=== PATIENT | male | born 1960 | race Caucasian/White ===

== ENCOUNTER 2019-01-09 12:28 | Inpatient (IN) ==
--- OUTSIDE RECORDS SUMMARY | 2019-01-09 12:31 | External Medical Summary | Continuity of Care Document ---
:1960 Author Name Angle Cowan, Provider Address Unavailable Unavailable , Care Team Providers Name Role Phone Columba ODONNELL M.D., Suhail Delatorre Unavailable [email or web address] Meggan DELUNA Unavailable [email or web address] BELLE WATERMAN M.D., Maritza Unavailable Unavailable Unavailable Unavailable Unavailable Assessments Assessed Problems:Constipation Problems Arthritis (716.90) (M19.90) Constipation (564.00) (K59.00) Chronic obstructive pulmonary disease (496) (J44.9) Milia (706.2) (L72.0) Allergies and Adverse Reactions Chantix TABS (Allergy) Medications Polyethylene Glycol 3350 Oral Powder; ta ke 17GM (DISSOLVED IN 8 OUNCES OF WATER) by mouth once daily . DRINK THE MIXTURE as directed MIKIE Broderick Start: 29-Sep-2018 Quantity: 527 Refills: 4 Symbicort 160-4.5 MCG/ACT Inhalation Aer osol; INHALE 2 PUFFS BY MOUTH TWICE DAILY. RINSE MOUTH AFTER USE. Camryn Waterman III Start: 14-Sep-2018 Quantity: 1 6 GM Inhaler Refills: 5 ProAir HFA 108 (90 Base) MCG/ACT Inhalat ion Aerosol Solution; INHALE 2 PUFFS BY MOUTH 4 TIMES DAILY NEEDED MIKIE Charles Start: 06-Jul-2018 Quantity: 1 8.5 GM Inhaler Refills: 5 Ventolin HFA 108 (90 Base) MCG/ACT Inhalation Aerosol Solution; 2 PUFFS QID PRN Camryn Waterman III Start: 12-Jan-2018 Quantity: 1 18 GM Inhaler Refills: 5 Procedures Procedures not documented Immunizations Immunizations not documented Social History - Smoking Status Current every day smoker Interventions Medication ChangesPolyethylene Glycol 3350 Oral Powder - StartDiscussion/Summary Constipation - discussed increased water and fiber intake in diet. Should use miralax for the next few days at bedtime, can mix in prune juice. RTC prn any worsening or persistent sxs. Plan of Treatment Planned Observations Planned Goals not documented Results No Known Results Results not documented Encounters Appointment; Suhail Waterman III, M.D. 12-Jan-2018 15:00 Encounter Diagnosis: Problem not documented Appointment; [facility], [place] [id number] 12-Jan-2018 14:45 Encounter Diagnosis: Problem not documented Appointment; Shama Broderick PA-C 29-Sep-2018 11:15 Encounter Diagnosis: Problem not documented
[2019-01-09 13:19] LABS: Hematocrit (blood only) 45.1 % (42-52); Hemoglobin 16.2 g/dL (14.0-18.0); Mean Corpuscular Hgb Conc 35.9 g/dL (32-36); Mean Corpuscular Volume 88.1 fL (80-100); Mean Platelet Volume 9.9 fL (7.4-10.4); Platelet Count 241 K/uL (130-400); RDW Coefficient of Variation 13.4 % (11.5-14.5); RDW Standard Deviation 43.2 fL (36.4-46.3); Red Blood Count 5.12 M/uL (4.7-6.1); White Blood Count 21.61 K/uL (4.8-10.8)
[2019-01-09] MEDS ORDERED: ONDANSETRON INJ 2 MG/ML 2 ML VIAL IV STA (13:29)
[2019-01-09] MEDS ORDERED: MoRPHine SULFATE 4 MG/ML 1 ML CARP\\VIAL IV PRN (13:29)
[2019-01-09 13:34] LABS: BUN Creatinine Ratio 23.9 (10-20); Calcium 9.7 mg/dl (8.5-10.1); Creatinine Clr Calc Pharmacy 65.2 ml/min; Potassium 4.5 mmol/L (3.5-5.1)
[2019-01-09 13:37] LABS: Albumin Globulin Ratio 1.1 (0.9-2); Globulin 3.6 gm/dl (2.5-4.0); Total Protein 7.6 gm/dl (6.4-8.2)
[2019-01-09 14:08] LABS: Basophils # (auto) 0.01 K/uL (0-0.2); Immature Granulocytes # (auto) 0.09 K/uL (0.00-0.02); Immature Granulocytes % (auto) 0.4 %; Lymphocytes # (auto) 0.63 K/uL (1.2-3.4); Lymphocytes % (auto) 2.9 %; Monocytes # (auto) 0.75 K/uL (0.11-0.59); Monocytes % (auto) 3.5 %; Neutrophils # (auto) 20.13 K/uL (1.4-6.5); Neutrophils % (auto) 93.2 %
[2019-01-09] MEDS ORDERED: IOVERSOL 100ml IV PRN (15:18)
--- NOTE | 2019-01-09 15:32 | CT Scan Report ---
CT abd pelvis IV con only CLINICAL HISTORY: Mid abdominal pain. Vomiting. COMPARISON STUDY: None. TECHNIQUE: The patient was scanned in a dynamic helical fashion during intravenous administration of 94 cc of Optiray 320. A dose lowering technique was utilized adhering to the principles of ALARA. CT DOSE: 232.01 mGy.cm FINDINGS: Lower chest: There is pulmonary emphysema. There is minor right basilar atelectasis/scarring. Liver: There is an 8 mm left lobe hepatic hypodensity, likely representing a cyst. Gallbladder: Unremarkable. Spleen: Normal in size and attenuation. Pancreas: Unremarkable. Adrenal glands: Unremarkable. Kidneys: There are bilateral renal cysts. There is no hydronephrosis. There are nonobstructing right renal calculi measuring up to 3 mm in diameter. Bowel: Evaluation of the bowel is limited given the lack of orally administered contrast and the pauc ity of intra-abdominal fat. There are no transition zones to indicate bowel obstruction. By history t he appendix is surgically absent. There is sigmoid wall thickening. Acute diverticulitis is suspected . There are possible extraluminal gas, and a small perisigmoid abscess may be present. Peritoneum: There is no significant ascites. Vasculature: The abdominal aorta is normal in course and caliber. Adenopathy: None. Pelvic viscera: The bladder, and pelvic viscera are unremarkable. Skeletal structures: No destructive osseous lesions are seen. IMPRESSION: 1. Very difficult study to interpret secondary to the lack of orally administered contrast and the pa ucity of intra-abdominal fat 2. Nonobstructing left-sided nephrolithiasis 3. No evidence of bowel obstruction 4. Sigmoid wall thickening. Diverticulitis is suspected 5. Possible extraluminal gas bubbles and a small fluid collection in the perisigmoid region. A focal perforation with a small perisigmoid abscess must be considered. 6. If follow-up imaging is performed, oral and intravenous contrast should be administered. Electronically signed by: David Whitehead M.D. 01/09/2019 3:31 PM
[2019-01-09] MEDS ORDERED: PIPERACILLIN/TAZOBACTAM 4.5 GM/120 ML BAG IV ONE (15:35)
[2019-01-09] MEDS ORDERED: PIPERACILL/TAZOBAC CONSULT ACTIVE PRN (15:35)
--- NOTE | 2019-01-09 16:08 | History & Physical Report ---
Date of Service January 09, 2019 Assessment & Plan (1) Diverticulitis: As noted on CTAP, concerning for possible abscess and perf Awaiting surgical eval NPO with IVF morphine, zofran Started on zosyn in the ED, will continue WBC elevated, afebrile (2) Tobacco use disorder: Declines nicotine patch, ordered PRN (3) COPD (chronic obstructive pulmonary disease): continue home meds (4) DVT prophylaxis: SCDs only in case of need for OR History of Present Illness Primary Care Provider: NO PCP 58 y/o M c/o abd pain. 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 He thought he was dehydrated and increased his water intake, but this did not help and in fact his pain became worse. He had similar epigastric pain about 2.5-3 months ago and was dx with SBO as an outpt. He took miralax and this resolved. Given the pain was similar, he tried miralax again, but his pain continued to get worse. He started to have n/v today with worsening pain so he came to the ED for eval. Pt has no prior hx of diverticulitis. Pt was given IVF, zosyn, pain medications in the ED and feels his pain is now 4- 5/10, which is better, but still present. His last emesis was in the ED. He has not eaten in several days due to this pain. Pt denies fever, SOB, chest pain, c/d, LE pain or swelling. Allergies Allergy/AdvReac Type Severity Reaction Status Date / Time No Known Allergies Allergy Unverified 01/09/19 13:58 Home Medications Home Medications Medication Instructions Recorded Confirmed Type albuterol sulfate [ProAir HFA] 2 puff INHALATION QID PRN 01/09/19 01/09/19 History Past Med/Surg History Medical History COPD (chronic obstructive pulmonary disease) Social History Feels Safe at Home: Yes Smoking Status: Current every day smoker packs per day: 1 ; Hx Alcohol Use: No Hx Substance Use: No Review of Systems Review of Systems: Pertinent positives and negatives reviewed in HPI--all others negative Physical Exam Constitutional: well developed and + thin Eyes: normal visual anderson by confrontation and + anicteric sclerae Neck: normal visual inspection and trachea midline Respiratory: normal respiratory effort, lungs clear to auscultation Cardiovascular: Rate/Rhythm: regular rate and regular rhythm Gastrointestinal (Abdomen): Inspection/Auscultation: abdomen not distended Percussion/Palpation: + abdomen tender (epigastric, nonTTP in LLQ) and abdomen soft Musculoskeletal: Head/Neck/Chest: normocephalic and head atraumatic negative for edema, peripheral pulses intact Skin: no rashes, warm and dry Neurologic: awake; not confused Speech / Cognition: normal speech Psychiatric: A+Ox3, euthymic affect Results & Data Vital Signs (Past 12 Hours) Vital Signs Temp Pulse Pulse Resp BP BP Pulse Ox 01/09/19 15:24 82 20 140/87 93 01/09/19 13:10 98 01/09/19 12:44 36.5 C 64 20 134/80 98 Diagnostic Findings CTAP: diverticulitis with possible abscess and perf Code Status & VTE Plan Code Status Full code VTE Prophylaxis Plan VTE Prophylaxis will be ordered: Yes PG Care Time/CCT Total # of Minutes Spent Total Time Spent with Patient: Total time spent is greater than 50% in coordination of care (as documented) at patient's floor/unit and/or counseling patient:
[2019-01-09] MEDS ORDERED: MAGNESIUM HYDROXIDE SUSP 30 ML UDC PO PRN (16:50)
[2019-01-09] MEDS ORDERED: ACETAMINOPHEN 325 MG TAB PO PRN (16:50)
[2019-01-09] MEDS ORDERED: NICOTINE 21 MG/24 HR TDSY TD PRN (17:15)
[2019-01-09] MEDS: ONDANSETRON INJ 2 MG/ML 2 ML VIAL IV PRN (17:19)
[2019-01-09] MEDS: D5W AND NSS 1,000 ML IV SCH (17:26)
[2019-01-09 18:04] LABS: Appearance Urine Clear (Clear); Bacteria Urine Automated Negative (Negative); Bilirubin Urine Negative (Negative); Blood Urine 1+ (Negative); Color Urine Yellow; Glucose Urine UA Negative (Negative); Ketones Urine 1+ (Negative); Leukocyte Esterase Urine Negative (Negative); Nitrite Urine Negative (Negative); Protein Urine Trace (Negative); Specific Gravity Urine > 1.045 (1.000-1.030); Urobilinogen Urine Negative (Negative); pH Urine 5.5 (4.5-7.5)
--- NOTE | 2019-01-09 18:28 | Emergency Department Note ---
Entered by Venessa Aguilar acting as a scribe for Oumar Nova MD ED Provider Note CHIEF COMPLAINT: Abdominal pain HISTORY OF PRESENT ILLNESS: The patient is a 58 year old male who presents to the Emergency Room with complaints of abdominal pain that started 3 days ago. The patient states that he is currently in no pain. The patient notes that the pain does reach a 10/10 level on occasion. The patient notes that he has also been vomiting and has the chills. The patient denies taking any medication for the pain, but notes that he did take MiraLAX which is normal for him. The patient denies alcohol use, drugs use and abdomen surgeries. Pt denies LOC, headache, fevers, diaphoresis, visual changes, neck pain, chest pain, breathing difficulties, nausea, back pain, melena, hematochezia, urinary symptoms, numbness, weakness, lymphadenopathy, rash, or other complaints. REVIEW OF SYSTEMS: See HPI for pertinent positives and negatives. A total of ten systems were reviewed and were otherwise negative. PMHx/PSHx: COPD SOCIAL HISTORY: Patient lives at home. PHYSICAL EXAM: GENERAL: Awake, alert, well-appearing, in no distress HENT: Normocephalic, atraumatic. Oropharynx unremarkable. EYES: PERRL. Normal conjunctiva. Sclera non-icteric. NECK: Inspection normal. Non-tender. Supple. No nuchal rigidity. FROM. No masses. RESPIRATORY: Clear to auscultation. No wheezes. No rales. Normal respiratory effort. CARDIAC: Normal rate. Normal rhythm. No murmurs. No rubs. Extremities warm and well perfused. Pulses equal. No JVD. GI: Mid-abdominal tenderness. Soft, non-distended. No rebound or guarding. No masses. RECTAL: Deferred. MUSCULOSKELETAL: Atraumatic. Chest examination reveals no tenderness. The back is symmetrical on inspection without obvious abnormality. There is no CVA tenderness to palpation. No joint edema. LOWER EXTREMITIES: Calves are equal size bilaterally and non-tender. No edema. No discoloration. NEURO: Normal sensorium. No sensory or motor deficits noted. SKIN: No rash or jaundice noted. EMERGENCY DEPARTMENT COURSE: 1328: Past medical records reviewed. The patient was evaluated in room A3, and a complete history and physical examination were performed. 1453: I discussed the patient's case with Dr. Ogden- General surgery and he is agreeable for admission. 1559: I discussed the patient's case with Dr. Orona- [facility] Hospitalist. She will evaluate the patient for further management. MEDICAL DECISION MAKING: A3 Triage Nursing notes reviewed and agree them. Additional history obtained from the patient's . The patient's history was concerning for abdominal pain. Differential diagnosis: Etiologies such as , pancreatitis, obstruction, diverticulitis, PUD, biliary pathology, UTI, mesenteric ischemia, aortic pathology, infections, inflammatory bowel disease, renal colic, appendicitis, as well as others were entertained. Physical examination findings: As above. ER treatment provided: IV morphine IV Zofran IV Zosyn IV saline hydration On reassessment the patient felt better. Diagnostics interpreted by me: ECG: No acute ischemia or dysrhythmia. The labs revealed a moderate leukocytosis on CBC of 21,000. Chemistry panel and urinalysis unremarkable. Imaging studies: CT scan of the abdomen pelvis was performed and showed microperforated diverticulitis with questionable abscess. Consultation: A consultation was placed with the general surgeon on-call, Dr. Ogden. He agreed with the antibiotics and medical admission. Consultation was placed with Dr. Orona of internal medicine.. The case was discussed and diagnostics were reviewed. The patient was evaluated in the ER for further treatment. IMPRESSION: Diverticulitis of intestine with perforation and abscess, abdominal pain, leukocytosis. PLAN: Admitted as inpatient The scribe's documentation has been prepared under my direction and personally reviewed by me in its entirety. I confirm that the note above accurately reflects all work, treatment, procedures, and medical decision making performed by me. CRITICAL CARE: I have personally spent greater than 30 minutes of critical care time in the direct management of this patient. This includes bedside care, interpretation of diagnostic studies, and testing, discussion with consultants, patient, and family members, and other required patient management activities. This 30 minutes is in excess of all separately billable procedures. Impression & Plan Diverticulitis of intestine with perforation and abscess, Abdominal pain, Leukocytosis Past Med/Surg History Medical History COPD (chronic obstructive pulmonary disease) Social History Preferred Language: Bulgarian Communication Ability: Effective Grinding Room Supervisor Required: No Beliefs That Will Affect Care: None Current Living Situation: Spouse Feels Safe at Home: Yes Smoking Status: Current every day smoker Tobacco Type: cigarettes ; packs per day: 1 ; Second Hand Exposure: No ; Hx Alcohol Use: No Hx Substance Use: No Results & Data Vital Signs Vital Signs - 24 hr 01/09/19 12:44 01/09/19 13:10 01/09/19 15:24 Temperature 36.5 C Temperature Source Oral Sepsis Recent Fever Within 48 Hours No Sepsis New/Unexplained Change in Mental Status No Sepsis Action Taken by Nursing No Action Required Pulse Rate 64 Pulse Rate [Apical] 82 Pulse Rhythm [Apical] Regular Pulse Strength [Apical] Normal Respiratory Rate 20 20 Respiratory Effort / Characteristics Non-Labored Spontaneous Respiratory Depth Normal Respiratory Pattern Regular Blood Pressure 134/80 Blood Pressure [Left Arm] 140/87 Blood Pressure Mean 98 Blood Pressure Mean [Left Arm] 104 Blood Pressure Position Sitting Blood Pressure Position [Left Arm] Sitting Pulse Oximetry 98 98 93 Oxygen Delivery Method Room Air Room Air Home Medications Current Medication List: was personally reviewed by me Laboratory Data Attestation: I reviewed the patient's lab results. Result diagrams: 01/09/19 13:10 01/09/19 13:10 Lab Results 01/09/19 01/09/19 Range/Units 13:10 13:10 WBC 21.61 H (4.8-10.8) K/uL RBC 5.12 (4.7-6.1) M/uL Hgb 16.2 (14.0-18.0) g/dL Hct 45.1 (42-52) % MCV 88.1 (80-100) fL MCH 31.6 (25-34) pg MCHC 35.9 (32-36) g/dL RDW Std Deviation 43.2 (36.4-46.3) fL RDW Coeff of Shawanda 13.4 (11.5-14.5) % Plt Count 241 (130-400) K/uL MPV 9.9 (7.4-10.4) fL Immature Gran % (Auto) 0.4 % Neut % (Auto) 93.2 % Lymph % (Auto) 2.9 % Burke % (Auto) 3.5 % Eos % (Auto) 0.0 % Baso % (Auto) 0.0 % Immature Gran # (Auto) 0.09 H (0.00-0.02) K/uL Neut # (Auto) 20.13 H (1.4-6.5) K/uL Lymph # (Auto) 0.63 L (1.2-3.4) K/uL Burke # (Auto) 0.75 H (0.11-0.59) K/uL Eos # (Auto) 0.00 (0-0.5) K/uL Baso # (Auto) 0.01 (0-0.2) K/uL Sodium 134 L (136-145) mmol/L Potassium 4.5 (3.5-5.1) mmol/L Chloride 99 (98-107) mmol/L Carbon Dioxide 29 (21-32) mmol/L Anion Gap 6.0 (3-11) BUN 21 H (7-18) mg/dl Creatinine 0.88 (0.6-1.4) mg/dl Est Cr Clr Drug Dosing 65.2 ml/min Est GFR ( Amer) 109.0 Est GFR (Non-Af Amer) 94.0 BUN/Creatinine Ratio 23.9 H (10-20) Glucose 138 H (70-99) mg/dl Calcium 9.7 (8.5-10.1) mg/dl Total Bilirubin 1.0 (0.2-1) mg/dl AST 14 L (15-37) U/L ALT 17 (12-78) U/L Alkaline Phosphatase 85 (45-117) U/L Total Protein 7.6 (6.4-8.2) gm/dl Albumin 4.0 (3.4-5.0) gm/dl Globulin 3.6 (2.5-4.0) gm/dl Albumin/Globulin Ratio 1.1 (0.9-2) Lipase 61 L (73-393) U/L Administered Medications Dextrose/Sodium Chloride (D5w And Nss) 1,000 mls @ 100 mls/hr IV .Q10H SHANELLE Stop: 02/08/19 16:59 Last Admin: 01/09/19 17:26 Dose: 100 mls/hr Documented by: [id number] Ioversol (Optiray 320 100ml) 94 ml IV ONCE PRN PRN Reason: Interaction Checking Stop: 01/13/19 15:17 Last Admin: 01/09/19 15:19 Dose: 94 ml Documented by: [id number] Miscellaneous Information (Consult) 1 ea N/A UD PRN PRN Reason: Consult Stop: 02/08/19 15:34 Last Admin: 01/09/19 16:02 Dose: 1 ea Documented by: [id number] Ondansetron HCl (Zofran) 4 mg IV Q6H PRN PRN Reason: Nausea Stop: 02/08/19 16:49 Last Admin: 01/09/19 17:19 Dose: 4 mg Documented by: [id number] Discontinued Medications Piperacillin Sod/Tazobactam Sod (Zosyn) 4.5 gm in 120 mls @ 240 mls/hr IV NOW ONE Stop: 01/09/19 16:04 Last Infusion: 01/09/19 16:31 Dose: 0 mls/hr Documented by: [id number] Admin: 01/09/19 16:01 Dose: 240 mls/hr Documented by: [id number] Morphine Sulfate (Morphine Sulfate) 4 mg IV Q15M PRN PRN Reason: Pain Stop: 01/23/19 13:28 Last Admin: 01/09/19 13:39 Dose: 4 mg Documented by: [id number] Ondansetron HCl (Zofran) 4 mg IV NOW STA Stop: 01/09/19 13:30 Last Admin: 01/09/19 13:39 Dose: 4 mg Documented by: [id number] Imaging Data Radiologist's Impression: Radiology results as stated below per my review and the radiologist's interpretation: CT abd pelvis IV con only CLINICAL HISTORY: Mid abdominal pain. Vomiting. COMPARISON STUDY: None. TECHNIQUE: The patient was scanned in a dynamic helical fashion during intravenous administration of 94 cc of Optiray 320. A dose lowering technique was utilized adhering to the principles of ALARA. CT DOSE: 232.01 mGy.cm FINDINGS: Lower chest: There is pulmonary emphysema. There is minor right basilar atelectasis/scarring. Liver: There is an 8 mm left lobe hepatic hypodensity, likely representing a cyst. Gallbladder: Unremarkable. Spleen: Normal in size and attenuation. Pancreas: Unremarkable. Adrenal glands: Unremarkable. Kidneys: There are bilateral renal cysts. There is no hydronephrosis. There are nonobstructing right renal calculi measuring up to 3 mm in diameter. Bowel: Evaluation of the bowel is limited given the lack of orally administered contrast and the paucity of intra-abdominal fat. There are no transition zones to indicate bowel obstruction. By history the appendix is surgically absent. There is sigmoid wall thickening. Acute diverticulitis is suspected. There are possible extraluminal gas, and a small perisigmoid abscess may be present. Peritoneum: There is no significant ascites. Vasculature: The abdominal aorta is normal in course and caliber. Adenopathy: None. Pelvic viscera: The bladder, and pelvic viscera are unremarkable. Skeletal structures: No destructive osseous lesions are seen. IMPRESSION: 1. Very difficult study to interpret secondary to the lack of orally administered contrast and the paucity of intra-abdominal fat 2. Nonobstructing left-sided nephrolithiasis 3. No evidence of bowel obstruction 4. Sigmoid wall thickening. Diverticulitis is suspected 5. Possible extraluminal gas bubbles and a small fluid collection in the perisigmoid region. A focal perforation with a small perisigmoid abscess must be considered. 6. If follow-up imaging is performed, oral and intravenous contrast should be administered. Electronically signed by: David Whitehead M.D. 01/09/2019 3:31 PM Blood Pressure Blood Pressure Findings: Normal blood pressure Blood Pressure Disposition: did not require urgent referral Discharge Plan Visit Data *Final* Discharge Date/Time: 01/09/19 16:37 Chief Complaint: Abdominal Pain ED Provider: Oumar Nova Discharge Problem: Diverticulitis of intestine with perforation and abscess, Abdominal pain, Leukocytosis Patient Disposition: Admitted As Inpatient Discharge Instructions Interventions: ED Discharge Assessment Last Done: 01/09/19 16:37 Discharge Problem: Diverticulitis of intestine with perforation and abscess Qualifiers: Diverticulitis site: unspecified part of intestinal tract Diverticulitis bleeding: unspecified bleeding status Qualified Code(s): K57.80 - Diverticulitis of intestine, part unspecified, with perforation and abscess without bleeding Abdominal pain Qualifiers: Abdominal location: unspecified location Qualified Code(s): R10.9 - Unspecified abdominal pain Leukocytosis Qualifiers: Leukocytosis type: unspecified Qualified Code(s): D72.829 - Elevated white blood cell count, unspecified The scribe's documentation has been prepared under my direction and personally reviewed by me in its entirety. I confirm that the note above accurately r eflects all work, treatment, procedures, and medical decision making performed by me.
[2019-01-09] MEDS: PIPERACILLIN/TAZOBACTAM 3.375 GM in DEXTROSE 5% 100 ML IV SCH (20:45)
[2019-01-09] MEDS: MoRPHine SULFATE 2 MG/ML CARP IV PRN (22:04)
[2019-01-10] MEDS: MoRPHine SULFATE 2 MG/ML CARP IV PRN ×2 (02:13→08:15)
[2019-01-10] MEDS: D5W AND NSS 1,000 ML IV SCH ×3 (03:14→22:50)
[2019-01-10] MEDS: PIPERACILLIN/TAZOBACTAM 3.375 GM in DEXTROSE 5% 100 ML IV SCH ×3 (04:54→21:18)
[2019-01-10 06:58] LABS: Hemoglobin 14.2 g/dL (14.0-18.0); Mean Corpuscular Hgb Conc 36.4 g/dL (32-36); Mean Corpuscular Volume 87.4 fL (80-100); Mean Platelet Volume 9.5 fL (7.4-10.4); Platelet Count 255 K/uL (130-400); RDW Coefficient of Variation 13.5 % (11.5-14.5); RDW Standard Deviation 42.8 fL (36.4-46.3); Red Blood Count 4.46 M/uL (4.7-6.1); White Blood Count 22.78 K/uL (4.8-10.8)
[2019-01-10 07:24] LABS: BUN Creatinine Ratio 23.8 (10-20); Calcium 8.4 mg/dl (8.5-10.1); Creatinine Clr Calc Pharmacy 78.6 ml/min; Est GFR (African American) 117.7; Est GFR (Non-African American) 101.5
[2019-01-10 07:25] LABS: Basophils # (auto) 0.01 K/uL (0-0.2); Eosinophils # (auto) 0.01 K/uL (0-0.5); Immature Granulocytes # (auto) 0.05 K/uL (0.00-0.02); Immature Granulocytes % (auto) 0.2 %; Lymphocytes # (auto) 1.05 K/uL (1.2-3.4); Lymphocytes % (auto) 4.6 %; Monocytes # (auto) 1.47 K/uL (0.11-0.59); Monocytes % (auto) 6.5 %; Neutrophils # (auto) 20.19 K/uL (1.4-6.5); Neutrophils % (auto) 88.7 %
--- NOTE | 2019-01-10 09:36 | Surgery Consultation ---
Date of Consultation January 10, 2019 Assessment & Plan (1) Diverticulitis of intestine with perforation and abscess: no surgical indications yet. keep npo continue iv antibiotics and pain control if no better clinically by tomorrow will repeat CT scan with oral contrast d/w primary team History of Present Illness Attending Physician: Rosario Orona DO History of Present Illness pt with 3-4 day history of generalized abdominal pain which worsened. CT reveals acute diverticulitis. ? micro-perf with small abcess. pt still feeling "about the same" as when he came in. Allergies Allergy/AdvReac Type Severity Reaction Status Date / Time No Known Allergies Allergy Unverified 01/09/19 13:58 Home Medications Home Medications Medication Instructions Recorded Confirmed Type albuterol sulfate [ProAir HFA] 2 puff INHALATION QID PRN 01/09/19 01/09/19 History Patient History Medical History COPD (chronic obstructive pulmonary disease) Social History Preferred Language: Slovenian Communication Ability: Effective Chocolate Molder Required: No Beliefs That Will Affect Care: None Current Living Situation: Spouse Feels Safe at Home: Yes Smoking Status: Current every day smoker Tobacco Type: cigarettes ; packs per day: 1 ; Second Hand Exposure: No ; Hx Alcohol Use: No Hx Substance Use: No Review of Systems Review of Systems: All systems reviewed & are unremarkable except as noted in HPI & below Physical Exam Constitutional: WD/WN, vitals as above no acute distress and not ill appearing Eyes: PERRL, conjunctivae normal, anicteric sclerae EOM intact bilaterally ENMT: external ear and nose normal, oropharynx normal Ears: no hearing impairment Neck: trachea midline, no thyromegaly Respiratory: normal respiratory effort; no respiratory distress and does not use accessory muscles Cardiovascular: Rate/Rhythm: regular rate and regular rhythm Gastrointestinal (Abdomen): soft. nd. +suprapubic ttp. +guarding. no rigidity. Skin: no rashes, warm and dry Psychiatric: Orientation: alert, oriented x 3 and cooperative Results & Data Vital Signs (Past 12 Hours) Vital Signs Temp Pulse Resp BP Pulse Ox 01/10/19 07:18 37.2 C 77 16 133/85 91 01/09/19 23:05 37.1 C 83 16 121/80 91 PG Care Time/CCT Total # of Minutes Spent Total Time Spent with Patient: Total time spent is greater than 50% in coordination of care (as documented) at patient's floor/unit and/or counseling patient: (1) Diverticulitis of intestine with perforation and abscess Diverticulitis bleeding: unspecified bleeding status Diverticulitis site: unspecified part of intestinal tract Qualified Code(s): K57.80 - Diverticulitis of intestine, part unspecified, with perforation and abscess without bleeding
[2019-01-10] MEDS: ACETAMINOPHEN 1,000 MG/100 ML VIAL IV PRN ×2 (09:42→19:22)
--- NOTE | 2019-01-10 11:46 | Hospitalist Progress Note ---
Date of Service January 10, 2019 Assessment & Plan (1) Diverticulitis: Patient seen by Dr. Ogden from general surgery this morning. Plan is to continue bowel rest with IVF and IV Zosyn. Leukocytosis persists this morning at 22.78. We will continue to monitor. Repeat in a.m. He remains afebrile. Patient continues to have pain 10 out of 10 [address]. Discussed with Dr. Ogden this morning. Will discontinue morphine, and transition him to IV Dilaudid. We will also add an IV Tylenol. (2) Tobacco use disorder: Declines nicotine patch, ordered PRN (3) COPD (chronic obstructive pulmonary disease): Stable with no acute exacerbations. Continue home meds (4) DVT prophylaxis: SCDs only in case of need for OR Subjective 58-year-old male admitted with diverticulitis. Patient complaining of abdominal pain 10 out of 10 this morning after IV morphine. He denies nausea or vomiting. Denies any bowel movements. He was seen by Dr. Ogden this morning, who plans to continue bowel rest and IVF. Patient remains on Zosyn. Review of Systems Constitutional: no fever and no chills Eyes: no worsening vision Ear, Nose, Mouth, Throat: no dizziness Respiratory: no dyspnea Cardiovascular: no chest pain Gastrointestinal: + abdominal pain (10/10); no nausea and no vomiting Genitourinary: no dysuria, no difficulty urinating and no hematuria Psychiatric: no confusion Physical Exam Physical Exam: Temp Pulse Resp BP Pulse Ox 37.2 C 77 16 133/85 91 01/10/19 07:18 01/10/19 07:18 01/10/19 07:18 01/10/19 07:18 01/10/19 07:18 Patient is afebrile. Vital signs stable. Constitutional: + acute distress (mild acute distress), + thin and cooperative ENMT: Ears: no hearing impairment Neck: trachea midline, no thyromegaly neck nontender Respiratory: normal respiratory effort, lungs clear to auscultation Cardiovascular: RRR, no murmur, no edema Gastrointestinal (Abdomen): Inspection/Auscultation: normal bowel sounds; abdomen not distended Percussion/Palpation: + abdomen tender and abdomen soft; no guarding Psychiatric: A+Ox3, euthymic affect Results & Data Vital Signs (Past 12 Hours) Vital Signs Temp Pulse Resp BP Pulse Ox 08/18/19 07:18 37.2 C 77 16 133/85 91 PG Care Time/CCT Total # of Minutes Spent Total Time Spent with Patient: Total time spent is greater than 50% in coordination of care (as documented) at patient's floor/unit and/or counseling patient:
[2019-01-10] MEDS: ONDANSETRON INJ 2 MG/ML 2 ML VIAL IV PRN (13:52)
[2019-01-10] MEDS: HYDROmorphone INJ 0.5 MG/0.5 ML SYR IV PRN ×2 (13:53→17:14)
[2019-01-11] MEDS: HYDROmorphone INJ 0.5 MG/0.5 ML SYR IV PRN ×6 (00:48→23:37)
[2019-01-11] MEDS: PIPERACILLIN/TAZOBACTAM 3.375 GM in DEXTROSE 5% 100 ML IV SCH ×3 (05:55→19:57)
[2019-01-11] MEDS: D5W AND NSS 1,000 ML IV SCH ×2 (06:01→16:02)
[2019-01-11 06:06] LABS: Basophils # (auto) 0.02 K/uL (0-0.2); Basophils % (auto) 0.1 %; Eosinophils # (auto) 0.02 K/uL (0-0.5); Eosinophils % (auto) 0.1 %; Hematocrit (blood only) 38.1 % (42-52); Immature Granulocytes # (auto) 0.04 K/uL (0.00-0.02); Immature Granulocytes % (auto) 0.2 %; Lymphocytes # (auto) 0.73 K/uL (1.2-3.4); Lymphocytes % (auto) 4.4 %; Mean Corpuscular Hgb Conc 34.1 g/dL (32-36); Mean Corpuscular Volume 89.4 fL (80-100); Mean Platelet Volume 9.6 fL (7.4-10.4); Monocytes % (auto) 4.8 %; Neutrophils % (auto) 90.4 %; Platelet Count 221 K/uL (130-400); RDW Coefficient of Variation 13.6 % (11.5-14.5); RDW Standard Deviation 44.6 fL (36.4-46.3); Red Blood Count 4.26 M/uL (4.7-6.1); White Blood Count 16.61 K/uL (4.8-10.8)
[2019-01-11 06:41] LABS: BUN Creatinine Ratio 21.2 (10-20); Calcium 8.1 mg/dl (8.5-10.1); Creatinine Clr Calc Pharmacy 92.5 ml/min; Est GFR (African American) 125.8; Est GFR (Non-African American) 108.6; Potassium 3.8 mmol/L (3.5-5.1)
--- NOTE | 2019-01-11 08:03 | Surgery Progress Note ---
Date of Service January 11, 2019 Assessment & Plan (1) Diverticulitis of intestine with perforation and abscess: clinically improving. afebrile. wbc decreasing would keep npo/ice chips for today yet will order ct with oral contrast for tomorrow before initiating diet. Subjective pt still with supra-pubic pain but improved from yesterday. no new complaints. Physical Exam Physical Exam: alert/oriented. nad abd: soft. +ttp supra-pubic region and LLQ. no peritoneal signs. Results & Data Vital Signs (Past 12 Hours) Vital Signs Temp Pulse Pulse Resp BP Pulse Ox 01/11/19 07:51 36.8 C 71 18 120/78 93 01/10/19 23:02 37.1 C 85 16 121/73 90 PG Care Time/CCT Total # of Minutes Spent Total Time Spent with Patient: Total time spent is greater than 50% in coordination of care (as documented) at patient's floor/unit and/or counseling patient: (1) Diverticulitis of intestine with perforation and abscess Diverticulitis bleeding: unspecified bleeding status Diverticulitis site: unspecified part of intestinal tract Qualified Code(s): K57.80 - Diverticulitis of intestine, part unspecified, with perforation and abscess without bleeding
--- NOTE | 2019-01-11 11:33 | Hospitalist Progress Note ---
Date of Service January 11, 2019 Assessment & Plan (1) Diverticulitis: - Initial CT with suggested diverticulitis with possible extraluminal gas and fluid collection in perisigmoid region; planning on repeat CT on 01/12 prior to diet advancement - Leukocytosis improving and remaining afebrile; pain improving be remains and better response with Dilaudid; Dilaudid PRN and Tylenol PRM - Continue NPO/ice chips pending repeat CT tomorrow; IVF at 100 mL/hr and Zosyn therapy - Reports no bowel movement since admission but continues to pass flatus Present on Admission?: Yes (2) COPD (chronic obstructive pulmonary disease): - No acute exacerbation; utilizing PRN oxygen for comfort here but does not utilize at home - Albuterol PRN; denies need for nebulizers at this time Present on Admission?: Yes (3) Tobacco use disorder: - STABLE - Declines nicotine patch, ordered PRN (4) DVT prophylaxis: - SCDs/Ambulation Disposition: Await pain improvement/diet advancement; 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 Pain medication is helping. He continues to pass flatus but no bowel movement. He does report some congestion which he states is normal for him given his COPD and utilizes as needed O2 but normally does not use this at home. Verbalizes no new complaints at this time. Review of Systems Constitutional: no fever and no chills Ear, Nose, Mouth, Throat: + nasal congestion; no sore throat Respiratory: + chest congestion; no cough, no dyspnea and no wheezing Cardiovascular: no chest pain and no edema Gastrointestinal: + abdominal pain and + constipation; no nausea, no vomiting and no diarrhea/loose stools Genitourinary: no dysuria Integumentary: no rash Physical Exam Constitutional: WD/WN, vitals as above Eyes: + anicteric sclerae ENMT: Ears: no hearing impairment Neck: normal visual inspection and trachea midline Respiratory: normal respiratory effort Auscultation: lungs clear to auscultation bilaterally Cardiovascular: RRR, no murmur, no edema Gastrointestinal (Abdomen): Inspection/Auscultation: normal bowel sounds Percussion/Palpation: + abdomen tender Musculoskeletal: Head/Neck/Chest: normocephalic and head atraumatic Skin: no rashes, warm and dry Neurologic: moves all extremities Psychiatric: A+Ox3, euthymic affect Results & Data Vital Signs (Past 12 Hours) Vital Signs Temp Pulse Resp BP Pulse Ox 01/11/19 07:51 36.8 C 71 18 120/78 93 PG Care Time/CCT Total # of Minutes Spent Total Time Spent with Patient: Total time spent is greater than 50% in coordination of care (as documented) at patient's floor/unit and/or counseling patient:
[2019-01-11] MEDS: ACETAMINOPHEN 1,000 MG/100 ML VIAL IV PRN (19:36)
[2019-01-12] MEDS: D5W AND NSS 1,000 ML IV SCH ×3 (01:53→21:37)
[2019-01-12] MEDS: HYDROmorphone INJ 0.5 MG/0.5 ML SYR IV PRN ×5 (03:17→17:46)
[2019-01-12] MEDS: PIPERACILLIN/TAZOBACTAM 3.375 GM in DEXTROSE 5% 100 ML IV SCH ×3 (05:01→20:19)
[2019-01-12] MEDS: ACETAMINOPHEN 1,000 MG/100 ML VIAL IV PRN ×2 (06:19→19:49)
[2019-01-12 07:10] LABS: Basophils # (auto) 0.03 K/uL (0-0.2); Basophils % (auto) 0.2 %; Eosinophils # (auto) 0.07 K/uL (0-0.5); Eosinophils % (auto) 0.4 %; Hematocrit (blood only) 38.8 % (42-52); Hemoglobin 13.5 g/dL (14.0-18.0); Immature Granulocytes # (auto) 0.05 K/uL (0.00-0.02); Immature Granulocytes % (auto) 0.3 %; Lymphocytes # (auto) 1.07 K/uL (1.2-3.4); Lymphocytes % (auto) 6.7 %; Mean Corpuscular Hgb Conc 34.8 g/dL (32-36); Mean Corpuscular Volume 88.8 fL (80-100); Mean Platelet Volume 9.6 fL (7.4-10.4); Monocytes # (auto) 1.12 K/uL (0.11-0.59); Neutrophils # (auto) 13.64 K/uL (1.4-6.5); Neutrophils % (auto) 85.4 %; Platelet Count 277 K/uL (130-400); RDW Coefficient of Variation 13.5 % (11.5-14.5); RDW Standard Deviation 44.4 fL (36.4-46.3); Red Blood Count 4.37 M/uL (4.7-6.1); White Blood Count 15.98 K/uL (4.8-10.8)
[2019-01-12 07:53] LABS: BUN Creatinine Ratio 13.1 (10-20); Calcium 8.3 mg/dl (8.5-10.1); Creatinine Clr Calc Pharmacy 86.9 ml/min; Est GFR (African American) 122.7; Est GFR (Non-African American) 105.8; Potassium 3.5 mmol/L (3.5-5.1)
[2019-01-12] MEDS ORDERED: IOVERSOL 100ml IV PRN (08:11)
--- NOTE | 2019-01-12 08:34 | Surgery Progress Note ---
Date of Service January 12, 2019 Assessment & Plan (1) Diverticulitis of intestine with perforation and abscess: clinically doing much better results of CT pending continue IV antibiotics if CT looks ok we can start clears, possibly full liquids later tonight/tomorrow AM Subjective continues to feel better each day. currently no pain. "hungry" Physical Exam Physical Exam: alert/oriented. nad abd: soft. minimal LLQ/suprapubic tenderness Results & Data Vital Signs (Past 12 Hours) Vital Signs Temp Pulse Resp BP Pulse Ox 01/12/19 06:55 36.7 C 71 20 135/75 93 01/11/19 22:59 36.9 C 72 16 142/80 H 91 PG Care Time/CCT Total # of Minutes Spent Total Time Spent with Patient: Total time spent is greater than 50% in coordination of care (as documented) at patient's floor/unit and/or counseling patient: (1) Diverticulitis of intestine with perforation and abscess Diverticulitis bleeding: unspecified bleeding status Diverticulitis site: unspecified part of intestinal tract Qualified Code(s): K57.80 - Diverticulitis of intestine, part unspecified, with perforation and abscess without bleeding
--- NOTE | 2019-01-12 08:41 | CT Scan Report ---
ABDOMEN AND PELVIS CT WITH IV AND ORAL CONTRAST CT DOSE: 241.28 mGycm HISTORY: Acute lower abdominal pain with diverticulitis. diverticulitis, ? abscess TECHNIQUE: Multiaxial CT images of the abdomen and pelvis were performed following the use of intrave nous and oral contrast. A dose lowering technique was utilized adhering to the principles of ALARA. COMPARISON STUDY: CT abdomen and pelvis 01/09/2019. FINDINGS: Trace pleural effusions. Emphysema with bibasilar bronchial wall thickening. Mild dependent subsegmen tania bibasilar atelectasis. There is no gross pneumatosis or pneumoperitoneum. Imaged inferior cardiac chambers appear unremarkable. Probable cyst of the left hepatic lobe, 7 mm. Mild periportal edema. M ild gallbladder distention. Mild prominence of the intrahepatic and extrahepatic biliary tree without obstructing lesion identified. Pancreas, spleen and adrenal glands appear unremarkable. There are a few scattered cysts noted about the kidneys bilaterally measuring up to 11 mm on the left . There are least 3 nonobstructing calculi noted about the left kidney measuring up to 4 mm. No urete ral calculi or obstructive uropathy identified. Mild urinary bladder wall thickening with mild prosta megaly. Calcified plaque of the abdominal aorta without aneurysm. No adenopathy. Study is again diffi cult to interpret secondary to paucity of intra-abdominal fat. No small bowel obstruction. Wall thick ening of the sigmoid colon is redemonstrated with a few scattered foci of extraluminal air within the sigmoid mesocolon (for example image 256 series 3). Additionally, there is an air and fluid-filled s tructure within the presacral distribution on image 232 series 3 which measures 2.1 x 3.2 cm, unchang ed from comparison. No large drainable fluid collection. Air-fluid levels noted throughout the large bowel suggestive of diarrheal illness. Nonvisualization of the appendix. Soft tissues are unremarkabl e. Bones appear to be intact. No suspicious bone lesions. IMPRESSION: 1. Circumferential wall thickening of the sigmoid colon redemonstrated suggestive of acute diverticul itis or colitis. Again noted are several foci of extraluminal air within the sigmoid mesocolon compat ible with associated microperforation. Air and fluid-filled structure within the presacral distributi on measuring up to 2.1 x 3.2 cm is unchanged suggestive of a small abscess or bowel loop. Close clini chikis follow-up is needed. 2. No bowel obstruction. 3. Nonobstructing left renal calculi. 4. Air-fluid levels throughout the colon suggestive of diarrheal illness. 5. Additional findings as above. Electronically signed by: Dustin Ferris M.D. 01/12/2019 8:40 AM
--- NOTE | 2019-01-12 12:46 | Hospitalist Progress Note ---
Date of Service January 12, 2019 Assessment & Plan (1) Diverticulitis: - Initial CT which suggested diverticulitis with possible extraluminal gas and fluid collection in perisigmoid region; repeat CT on 01/12 with redemonstration of findings on initial CT - Leukocytosis improving and remaining afebrile; pain improving be remains and better response with Dilaudid; Dilaudid PRN and Tylenol PRN - Advanced diet to clear liquids and advancement pending tolerance; IVF at 100 mL/hr and Zosyn therapy - Reports no bowel movement since admission but continues to pass flatus Present on Admission?: Yes (2) COPD (chronic obstructive pulmonary disease): - No acute exacerbation; utilizing PRN oxygen for comfort here but does not utilize at home - Albuterol PRN; denies need for nebulizers at this time Present on Admission?: Yes (3) Tobacco use disorder: - STABLE - Declines nicotine patch, ordered PRN Present on Admission?: Yes (4) DVT prophylaxis: - SCDs/Ambulation Disposition: Await pain improvement/diet advancement; 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 He does state that he feels like his bloating is making it hard to him to take deep breaths but does not feel like his breathing/COPD is bothering him. He was just moved to a clear liquid diet this AM. He states he tolerated coffee so far. Still no bowel movement. Review of Systems Constitutional: no fever and no chills Respiratory: no cough, no dyspnea and no wheezing Cardiovascular: no chest pain Gastrointestinal: + abdominal pain, + bloating and + constipation; no nausea, no vomiting and no diarrhea/loose stools Genitourinary: no dysuria Integumentary: no rash Physical Exam Constitutional: WD/WN, vitals as above Eyes: + anicteric sclerae ENMT: Ears: no hearing impairment Neck: normal visual inspection and trachea midline Respiratory: normal respiratory effort, lungs clear to auscultation Cardiovascular: RRR, no murmur, no edema Gastrointestinal (Abdomen): Inspection/Auscultation: normal bowel sounds Percussion/Palpation: + abdomen tender Musculoskeletal: Head/Neck/Chest: normocephalic and head atraumatic Skin: no rashes, warm and dry Neurologic: moves all extremities Psychiatric: A+Ox3, euthymic affect Results & Data Vital Signs (Past 12 Hours) Vital Signs Temp Pulse Resp BP Pulse Ox 01/12/19 06:55 36.7 C 71 20 135/75 93 PG Care Time/CCT Total # of Minutes Spent Total Time Spent with Patient: Total time spent is greater than 50% in co ordination of care (as documented) at patient's floor/unit and/or counseling patient:
[2019-01-12] MEDS: ONDANSETRON INJ 2 MG/ML 2 ML VIAL IV PRN (19:53)
[2019-01-13] MEDS: HYDROmorphone INJ 0.5 MG/0.5 ML SYR IV PRN ×4 (00:02→20:34)
[2019-01-13] MEDS: ACETAMINOPHEN 1,000 MG/100 ML VIAL IV PRN ×2 (05:11→16:58)
[2019-01-13] MEDS: PIPERACILLIN/TAZOBACTAM 3.375 GM in DEXTROSE 5% 100 ML IV SCH ×3 (05:14→20:34)
[2019-01-13] MEDS: ONDANSETRON INJ 2 MG/ML 2 ML VIAL IV PRN (05:40)
[2019-01-13 07:00] LABS: Basophils # (auto) 0.01 K/uL (0-0.2); Basophils % (auto) 0.1 %; Eosinophils # (auto) 0.04 K/uL (0-0.5); Eosinophils % (auto) 0.3 %; Immature Granulocytes # (auto) 0.03 K/uL (0.00-0.02); Immature Granulocytes % (auto) 0.2 %; Lymphocytes # (auto) 0.64 K/uL (1.2-3.4); Lymphocytes % (auto) 4.4 %; Mean Corpuscular Hgb Conc 35.7 g/dL (32-36); Mean Corpuscular Volume 88.8 fL (80-100); Mean Platelet Volume 9.8 fL (7.4-10.4); Monocytes # (auto) 1.06 K/uL (0.11-0.59); Monocytes % (auto) 7.3 %; Neutrophils # (auto) 12.72 K/uL (1.4-6.5); Neutrophils % (auto) 87.7 %; Platelet Count 290 K/uL (130-400); RDW Coefficient of Variation 13.6 % (11.5-14.5); RDW Standard Deviation 44.5 fL (36.4-46.3); Red Blood Count 4.73 M/uL (4.7-6.1)
[2019-01-13 07:28] LABS: BUN Creatinine Ratio 12.8 (10-20); Calcium 8.3 mg/dl (8.5-10.1); Creatinine Clr Calc Pharmacy 91.1 ml/min; Est GFR (Non-African American) 107.9; Potassium 3.7 mmol/L (3.5-5.1)
[2019-01-13] MEDS: D5W AND NSS 1,000 ML IV SCH ×2 (07:50→17:19)
--- NOTE | 2019-01-13 07:53 | Surgery Progress Note ---
Date of Service January 13, 2019 Assessment & Plan (1) Diverticulitis of intestine with perforation and abscess: Patient had a CT abd/pelvis yesterday that was essentially unchanged and was started on clears. Since patient is slow to progress with minimal bowel function, associated with + nausea and emesis yesterday we suggest continuing on clear liquids today. If improves okay to advance to full liquids later today vs tomorrow. WBC is slowly downtrending. Continue to await return of meaningful bowel function. as above however he is telling me currently he is feeling better this AM. no pain currently. can have some full liquids later if he wants continue IV antibiotics. will continue to follow along. Subjective Patient states he feels similar to yesterday. He is not passing much gas and still endorses some abdominal pain/bloating. Had a bout of emesis yesterday with some nausea, managed with prn zofran. Physical Exam Constitutional: no acute distress Gastrointestinal (Abdomen): Inspection/Auscultation: + abdomen distended Percussion/Palpation: + abdomen tender (mildy tender in LLQ) and + abdomen firm Results & Data Vital Signs (Past 12 Hours) Vital Signs Temp Pulse Pulse Resp BP Pulse Ox 01/13/19 07:43 36.8 C 66 17 132/80 90 01/12/19 23:02 36.7 C 67 16 151/79 H 92 PG Care Time/CCT Total # of Minutes Spent Total Time Spent with Patient: Total time spent is greater than 50% in coordination of care (as documented) at patient's floor/unit and/or counseling patient: (1) Diverticulitis of intestine with perforation and abscess Diverticulitis bleeding: unspecified bleeding status Diverticulitis site: unspecified part of intestinal tract Qualified Code(s): K57.80 - Diverticulitis of intestine, part unspecified, with perforation and abscess without bleeding
--- NOTE | 2019-01-13 10:16 | Hospitalist Progress Note ---
Date of Service January 13, 2019 Assessment & Plan (1) Diverticulitis: - Initial CT which suggested diverticulitis with possible extraluminal gas and fluid collection in perisigmoid region; repeat CT on 01/12 with re- demonstration of findings on initial CT - Leukocytosis improving and remaining afebrile; pain improving be remains and better response with Dilaudid; Dilaudid PRN and Tylenol PRN - Advanced diet to full liquids and advancement pending tolerance; IVF at 100 mL/hr and Zosyn therapy - Reports no bowel movement since admission but continues to pass flatus - will add Colace 100 mg BID for now to help soften stool without increasing peristalsis/pain but likely if adequate BM could ultimately help with the discomfort/bloating (2) COPD (chronic obstructive pulmonary disease): - No acute exacerbation; utilizing PRN oxygen for comfort here but does not utilize at home - Albuterol PRN; denies need for nebulizers at this time (3) Tobacco use disorder: - STABLE - Declines nicotine patch, ordered PRN (4) DVT prophylaxis: - SCDs/Ambulation Disposition: Await pain improvement/diet advancement - slowly progressing; 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 Did have some nausea and emesis yesterday. Tolerating diet so far. Continues to be bloated but notes it is a little easier to breath today. Still no BM but is passing flatus. Review of Systems Constitutional: no fever and no chills Respiratory: no cough, no dyspnea and no wheezing Cardiovascular: no chest pain, no palpitations and no edema Gastrointestinal: + abdominal pain, + bloating and + constipation; no nausea, no vomiting and no diarrhea/loose stools Genitourinary: no dysuria Physical Exam Constitutional: WD/WN, vitals as above Eyes: + anicteric sclerae ENMT: Ears: no hearing impairment Neck: normal visual inspection and trachea midline Respiratory: normal respiratory effort, lungs clear to auscultation Cardiovascular: RRR, no murmur, no edema Gastrointestinal (Abdomen): Inspection/Auscultation: + abdomen distended and normal bowel sounds Percussion/Palpation: abdomen nontender Musculoskeletal: Head/Neck/Chest: normocephalic and head atraumatic Skin: no rashes, warm and dry Neurologic: moves all extremities Psychiatric: A+Ox3, euthymic affect Results & Data Vital Signs (Past 12 Hours) Vital Signs Temp Pulse Pulse Resp BP Pulse Ox 01/13/19 07:43 36.8 C 66 17 132/80 90 01/12/19 23:02 36.7 C 67 16 151/79 H 92 PG Care Time/CCT Total # of Minutes Spent Total Time Spent with Patient: Total time spent is greater than 50% in coordination of care (as documented) at patient's floor/unit and/or counseling patient:
[2019-01-13] MEDS: DOCUSATE SODIUM 100 MG CAP PO SCH ×2 (10:53→20:25)
[2019-01-14] MEDS: HYDROmorphone INJ 0.5 MG/0.5 ML SYR IV PRN ×6 (00:21→19:33)
[2019-01-14] MEDS: D5W AND NSS 1,000 ML IV SCH ×3 (03:05→21:06)
[2019-01-14] MEDS ORDERED: Nursing to Pharmacy Communication ONE (03:09)
[2019-01-14] MEDS: PIPERACILLIN/TAZOBACTAM 3.375 GM in DEXTROSE 5% 100 ML IV SCH ×3 (04:32→21:04)
[2019-01-14] MEDS: ACETAMINOPHEN 1,000 MG/100 ML VIAL IV PRN ×2 (04:57→21:59)
[2019-01-14] MEDS: DOCUSATE SODIUM 100 MG CAP PO SCH ×2 (07:35→11:57)
--- NOTE | 2019-01-14 09:35 | Surgery Progress Note ---
Date of Service January 14, 2019 Assessment & Plan (1) Diverticulitis of intestine with perforation and abscess: Patient is slow to progress with diet advancement. Will order labs to check WBC this morning and obtain a KUB to evaluate for ileus. Continue IV abx and IVF. Encourage ambulation as tolerated. as above. xray c/w ileus vs early sbo. no emesis today. no nausea currently. will back off to npo/sips. repeat kub tomorrow wbc continues to improve. his LLQ pain he presented with has resolved. main complaint now is distension and nausea. Subjective Patient states he doesn't feel much improvement from yesterday and still endors es abdominal pain. States he tried drinking some liquids yesterday,but feels nauseas when he does and endorsed vomiting x1. He is passing some loose stool, but not much gas. States he tries to ambulate in the halls after getting pain medication. Physical Exam Constitutional: no acute distress Gastrointestinal (Abdomen): Inspection/Auscultation: + abdomen distended Percussion/Palpation: + abdomen tender (in lower abdominal region) and + abdomen firm Results & Data Vital Signs (Past 12 Hours) Vital Signs Temp Pulse Pulse Resp BP Pulse Ox 01/14/19 07:29 36.5 C 63 18 148/87 H 93 01/13/19 23:25 36.7 C 74 16 124/78 91 PG Care Time/CCT Total # of Minutes Spent Total Time Spent with Patient: Total time spent is greater than 50% in coordination of care (as documented) at patient's floor/unit and/or counseling patient: (1) Diverticulitis of intestine with perforation and abscess Diverticulitis bleeding: unspecified bleeding status Diverticulitis site: unspecified part of intestinal tract Qualified Code(s): K57.80 - Diverticulitis of intestine, part unspecified, with perforation and abscess without bleeding
[2019-01-14 09:39] LABS: Basophils # (auto) 0.03 K/uL (0-0.2); Basophils % (auto) 0.2 %; Eosinophils # (auto) 0.06 K/uL (0-0.5); Eosinophils % (auto) 0.5 %; Hematocrit (blood only) 40.5 % (42-52); Immature Granulocytes # (auto) 0.05 K/uL (0.00-0.02); Immature Granulocytes % (auto) 0.4 %; Lymphocytes # (auto) 1.03 K/uL (1.2-3.4); Lymphocytes % (auto) 8.1 %; Mean Corpuscular Hgb Conc 34.6 g/dL (32-36); Mean Corpuscular Volume 89.2 fL (80-100); Mean Platelet Volume 9.2 fL (7.4-10.4); Monocytes # (auto) 0.99 K/uL (0.11-0.59); Monocytes % (auto) 7.8 %; Neutrophils # (auto) 10.55 K/uL (1.4-6.5); Platelet Count 326 K/uL (130-400); RDW Coefficient of Variation 13.6 % (11.5-14.5); RDW Standard Deviation 44.4 fL (36.4-46.3); Red Blood Count 4.54 M/uL (4.7-6.1); White Blood Count 12.71 K/uL (4.8-10.8)
[2019-01-14 10:09] LABS: BUN Creatinine Ratio 18.1 (10-20); Calcium 8.1 mg/dl (8.5-10.1); Creatinine Clr Calc Pharmacy 91.1 ml/min; Est GFR (Non-African American) 107.9; Potassium 3.7 mmol/L (3.5-5.1)
--- NOTE | 2019-01-14 10:21 | XRay Report ---
KUB CLINICAL HISTORY: Abdominal distention. COMPARISON STUDY: CT of the abdomen and pelvis January 12, 2019. FINDINGS: Oral contrast within portions of the bowel is noted. There has been interval development of small bowel dilatation. Multiple loops of mildly dilated small bowel measure up to 3.9 cm in caliber since CT of January 12, 2019. There is scattered colonic gas. IMPRESSION: Interval development of small bowel dilatation which may reflect a partial small bowel o bstruction or ileus. Electronically signed by: Messi Ruiz M.D. 01/14/2019 10:19 AM
--- NOTE | 2019-01-14 16:59 | Hospitalist Progress Note ---
Date of Service January 14, 2019 Assessment & Plan (1) Diverticulitis: - Initial CT which suggested diverticulitis with possible extraluminal gas and fluid collection in perisigmoid region; repeat CT on 01/12 with re- demonstration of findings on initial CT - Leukocytosis improving and remaining afebrile; pain level remaining relatively the same at this point but does improve with Dilaudid - KUB suggestive of developing obstruction vs ileus and another repeat KUB placed for AM and diet reduced to clears - Diet reduced to clears; IVF at 100 mL/hr and Zosyn therapy - Reports no significant bowel movement since admission but continues to pass flatus - Gen Surg following - appreciate assistance (2) COPD (chronic obstructive pulmonary disease): - No acute exacerbation; utilizing PRN oxygen for comfort here but does not utilize at home - Albuterol PRN; denies need for nebulizers at this time (3) Tobacco use disorder: - STABLE - Declines nicotine patch, ordered PRN (4) DVT prophylaxis: - SCDs/Ambulation Disposition: Await pain improvement/diet advancement - slowly progressing; 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 Continues with ongoing pain and nausea with some emesis. XR supporting ileus or development of obstruction. Diet red uced to clears. Had a very small liquid BM today. Review of Systems Constitutional: no fever and no chills Respiratory: + cough (chronic - intermittent); no dyspnea Cardiovascular: no chest pain and no edema Gastrointestinal: + abdominal pain, + bloating, + constipation and + diarrhea/loose stools (very minimal); no nausea and no vomiting Genitourinary: no dysuria Integumentary: no rash Physical Exam 2 Constitutional: WD/WN, vitals as above Eyes: + anicteric sclerae ENMT: Ears: no hearing impairment Neck: normal visual inspection and trachea midline Respiratory: normal respiratory effort, lungs clear to auscultation Auscultation: lungs clear to auscultation bilaterally and + diminished lung sounds Cardiovascular: RRR, no murmur, no edema Gastrointestinal (Abdomen): Inspection/Auscultation: + abdomen distended and normal bowel sounds Percussion/Palpation: + abdomen tender Musculoskeletal: Head/Neck/Chest: normocephalic and head atraumatic Skin: no rashes, warm and dry Neurologic: moves all extremities Psychiatric: A+Ox3, euthymic affect Results & Data Vital Signs (Past 12 Hours) Vital Signs Temp Pulse Resp BP Pulse Ox 01/14/19 15:10 94 01/14/19 15:09 37.1 C 62 16 152/87 H 87 L 01/14/19 07:29 36.5 C 63 18 148/87 H 93 PG Care Time/CCT Total # of Minutes Spent Total Time Spent with Patient: Total time spent is greater than 50% in coordination of care (as documented) at patient's floor/unit and/or counseling patient:
[2019-01-15] MEDS: HYDROmorphone INJ 0.5 MG/0.5 ML SYR IV PRN ×8 (00:08→23:24)
[2019-01-15] MEDS: ONDANSETRON INJ 2 MG/ML 2 ML VIAL IV PRN (00:10)
[2019-01-15] MEDS: PIPERACILLIN/TAZOBACTAM 3.375 GM in DEXTROSE 5% 100 ML IV SCH ×3 (04:21→20:34)
--- NOTE | 2019-01-15 07:22 | XRay Report ---
KUB HISTORY: evaluate for ileus COMPARISON: KUB 01/14/2019. FINDINGS: Slight progression of the dilated loops of small bowel seen throughout the abdomen. These m easure up to 4.5 cm in diameter, previously measuring up to 3.9 cm. There is some gas located within the colon. No renal calculi. No ureteral calculi. No pneumoperitoneum or pneumatosis. IMPRESSION: Slight progression of the gas-filled dilated loops of small bowel within the abdomen. This may repres ent a partial small bowel obstruction. Electronically signed by: Jj Pitts M.D. 01/15/2019 7:21 AM
[2019-01-15] MEDS: D5W AND NSS 1,000 ML IV SCH (07:40)
--- NOTE | 2019-01-15 07:41 | Surgery Progress Note ---
Date of Service January 15, 2019 Assessment & Plan (1) Diverticulitis of intestine with perforation and abscess: XR with similar SB distention, ileus labs pending keep on sips as above. more emesis past 24 hours and xray slightly worse. still very distended but nontender. will place NGT and make NPO consult pharmacy for PPN/TPN [facility] surgeons covering for weekend. Subjective liquid BM, no flatus, no vomiting, not much po, overall feels about the same Physical Exam Gastrointestinal (Abdomen): Inspection/Auscultation: + abdomen distended Percussion/Palpation: + abdomen tender (less) Results & Data Vital Signs (Past 12 Hours) Vital Signs Temp Pulse Resp BP Pulse Ox 01/14/19 22:44 36.6 C 56 L 16 148/85 H 96 PG Care Time/CCT Total # of Minutes Spent Total Time Spent with Patient: Total time spent is greater than 50% in coordination of care (as documented) at patient's floor/unit and/or counseling patient: (1) Diverticulitis of intestine with perforation and abscess Diverticulitis bleeding: unspecified bleeding status Diverticulitis site: unspecified part of intestinal tract Qualified Code(s): K57.80 - Diverticulitis of intestine, part unspecified, with perforation and abscess without bleeding
[2019-01-15 08:05] LABS: Basophils # (auto) 0.04 K/uL (0-0.2); Basophils % (auto) 0.3 %; Eosinophils # (auto) 0.16 K/uL (0-0.5); Eosinophils % (auto) 1.4 %; Hematocrit (blood only) 38.3 % (42-52); Hemoglobin 13.4 g/dL (14.0-18.0); Immature Granulocytes # (auto) 0.03 K/uL (0.00-0.02); Immature Granulocytes % (auto) 0.3 %; Lymphocytes # (auto) 1.24 K/uL (1.2-3.4); Lymphocytes % (auto) 10.6 %; Mean Corpuscular Volume 89.3 fL (80-100); Mean Platelet Volume 8.7 fL (7.4-10.4); Monocytes # (auto) 0.99 K/uL (0.11-0.59); Monocytes % (auto) 8.4 %; Neutrophils # (auto) 9.28 K/uL (1.4-6.5); Platelet Count 362 K/uL (130-400); RDW Coefficient of Variation 13.7 % (11.5-14.5); RDW Standard Deviation 44.9 fL (36.4-46.3); Red Blood Count 4.29 M/uL (4.7-6.1); White Blood Count 11.74 K/uL (4.8-10.8)
[2019-01-15 08:22] LABS: Calcium 8.1 mg/dl (8.5-10.1); Creatinine Clr Calc Pharmacy 80.8 ml/min; Est GFR (Non-African American) 102.7; Potassium 3.7 mmol/L (3.5-5.1)
[2019-01-15] MEDS ORDERED: TPN/PPN CONSULT PHARMACY PRN (08:30)
--- NOTE | 2019-01-15 09:05 | XRay Report ---
XR chest 1V portable CLINICAL HISTORY: Check for NG tube placement COMPARISON STUDY: 11/11/2015 FINDINGS: The cardiac and mediastinal contours are normal. There are bibasilar airspace opacities. Th ere is a nasogastric tube in stomach.[There are no significant pleural effusions. Upper lobe emphysem a is suspected. IMPRESSION: 1. Nasogastric tube in stomach 2. Bilateral lower lung zone airspace opacities Electronically signed by: David Whitehead M.D. 01/15/2019 9:04 AM
[2019-01-15 09:22] LABS: Magnesium 2.2 mg/dl (1.8-2.4); Phosphorus 3.1 mg/dl (2.5-4.9)
[2019-01-15] MEDS ORDERED: DEXTROSE 10% 1,000 ML IV SCH ×3 (11:45→12:00)
[2019-01-15] MEDS ORDERED: SODIUM CHLORIDE 0.9% 200 ML IV SCH (12:30)
--- NOTE | 2019-01-15 15:57 | Pharmacy Report ---
Pharmacy PN Initial Consult - Date of Service January 15, 2019 - Scope Pharmacy has been consulted to manage parenteral nutrition orders and order appropriate labs. As part of the Nutrition Support Team guidelines, pharmacy will work in conjunction with dietary when determining the patients caloric needs. - Subjective The patient is a 58 year old M admitted on 01/09/19 16:01 for DIVERTICULITIS. Patient is to receive parenteral nutrition for possible ileus, possible SBO. Patient has diverticulitis of intestine with perforation and abscess - Objective Height: 5 ft 7 in Weight: 51 kg Diet: NPO Vascular Access:: Peripheral Intake & Output (Last 24Hrs): Intake & Output 01/13/19 01/14/19 01/15/19 01/16/19 06:59 06:59 06:59 06:59 Intake Total 3138.333 / 3138.333 3740.000 / 3740.000 2596.666 / 2596.666 1765 / 1765 Output Total 1025 / 1025 275 / 275 300 / 300 Balance 2113.333 / 2113.333 3740.000 / 3740.000 2321.666 / 2321.666 1465 / 1465 Weight 51 kg 51 kg 51 kg Laboratory Data (Last 24 Hrs):: 01/15/19 01/15/19 07:53 07:53 Sodium 141 Potassium 3.7 Chloride 105 Carbon Dioxide 31 BUN 11 Creatinine 0.71 Glucose 126 H Calcium 8.1 L Phosphorus 3.1 Magnesium 2.2 Triglycerides 99 Nutrition Assessment:: Please refer to the Notes section of the EMR for the most recent graduate studies dean note. - Plan For day 1 of PN administration, the following will be ordered: Macronutrients Amino acids 60 grams/day Dextrose 75 grams/day Lipids 50 grams/day Micronutrients Combined electrolytes 20 mL - contains 35 mEq Na, 20 meq K, 4.5 mEq Ca, 5 mEq Mg, 35 mEq Cl, 29.5 mEq acetate per 20 mL Potassium phosphate 21 mMol Multivitamins 10 mL Trace Elements 10 mL Total volume 1500 mL to be infused over 24 hrs will provide 995 kcal/day Final osmolarity 762 mOsm/L (maximum for PPN is 900 mOsm/L) Labs to be ordered per PN order protocol Pharmacy will follow and adjust parenteral nutrition orders on a daily basis. Thank you.
[2019-01-15] MEDS ORDERED: CUSTOM PERIPHERAL PN IV SCH (16:00)
[2019-01-15] MEDS ORDERED: Nursing to Pharmacy Communication ONE ×2 (16:06→20:31)
[2019-01-15] MEDS ORDERED: SODIUM CHLORIDE 0.9% 1000ML IV SCH (16:30)
--- NOTE | 2019-01-15 17:21 | Hospitalist Progress Note ---
Date of Service January 15, 2019 Assessment & Plan (1) Diverticulitis: - Initial CT which suggested diverticulitis with possible extraluminal gas and fluid collection in perisigmoid region; repeat CT on 01/12 with re- demonstration of findings on initial CT - Leukocytosis improving and remaining afebrile; pain level remaining relatively the same at this point but does improve with Dilaudid - KUB suggestive of developing obstruction vs ileus and another repeat KUB this AM shows slight progression -- Given nausea/vomiting an NGT was placed to intermittent suction; given duration of limited oral intake TPN was initiated - appreciate dietary/pharmacy assistance -Continue Zosyn therapy - Reports no significant bowel movement since admission and at time of assessment states he hasn't passed gas through the day - Gen Surg following - appreciate assistance (2) COPD (chronic obstructive pulmonary disease): - No acute exacerbation; utilizing PRN oxygen for comfort here but does not utilize at home - Albuterol PRN; denies need for nebulizers at this time (3) Tobacco use disorder: - STABLE - Declines nicotine patch, ordered PRN (4) DVT prophylaxis: - SCDs/Ambulation Disposition: Await pain improvement/diet advancement - slowly progressing and now with SBO/ileus and suspect prolonged hospitalization; 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 An NGT was placed and TPN initiated. Some dark bile material is being removed by NGT but abdomen remains bloated and firm at this time however patient does look slightly more comfortable. He continues to have pain mostly from his abdomen being distended that is making his breathing more difficult. States his breathing feels normal at rest. Review of Systems Constitutional: no fever and no chills Ear, Nose, Mouth, Throat: no sore throat Respiratory: + cough (chronic - intermittent); no dyspnea Cardiovascular: no chest pain, no palpitations, no lightheadedness and no edema Gastrointestinal: + abdominal pain, + bloating, + nausea, + constipation and + diarrhea/loose stools (very minimal); no vomiting Genitourinary: no dysuria Physical Exam Constitutional: WD/WN, vitals as above Eyes: + anicteric sclerae ENMT: Ears: no hearing impairment Neck: normal visual inspection and trachea midline Respiratory: normal respiratory effort, lungs clear to auscultation Auscultation: + diminished lung sounds Cardiovascular: RRR, no murmur, no edema Gastrointestinal (Abdomen): Inspection/Auscultation: + abdomen distended; + abnormal bowel sounds (hypoactive) Percussion/Palpation: + abdomen tender and + abdomen firm Musculoskeletal: Head/Neck/Chest: normocephalic and head atraumatic Skin: no rashes, warm and dry Neurologic: moves all extremities Psychiatric: A+Ox3, euthymic affect Results & Data Vital Signs (Past 12 Hours) Vital Signs Temp Pulse Pulse Resp BP Pulse Ox 01/15/19 15:18 37.0 C 60 16 148/88 H 92 01/15/19 07:55 36.8 C 60 20 152/74 H 95 PG Care Time/CCT Total # of Minutes Spent Total Time Spent with Patient: Total time spent is greater than 50% in coordination of care (as documented) at patient's floor/unit and/or counseling patient:
[2019-01-15] MEDS: ALBUTEROL HFA 8 GM INHALER INH PRN (19:41)
[2019-01-16] MEDS: ACETAMINOPHEN 1,000 MG/100 ML VIAL IV PRN (00:36)
[2019-01-16] MEDS ORDERED: Nursing to Pharmacy Communication ONE ×3 (00:47→08:55)
[2019-01-16] MEDS ORDERED: SODIUM CHLORIDE 0.9% 1000ML 1,000 ML IV SCH (01:45)
[2019-01-16] MEDS: HYDROmorphone INJ 0.5 MG/0.5 ML SYR IV PRN ×2 (04:02→15:51)
[2019-01-16] MEDS: PIPERACILLIN/TAZOBACTAM 3.375 GM in DEXTROSE 5% 100 ML IV SCH ×3 (04:07→20:57)
[2019-01-16] MEDS ORDERED: SODIUM CHLORIDE 0.9% 200 ML IV SCH (04:30)
[2019-01-16 07:21] LABS: Basophils # (auto) 0.06 K/uL (0-0.2); Basophils % (auto) 0.5 %; Eosinophils # (auto) 0.29 K/uL (0-0.5); Eosinophils % (auto) 2.2 %; Hematocrit (blood only) 38.7 % (42-52); Hemoglobin 13.2 g/dL (14.0-18.0); Immature Granulocytes # (auto) 0.02 K/uL (0.00-0.02); Immature Granulocytes % (auto) 0.2 %; Lymphocytes # (auto) 1.47 K/uL (1.2-3.4); Lymphocytes % (auto) 11.4 %; Mean Corpuscular Hgb Conc 34.1 g/dL (32-36); Mean Corpuscular Volume 89.6 fL (80-100); Mean Platelet Volume 8.6 fL (7.4-10.4); Monocytes # (auto) 1.21 K/uL (0.11-0.59); Monocytes % (auto) 9.3 %; Neutrophils % (auto) 76.4 %; Platelet Count 379 K/uL (130-400); RDW Coefficient of Variation 13.7 % (11.5-14.5); RDW Standard Deviation 45.3 fL (36.4-46.3); Red Blood Count 4.32 M/uL (4.7-6.1); White Blood Count 12.95 K/uL (4.8-10.8)
--- NOTE | 2019-01-16 07:51 | Surgery Progress Note ---
Date of Service January 16, 2019 Assessment & Plan (1) Diverticulitis of intestine with perforation and abscess: 950 cc bilious output from NGT ileus without signifcant progress TPN ambulate check KYB/labs in AM Present on Admission?: Yes Subjective Minimal flatus not ambulating well no pain Review of Systems Constitutional: no fever and no chills Respiratory: + dyspnea on exertion; no cough and no chest congestion Cardiovascular: no chest pain Gastrointestinal: + abdominal pain (minimal) and + bloating; no nausea and no vomiting Musculoskeletal: no back pain Integumentary: no rash Physical Exam Constitutional: no acute distress Neck: trachea midline Respiratory: normal respiratory effort, lungs clear to auscultation no respiratory distress and no labored breathing Cardiovascular: RRR, no murmur, no edema Gastrointestinal (Abdomen): Inspection/Auscultation: abdomen normal to inspection, + abdomen distended and normal bowel sounds Percussion/Palpation: abdomen nontender and no hernia Musculoskeletal: Head/Neck/Chest: normocephalic and head atraumatic Skin: no rashes, warm and dry Neurologic: moves all extremities Results & Data Vital Signs (Past 12 Hours) Vital Signs Temp Pulse Pulse Resp BP Pulse Ox 01/16/19 07:15 36.7 C 61 16 141/72 H 94 01/15/19 23:12 37.2 C 69 18 138/75 92 01/15/19 20:26 93 01/15/19 19:46 93 (1) Diverticulitis of intestine with perforation and abscess Diverticulitis bleeding: unspecified bleeding status Diverticulitis site: unspecified part of intestinal tract Qualified Code(s): K57.80 - Diverticulitis of intestine, part unspecified, with perforation and abscess without bleeding
[2019-01-16 07:54] LABS: BUN Creatinine Ratio 19.4 (10-20); Calcium 8.3 mg/dl (8.5-10.1); Creatinine Clr Calc Pharmacy 100.7 ml/min; Est GFR (African American) 124.2; Est GFR (Non-African American) 107.2; Magnesium 2.2 mg/dl (1.8-2.4); Phosphorus 3.1 mg/dl (2.5-4.9); Potassium 3.6 mmol/L (3.5-5.1)
--- NOTE | 2019-01-16 09:16 | Hospitalist Progress Note ---
Date of Service January 16, 2019 Assessment & Plan (1) Diverticulitis: - Initial CT which suggested diverticulitis with possible extraluminal gas and fluid collection in perisigmoid region; repeat CT on 01/12 with re- demonstration of findings on initial CT - Leukocytosis slightly increased on AM labs but remaining afebrile; continue pain regimen and encourage ambulation - KUB suggestive of developing obstruction vs ileus - KUB ordered for today -- NGT remains and removing dark bile material; given duration of limited oral intake TPN was initiated - appreciate dietary/pharmacy assistance - Continue Zosyn therapy - Gen Surg following - appreciate assistance (2) COPD (chronic obstructive pulmonary disease): - No acute exacerbation; utilizing PRN oxygen for comfort here but does not utilize at home - Albuterol PRN; denies need for nebulizers at this time (3) Tobacco use disorder: - STABLE - Declines nicotine patch, ordered PRN (4) DVT prophylaxis: - SCDs/Ambulation Disposition: Await pain improvement/diet advancement - slowly progressing and now with SBO/ileus and suspect prolonged hospitalization; 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 Anticipates walking around and hopes to have that removed soon if possible. Minimal flatus. Abdomen remains firm and distended. Reports his breathing remains at baseline. Verbalizes no new needs Review of Systems Constitutional: no fever and no chills Ear, Nose, Mouth, Throat: + sore throat Respiratory: + cough (chronic - intermittent); no dyspnea Cardiovascular: no chest pain, no palpitations and no edema Gastrointestinal: + abdominal pain, + bloating and + constipation; no nausea and no vomiting Genitourinary: no dysuria Physical Exam Constitutional: WD/WN, vitals as above Eyes: + anicteric sclerae ENMT: Ears: no hearing impairment NGT placed in L nare Neck: normal visual inspection and trachea midline Respiratory: normal respiratory effort Auscultation: + diminished lung sounds and + crackles (minimal in bases b/l) Cardiovascular: RRR, no murmur, no edema Gastrointestinal (Abdomen): Inspection/Auscultation: + abdomen distended; + a bnormal bowel sounds (hypoactive) Percussion/Palpation: + abdomen tender and + abdomen firm Musculoskeletal: Head/Neck/Chest: normocephalic and head atraumatic Skin: no rashes, warm and dry Neurologic: moves all extremities Psychiatric: A+Ox3, euthymic affect Results & Data Vital Signs (Past 12 Hours) Vital Signs Temp Pulse Pulse Resp BP Pulse Ox 01/16/19 07:15 36.7 C 61 16 141/72 H 94 01/15/19 23:12 37.2 C 69 18 138/75 92 PG Care Time/CCT Total # of Minutes Spent Total Time Spent with Patient: Total time spent is greater than 50% in coordination of care (as documented) at patient's floor/unit and/or counseling patient:
[2019-01-16] MEDS ORDERED: CHLORASEPTIC 1.4% SOLN 180 ML BTL MT PRN (09:17)
[2019-01-16] MEDS ORDERED: SODIUM CHLORIDE 0.9% 300 ML IV SCH (10:15)
[2019-01-16] MEDS ORDERED: CUSTOM PERIPHERAL PN IV SCH (16:00)
[2019-01-16] MEDS: ONDANSETRON INJ 2 MG/ML 2 ML VIAL IV PRN (17:34)
[2019-01-16] MEDS: SUCRALFATE 1 GM/10 ML UDC PO PRN ×2 (22:21→22:34)
[2019-01-17] MEDS: HYDROmorphone INJ 0.5 MG/0.5 ML SYR IV PRN ×4 (01:21→20:41)
[2019-01-17] MEDS: PIPERACILLIN/TAZOBACTAM 3.375 GM in DEXTROSE 5% 100 ML IV SCH ×3 (05:07→20:31)
[2019-01-17] MEDS: SUCRALFATE 1 GM/10 ML UDC PO PRN ×4 (07:10→19:42)
[2019-01-17 07:20] LABS: Basophils # (auto) 0.04 K/uL (0-0.2); Basophils % (auto) 0.2 %; Eosinophils # (auto) 0.15 K/uL (0-0.5); Eosinophils % (auto) 0.9 %; Hematocrit (blood only) 40.6 % (42-52); Hemoglobin 14.3 g/dL (14.0-18.0); Immature Granulocytes # (auto) 0.06 K/uL (0.00-0.02); Immature Granulocytes % (auto) 0.4 %; Lymphocytes # (auto) 0.93 K/uL (1.2-3.4); Lymphocytes % (auto) 5.8 %; Mean Corpuscular Hgb Conc 35.2 g/dL (32-36); Mean Corpuscular Volume 88.6 fL (80-100); Mean Platelet Volume 8.7 fL (7.4-10.4); Monocytes # (auto) 1.24 K/uL (0.11-0.59); Monocytes % (auto) 7.7 %; Neutrophils # (auto) 13.72 K/uL (1.4-6.5); Platelet Count 415 K/uL (130-400); RDW Coefficient of Variation 13.7 % (11.5-14.5); RDW Standard Deviation 44.4 fL (36.4-46.3); Red Blood Count 4.58 M/uL (4.7-6.1); White Blood Count 16.14 K/uL (4.8-10.8)
--- NOTE | 2019-01-17 07:44 | XRay Report ---
KUB HISTORY: Follow up study in a patient with abdominal distention and ileus KUB 01/15/2019 COMPARISON: None. FINDINGS: Enteric tube distal tip projects over the abdominal left upper quadrant within the expected location of the mid gastric lumen. Air-filled loops of small and large bowel are redemonstrated with distended small bowel loops measuring up to approximate 4.2 cm, previously 4.4 cm. No pneumatosis or pneumoperitoneum. No definite urolith. Bones appear grossly intact.. There is no organomegaly. No r enal calculi. No ureteral calculi. No pneumoperitoneum or pneumatosis. No fracture. IMPRESSION: 1. Small and large bowel gaseous distention is suggestive of ileus with partial obstruction considere d less likely. Continued follow-up recommended. 2. Enteric tube distal tip projects over the expected location of the mid gastric lumen. 3. No pneumoperitoneum. Electronically signed by: Dustin Ferris M.D. 01/17/2019 7:42 AM
[2019-01-17 07:59] LABS: BUN Creatinine Ratio 27.7 (10-20); Calcium 8.7 mg/dl (8.5-10.1); Creatinine Clr Calc Pharmacy 90.2 ml/min; Est GFR (African American) 121.9; Est GFR (Non-African American) 105.2; Magnesium 2.4 mg/dl (1.8-2.4); Phosphorus 3.5 mg/dl (2.5-4.9); Potassium 3.5 mmol/L (3.5-5.1)
--- NOTE | 2019-01-17 08:19 | Surgery Progress Note ---
Date of Service January 17, 2019 Assessment & Plan (1) Diverticulitis of intestine with perforation and abscess: passing more flatus KUB still concerning no pain and hungry WBC elevated ambulate TPN hopefully will resolve without exploration, would leave tube in until at least tomorrow Present on Admission?: Yes Subjective passing more flatus this AM NGT still withbilious output no pain Review of Systems Constitutional: no fever and no chills hungry Respiratory: no cough and no dyspnea Cardiovascular: no chest pain and no dyspnea Gastrointestinal: no abdominal pain, no nausea and no vomiting Genitourinary: no dysuria Neurologic: + generalized weakness Physical Exam Constitutional: WD/WN, vitals as above Neck: trachea midline Respiratory: normal respiratory effort, lungs clear to auscultation Cardiovascular: RRR, no murmur, no edema Gastrointestinal (Abdomen): Inspection/Auscultation: + abdomen distended and normal bowel sounds Percussion/Palpation: abdomen nontender Musculoskeletal: Head/Neck/Chest: normocephalic and head atraumatic Skin: no rashes, warm and dry Psychiatric: Orientation: alert and oriented x 3 Results & Data Vital Signs (Past 12 Hours) Vital Signs Temp Pulse Pulse Resp BP Pulse Ox 01/17/19 07:36 37.1 C 73 18 151/84 H 91 01/16/19 23:45 37.4 C 75 18 149/77 H 96 Diagnostic Findings KUB HISTORY: Follow up study in a patient with abdominal distention and ileus KUB 01/15/2019 COMPARISON: None. FINDINGS: Enteric tube distal tip projects over the abdominal left upper quadrant within the expected location of the mid gastric lumen. Air-filled loops of small and large bowel are redemonstrated with distended small bowel loops measuring up to approximate 4.2 cm, previously 4.4 cm. No pneumatosis or pneumoperitoneum. No definite urolith. Bones appear grossly intact.. There is no organomegaly. No renal calculi. No ureteral calculi. No pneumoperitoneum or pneumatosis. No fracture. IMPRESSION: 1. Small and large bowel gaseous distention is suggestive of ileus with partial obstruction considered less likely. Continued follow-up recommended. 2. Enteric tube distal tip projects over the expected location of the mid gastric lumen. 3. No pneumoperitoneum. (1) Diverticulitis of intestine with perforation and abscess Diverticulitis bleeding: unspecified bleeding status Diverticulitis site: unspecified part of intestinal tract Qualified Code(s): K57.80 - Diverticulitis of intestine, part unspecified, with perforation and abscess without bleeding
--- NOTE | 2019-01-17 15:58 | Hospitalist Progress Note ---
Date of Service January 17, 2019 Assessment & Plan (1) Diverticulitis: - Initial CT which suggested diverticulitis with possible extraluminal gas and fluid collection in perisigmoid region; repeat CT on 01/12 with re- demonstration of findings on initial CT - Leukocytosis up to 16k, no fever or chills, vitals stable - KUB suggestive of developing obstruction vs ileus - KUB ordered for today -- NGT remains and removing dark bile material; given duration of limited oral intake TPN was initiated - appreciate dietary/pharmacy assistance - Continue Zosyn therapy - Gen Surg following - appreciate assistance hoping to avoid surgery, Dr. Ogden will be back tomorrow for recommendations his abdomen is soft, minimally distended, some bowel sounds and a bowel movement today discussed with patient and family that he will likely be here at least a few more days, more if surgery is required (2) COPD (chronic obstructive pulmonary disease): - No acute exacerbation; utilizing PRN oxygen for comfort here but does not utilize at home - Albuterol PRN; denies need for nebulizers at this time (3) Tobacco use disorder: - STABLE - Declines nicotine patch, ordered PRN (4) DVT prophylaxis: - SCDs/Ambulation Disposition: Await pain improvement/diet advancement - slowly progressing and now with SBO/ileus and suspect prolonged hospitalization; 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 Cole, will continue NGT, trying to avoid ex lap updated at the bedside reviewed labs, WBC up to 16k Cr stable at 0.67 and electrolytes stable Review of Systems Review of Systems: All systems reviewed & are unremarkable except as noted in HPI & below Constitutional: + fatigue and + weakness; no fever, no chills and no sweats Respiratory: no cough and no dyspnea Cardiovascular: no chest pain Gastrointestinal: + abdominal pain (LLQ) and + diarrhea/loose stools; no nausea, no vomiting, no constipation, no blood in stools and no melena Physical Exam Constitutional: WD/WN, vitals as above + thin Eyes: PERRL, conjunctivae normal, anicteric sclerae ENMT: external ear and nose normal, oropharynx normal Neck: trachea midline, no thyromegaly Respiratory: normal respiratory effort, lungs clear to auscultation Cardiovascular: RRR, no murmur, no edema Gastrointestinal (Abdomen): Inspection/Auscultation: + abdomen distended (slightly) and + hypoactive bowel sounds Percussion/Palpation: + abdomen tender (LLQ), abdomen soft and normal to percussion; abdomen not rigid Musculoskeletal: no cyanosis or clubbing, extremities motor strength 5/5 Skin: no rashes, warm and dry Neurologic: patellar DTR's 2+ bilat, sensation intact and PERRL, EOMI, accommodation nl, no face palsy, no dysarthria Psychiatric: A+Ox3, euthymic affect Lymphatic: no cervical or axillary lymphadenopathy Results & Data Vital Signs (Past 12 Hours) Vital Signs Temp Pulse Pulse Resp BP Pulse Ox 01/17/19 15:41 71 18 91 01/17/19 15:26 36.9 C 70 16 151/80 H 90 01/17/19 07:36 37.1 C 73 18 151/84 H 91 Laboratory Results Laboratory Results - last 24 hr 01/16/19 01/17/19 01/17/19 23:49 05:33 07:06 WBC 16.14 H RBC 4.58 L Hgb 14.3 Hct 40.6 L MCV 88.6 MCH 31.2 MCHC 35.2 RDW Std Deviation 44.4 RDW Coeff of [place] 13.7 Plt Count 415 H MPV 8.7 Immature Gran % (Auto) 0.4 Neut % (Auto) 85.0 Lymph % (Auto) 5.8 [place] % (Auto) 7.7 Eos % (Auto) 0.9 Baso % (Auto) 0.2 Immature Gran # (Auto) 0.06 H Neut # (Auto) 13.72 H Lymph # (Auto) 0.93 L [place] # (Auto) 1.24 H Eos # (Auto) 0.15 Baso # (Auto) 0.04 Sodium Potassium Chloride Carbon Dioxide Anion Gap BUN Creatinine Est Cr Clr Drug Dosing Est GFR ( Amer) Est GFR (Non-Af Amer) BUN/Creatinine Ratio Glucose POC Glucose 104 H 108 H Calcium Phosphorus Magnesium 01/17/19 01/17/19 07:06 12:01 WBC RBC Hgb Hct MCV MCH MCHC RDW Std Deviation RDW Coeff of [place] Plt Count MPV Immature Gran % (Auto) Neut % (Auto) Lymph % (Auto) [place] % (Auto) Eos % (Auto) Baso % (Auto) Immature Gran # (Auto) Neut # (Auto) Lymph # (Auto) [place] # (Auto) Eos # (Auto) Baso # (Auto) Sodium 138 Potassium 3.5 Chloride 98 Carbon Dioxide 35 H Anion Gap 5.0 BUN 19 H D Creatinine 0.67 Est Cr Clr Drug Dosing 90.2 Est GFR ( Amer) 121.9 Est GFR (Non-Af Amer) 105.2 BUN/Creatinine Ratio 27.7 H Glucose 120 H POC Glucose 136 H Calcium 8.7 Phosphorus 3.5 Magnesium 2.4 Diagnostic Findings KUB on 01/17 IMPRESSION: 1. Small and large bowel gaseous distention is suggestive of ileus with partial obstruction considered less likely. Continued follow-up recommended. 2. Enteric tube distal tip projects over the expected location of the mid gastric lumen. 3. No pneumoperitoneum. Medications Administered Current Inpatient Medications Acetaminophen (Tylenol) 650 mg PO Q4H PRN PRN Reason: pain/fever Stop: 02/08/19 16:49 Albuterol (Ventolin Hfa) 2 puffs INH QID PRN; Protocol PRN Reason: COPD Stop: 02/08/19 16:59 Last Admin: 01/15/19 19:41 Dose: 2 puffs Documented by: Hydromorphone HCl (Dilaudid) 0.5 mg IV Q2H PRN PRN Reason: Pain Stop: 01/24/19 09:18 Last Admin: 01/17/19 11:34 Dose: 0.5 mg Documented by: Piperacillin Sod/Tazobactam (Sod 3.375 gm/ Dextrose) 115 mls @ 28.75 mls/hr IV Q8H [facility]; Protocol Stop: 01/19/19 20:59 Last Infusion: 01/17/19 14:24 Dose: 28.8 mls/hr Documented by: Acetaminophen (Ofirmev) 1,000 mg in 100 mls @ 400 mls/hr IV Q8H PRN PRN Reason: Pain Stop: 02/09/19 09:18 Last Infusion: 01/16/19 00:51 Dose: Infused Documented by: Dextrose (D10w) 1,000 mls @ 0 mls/hr IV .Q0M [facility]ANELLE Stop: 02/14/19 11:59 Magnesium Hydroxide (Milk Of Magnesia) 30 ml PO Q6H PRN PRN Reason: Constipation Stop: 02/08/19 16:49 Last Admin: 01/12/19 21:34 Dose: 30 ml Documented by: Miscellaneous (Remove Nicoderm Patch) 1 ea N/A HS SHANELLE Stop: 02/08/19 20:59 Last Admin: 01/16/19 21:12 Dose: Not Given Documented by: Miscellaneous Information (Consult) 1 ea N/A UD PRN PRN Reason: Consult Stop: 02/08/19 15:34 Last Admin: 01/09/19 16:02 Dose: 1 ea Documented by: Miscellaneous Information (Pharmacy Tpn/Ppn Consult Active) 1 ea N/A UD PRN PRN Reason: Consult Stop: 02/14/19 08:29 Nicotine (Nicoderm Cq) 21 mg TD QAM PRN PRN Reason: nicotine withdrawal Stop: 02/08/19 17:14 Nutrition (Parenteral) (Custom Peripheral Pn) 1 bag IV TODAY@1600 SHANELLE; Protocol Stop: 01/17/19 15:59 Last Admin: 01/16/19 16:45 Dose: 1 bag Documented by: Nutrition (Parenteral) (Custom Peripheral Pn) 1 bag IV TODAY@1600 SHANELLE; Protocol Stop: 01/18/19 15:59 Ondansetron HCl (Zofran) 4 mg IV Q6H PRN PRN Reason: Nausea Stop: 02/08/19 16:49 Last Admin: 01/16/19 17:34 Dose: 4 mg Documented by: Phenol (Chloraseptic 1.4% [place]) 4 sprays MT Q1H PRN PRN Reason: Sore Throat Stop: 02/15/19 09:16 Sucralfate (Carafate) 1 gm PO QID PRN PRN Reason: gerd Stop: 02/16/19 08:59 Last Admin: 01/17/19 13:52 Dose: 1 gm Documented by: PG Care Time/CCT Total # of Minutes Spent Total Time Spent with Patient: Total time spent is greater than 50% in coordination of care (as documented) at patient's floor/unit and/or counseling patient:
[2019-01-17] MEDS ORDERED: CUSTOM PERIPHERAL PN IV SCH (16:00)
[2019-01-17] MEDS: ALBUTEROL HFA 8 GM INHALER INH PRN (20:10)
[2019-01-17] MEDS: ONDANSETRON INJ 2 MG/ML 2 ML VIAL IV PRN (20:48)
[2019-01-18] MEDS: HYDROmorphone INJ 0.5 MG/0.5 ML SYR IV PRN ×3 (04:15→20:48)
[2019-01-18] MEDS: PIPERACILLIN/TAZOBACTAM 3.375 GM in DEXTROSE 5% 100 ML IV SCH ×3 (04:50→21:49)
[2019-01-18] MEDS: SUCRALFATE 1 GM/10 ML UDC PO PRN ×2 (06:06→13:46)
[2019-01-18 08:28] LABS: Basophils # (auto) 0.04 K/uL (0-0.2); Basophils % (auto) 0.2 %; Eosinophils # (auto) 0.06 K/uL (0-0.5); Eosinophils % (auto) 0.3 %; Hematocrit (blood only) 41.1 % (42-52); Immature Granulocytes # (auto) 0.07 K/uL (0.00-0.02); Immature Granulocytes % (auto) 0.4 %; Mean Corpuscular Hgb Conc 34.1 g/dL (32-36); Mean Corpuscular Volume 90.1 fL (80-100); Mean Platelet Volume 8.9 fL (7.4-10.4); Monocytes # (auto) 1.16 K/uL (0.11-0.59); Monocytes % (auto) 6.4 %; Neutrophils # (auto) 15.82 K/uL (1.4-6.5); Neutrophils % (auto) 87.7 %; Platelet Count 421 K/uL (130-400); Red Blood Count 4.56 M/uL (4.7-6.1); White Blood Count 18.05 K/uL (4.8-10.8)
--- NOTE | 2019-01-18 08:41 | Surgery Progress Note ---
Date of Service January 18, 2019 Assessment & Plan (1) Diverticulitis of intestine with perforation and abscess: clinically doing better hopefully bowel fx returning will recheck KUB. if improved could consider NGT clamp trial diverticulitis clinically better. will need to monitor WBC and temp curve. Subjective feeling better this AM. +large/loose BM overnight. less distended. denies pain or nausea. Physical Exam Physical Exam: alert. NAD abd: much less distended. minimal tenderness. +bs's. Results & Data Vital Signs (Past 12 Hours) Vital Signs Temp Pulse Pulse Pulse Resp BP Pulse Ox 01/18/19 08:00 36.8 C 74 16 154/80 H 92 01/17/19 23:42 37.5 C 84 18 138/83 92 01/17/19 20:55 80 22 93 PG Care Time/CCT Total # of Minutes Spent Total Time Spent with Patient: Total time spent is greater than 50% in coordination of care (as documented) at patient's floor/unit and/or counseling patient: (1) Diverticulitis of intestine with perforation and abscess Diverticulitis bleeding: unspecified bleeding status Diverticulitis site: unspecified part of intestinal tract Qualified Code(s): K57.80 - Diverticulitis of intestine, part unspecified, with perforation and abscess without bleeding
[2019-01-18] MEDS: metroNIDAZOLE 500 MG/100 ML BAG IV SCH ×2 (10:33→17:29)
[2019-01-18] MEDS: ALBUTEROL HFA 8 GM INHALER INH PRN ×2 (10:34→13:54)
[2019-01-18 10:48] LABS: BUN Creatinine Ratio 38.6 (10-20); Bilirubin Direct 0.2 mg/dl (0-0.2); Calcium 8.7 mg/dl (8.5-10.1); Creatinine Clr Calc Pharmacy 79.8 ml/min; Est GFR (African American) 118.3; Est GFR (Non-African American) 102.1; Magnesium 2.4 mg/dl (1.8-2.4); Potassium 3.9 mmol/L (3.5-5.1)
[2019-01-18 10:54] LABS: Phosphorus 3.3 mg/dl (2.5-4.9); Prealbumin 14.2 mg/dl (20-40)
--- NOTE | 2019-01-18 11:25 | XRay Report ---
KUB HISTORY: Follow up study in a patient with ileus ileus/sbo COMPARISON: KUB 01/17/2019. FINDINGS: Distal tip of enteric tube projects over the abdominal left upper quadrant within the expec sandie location of the mid gastric lumen. Air is noted within the transverse colon. Persistent dilated a ir-filled loops of small bowel are seen measuring up to 4.3 cm transversely, previously approximately 4.2 cm. No significant change from comparison. No renal calculi. No ureteral calculi. No pneumoperit oneum or pneumatosis. No fracture. IMPRESSION: 1. Distal tip of enteric tube is located within the expected location of the mid gastric lumen. 2. Persistent small and large bowel gaseous distention suggestive of probable ileus with partial obst ruction also within the differential. Continued follow-up recommended. 3. No pneumoperitoneum. Electronically signed by: Dustin Ferris M.D. 01/18/2019 11:24 AM
--- NOTE | 2019-01-18 12:51 | Pharmacy Report ---
PHA: Parenteral Nutrition Con - Date of Service January 18, 2019 - Scope Pharmacy was consulted on 01/15 to manage parenteral nutrition orders for this patient. - Subjective The patient is currently on day [#4] of [peripheral] parenteral nutrition for possible ileus - Objective Height: 5 ft 7 in Weight: 51.1 kg Diet: Clear Liquid Intake & Output (24hrs):: Intake & Output 01/16/19 01/17/19 01/18/19 01/19/19 06:59 06:59 06:59 06:59 Intake Total 4478.333 / 4478.333 546.667 / 546.667 695.00 / 695.00 275 / 275 Output Total 2049 / 2049 2925 / 2925 3850 / 3850 350 / 350 Balance 2428.333 / 2428.333 -2378.333 / -2378.333 -3155.00 / -3155.00 -75 / -75 Weight 57.3 kg 53.7 kg 51.1 kg Laboratory Data (Last 24 Hr):: 01/18/19 08:17 Sodium 141 Potassium 3.9 Chloride 101 Carbon Dioxide 34 H BUN 28 H Creatinine 0.72 Glucose 127 H Calcium 8.7 Phosphorus 3.3 Magnesium 2.4 AST 44 H ALT 51 Alkaline Phosphatase 71 Prealbumin 14.2 L Nutrition Assessment:: Please refer to the Notes section of the EMR 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 - Plan Patient currently on day 4 of PPN for diverticulitis of intestine with perforation/abscess. Repeat KUB this am concerning for probable illeus with partial obstruction. Spoke with provider today, hopeful that patient will start eating and will hold off on placing PICC line. Stated that with current PPN patient only at about ~70% of nutrition needs, but am not able to titrate further due to peripheral access/osmolarity. Provider will reevaluate tomorrow and aware that PICC line may be necessary if nutrition does not improve. For day [#4] of PN administration, the following will be ordered: Macronutrients Amino acids 60 grams/day Dextrose 100 grams/day Lipids 50 grams/day Micronutrients Sodium chloride 80 mEq Potassium chloride 20 mEq Potassium phosphate 21 mM Multivitamins 10 mL Trace Elements 1 mL Additional additives: Zantc 150 mg - added today, per request of provider Total volume 1500 mL to be infused over 24 hrs will provide 1080 kcal/day Final osmolarity 896 mOsm/L (maximum for PPN is 900 mOsm/L) Labs, as indicated, will be ordered per protocol Pharmacy will continue to follow and adjust parenteral nutrition orders on a daily basis. Thank you for allowing us to participate in the care of this patient.
--- NOTE | 2019-01-18 14:48 | XRay Report ---
XR chest 1V portable CLINICAL HISTORY: 58 years-old Male presenting with hypoxia. TECHNIQUE: Portable upright AP view of the chest was obtained. COMPARISON: 01/15/2019. FINDINGS: Nasogastric tube descends to the distal esophagus, which is not below the diaphragm. Cardiomediastina l silhouette unchanged. Slightly decreased aeration of the right lung base with stable to slight incr ease in right basilar opacity. Slight decreased opacity at the left lung base. No large effusion or p neumothorax. Heterogeneous radiolucency of the upper lobes. No large pneumothorax. Osseous structures normal. Gaseous distention of small bowel. IMPRESSION: 1. Decreased left basilar infiltrate and stable to slight increased right basilar infiltrate. This i s concerning for aspiration, pneumonia, or atelectasis. 2. Nasogastric tube does not extend below the diaphragm; advancement is recommended. 3. Suspected underlying emphysema. 4. Gaseous distention of small bowel. Correlate clinically. Electronically signed by: Alok Mckinney M.D. 01/18/2019 2:47 PM
[2019-01-18] MEDS ORDERED: CUSTOM PERIPHERAL PN IV SCH ×2 (16:00)
--- NOTE | 2019-01-18 19:29 | Hospitalist Progress Note ---
Date of Service January 18, 2019 Assessment & Plan (1) Diverticulitis: CT abd/pelvis x 2 with sigmoid diverticulitis and probable microperforation and fluid collection in perisigmoid region. Remains on zosyn. Complicated by ileus. Patient clinically stable on exam, but leukocytosis a little worse today. Dr Ogden following - conservative management ongoing. Remains on TPN. Defer NG tube management to Dr Ogden. Defer overall management of diverticulitis to him as well. (2) Ileus: Cont NG tube decompression Improving clinically (3) COPD (chronic obstructive pulmonary disease): No exacerbation but requiring O2 - see below (4) Tobacco use disorder: Declines nicotine patch Needs to quit (5) Hypoxia: will repeat cxr to exclude developing pulm edema, etc if negative - due to COPD? (6) GERD (gastroesophageal reflux disease): add IV zantac to TPN due to ELOISA symptoms and ?coffee ground material in NG tube (7) DVT prophylaxis: - SCDs/Ambulation Subjective NG tube draining very dark material, ?some coffee ground material. had reflux last pm requiring maalox. some nausea as well - despite NG tube. passing flatus; had stool last pm. no abdominal pain. denies dyspnea but requiring NC O2. not on O2 at home. Review of Systems Constitutional: no fever and no chills Respiratory: no dyspnea Cardiovascular: no chest pain Gastrointestinal: + bloating; no vomiting Physical Exam Constitutional: + thin and + cachectic; no acute distress ENMT: Mouth: no oral mucosal abnormality and oral mucous membranes not dry NG tube in place Respiratory: no respiratory distress Auscultation: + diminished lung sounds (bases) and + wheezes Cardiovascular: Rate/Rhythm: regular rate and regular rhythm Heart Sounds: normal S1 and normal S2; no murmur Vessels: posterior tibial pulses present and dorsalis pedis pulses present; no JVD Gastrointestinal (Abdomen): Inspection/Auscultation: + abdomen distended and normal bowel sounds Percussion/Palpation: abdomen nontender and no hepatosplenomegaly Psychiatric: A+Ox3, euthymic affect Results & Data Vital Signs (Past 12 Hours) Vital Signs Temp Pulse Pulse Resp BP Pulse Ox 01/18/19 15:50 37.0 C 74 20 144/85 H 93 01/18/19 08:00 36.8 C 74 16 154/80 H 92 PG Care Time/CCT Total # of Minutes Spent Total Time Spent with Patient: Total time spent is greater than 50% in coordination of care (as documented) at patient's floor/unit and/or counseling patient: (1) COPD (chronic obstructive pulmonary disease) COPD type: unspecified COPD Qualified Code(s): J44.9 - Chronic obstructive pulmonary disease, unspecified (2) GERD (gastroesophageal reflux disease) Esophagitis presence: esophagitis presence not specified Qualified Code(s): K21.9 - Gastro-esophageal reflux disease without esophagitis
[2019-01-19] MEDS: HYDROmorphone INJ 0.5 MG/0.5 ML SYR IV PRN ×6 (00:05→20:41)
[2019-01-19] MEDS: metroNIDAZOLE 500 MG/100 ML BAG IV SCH ×3 (00:56→18:22)
[2019-01-19] MEDS: PIPERACILLIN/TAZOBACTAM 3.375 GM in DEXTROSE 5% 100 ML IV SCH ×2 (05:13→12:42)
[2019-01-19 07:45] LABS: Basophils # (auto) 0.07 K/uL (0-0.2); Basophils % (auto) 0.3 %; Eosinophils # (auto) 0.13 K/uL (0-0.5); Eosinophils % (auto) 0.6 %; Hematocrit (blood only) 40.8 % (42-52); Hemoglobin 14.4 g/dL (14.0-18.0); Immature Granulocytes # (auto) 0.07 K/uL (0.00-0.02); Immature Granulocytes % (auto) 0.3 %; Lymphocytes # (auto) 1.09 K/uL (1.2-3.4); Lymphocytes % (auto) 5.4 %; Mean Corpuscular Hgb Conc 35.3 g/dL (32-36); Mean Corpuscular Volume 89.9 fL (80-100); Mean Platelet Volume 9.2 fL (7.4-10.4); Monocytes # (auto) 1.16 K/uL (0.11-0.59); Monocytes % (auto) 5.8 %; Neutrophils # (auto) 17.57 K/uL (1.4-6.5); Neutrophils % (auto) 87.6 %; Platelet Count 462 K/uL (130-400); RDW Coefficient of Variation 14.2 % (11.5-14.5); RDW Standard Deviation 46.6 fL (36.4-46.3); Red Blood Count 4.54 M/uL (4.7-6.1); White Blood Count 20.09 K/uL (4.8-10.8)
[2019-01-19 08:14] LABS: BUN Creatinine Ratio 38.4 (10-20); Creatinine Clr Calc Pharmacy 79.4 ml/min; Est GFR (African American) 119.7; Est GFR (Non-African American) 103.3; Magnesium 2.3 mg/dl (1.8-2.4)
--- NOTE | 2019-01-19 08:36 | Surgery Progress Note ---
Date of Service January 19, 2019 Assessment & Plan (1) Diverticulitis: clinically seems to be improving will repeat CT scan b/c of leukocytosis. may have developed a walled off diverticular abcess that may or may not need drained by IR will also obtain ct chest b/c of cough/leukocytosis cont PPN. may need to place PICC /TPN...d/w pharmacy yesterday. will wait until CT results. (2) Leukocytosis: Subjective pt seen. clinically doing well. hungry/wants to eat. no more bm's but increased flatus. no n/v. denies abdominal pain Physical Exam Physical Exam: alert. nad abd: soft. distension continues to decrease. minimal LLQ ttp. no g/r/r. ngt much more thin today. Results & Data Vital Signs (Past 12 Hours) Vital Signs Temp Pulse Resp BP Pulse Ox 01/19/19 07:08 37.0 C 76 18 135/82 100 01/18/19 23:10 37.3 C 72 18 135/75 93 PG Care Time/CCT Total # of Minutes Spent Total Time Spent with Patient: Total time spent is greater than 50% in coordination of care (as documented) at patient's floor/unit and/or counseling patient: (1) Leukocytosis Leukocytosis type: unspecified Qualified Code(s): D72.829 - Elevated white blood cell count, unspecified
[2019-01-19] MEDS ORDERED: IOVERSOL 100ml IV PRN (11:56)
--- NOTE | 2019-01-19 13:11 | CT Scan Report ---
CHEST CT WITH CONTRAST CT DOSE: 464.57 mGy.cm HISTORY: leukocytosis and cough , ok to give iv per rad TECHNIQUE: Multiaxial CT images of the chest were performed following the intravenous administration of contrast. A dose lowering technique was utilized adhering to the principles of ALARA. COMPARISON: Chest 01/18/2019. Abdomen and pelvis CT 01/12/2019. FINDINGS: No pneumothorax. Small bilateral pleural effusions have increased in size. Nasogastric tube terminates in the stomach. Peripheral gas within the left hepatic lobe is concerning for portal veno us gas. This is concerning for pneumatosis/ischemic bowel. Please refer to the same day abdomen and p ethan CT for further evaluation. This is new from the prior study. The lungs are hyperexpanded with a dvanced emphysema. Small amount mucoid material within the right mainstem bronchus and partial opacif ication the right lower lobe bronchi. There are areas of consolidation within the right lower lobe po steriorly. Linear densities within the basal left lower lobe and lingula are noted. Normal esophagus. No significant mediastinal or hilar lymphadenopathy. The heart is normal in size. Normal caliber tho racic aorta with no evidence for dissection. The main pulmonary arteries are patent. IMPRESSION: 1. Portal venous gas within the left hepatic lobe. This raises the possibility of pneumatosis/ischemi c bowel. Please refer to the same day abdomen and pelvis CT for further evaluation. 2. Small amount of mucoid material within the right mainstem bronchus with partial opacification righ t lower lobe bronchi. There is also consolidation within the right lower lobe posteriorly. Therefore, this is suspicious for aspiration pneumonitis. 3. Linear densities within the base of the left lower lobe and lingula are nonspecific but may repres ent subsegmental atelectasis. 4. Advanced emphysema. 5. Small bilateral pleural effusions have increased in size. 6. Nasogastric tube terminates in the stomach. Electronically signed by: Jj Pitts M.D. 01/19/2019 1:10 PM
--- NOTE | 2019-01-19 13:14 | CT Scan Report ---
CT abd pelvis oral and IV con CLINICAL HISTORY: 58 years-old Male presenting with leukocytosis and cough, diverticulitis, SBO. TECHNIQUE: Multidetector CT of the abdomen and pelvis was performed after the administration of oral and intravenous contrast. IV contrast: 94 mL of Optiray 320. One or more dose lowering techniques wer e used consistent with the principles of ALARA (as low as reasonably achievable), including automatic exposure control, mA or kV adjustment to individual patient size, and/or use of iterative reconstruc tion. COMPARISON: 01/12/2019. CT DOSE (mGy.cm): The estimated cumulative dose is 464.57. FINDINGS: Family Educator topogram: Diffuse gaseous distention of small and large bowel. Lung bases: Normal heart size. Small to moderate right and small left pleural effusions significantly increased from prior. Significant interval increase in bibasilar atelectasis on a background of anna re emphysema. Bronchial wall thickening and subsegmental endobronchial debris in the lower lobes is a lso worsened from prior. Liver: Normal morphology. Subcentimeter hypodensity in the right hepatic lobe likely hepatic cyst or hamartoma. Interval development of portal venous gas in the left hepatic lobe. Otherwise patent vascu lature. Biliary: No intrahepatic or extrahepatic biliary ductal dilatation. Normal gallbladder. Pancreas: Normal. Spleen: Normal. Adrenal glands: Normal. Kidneys and ureters: Multiple subcentimeter cysts noted bilaterally. Nonobstructing nephrolithiasis a t the lower poles. No hydronephrosis. Ureters poorly evaluated. Bladder: Incompletely evaluated secondary to underdistention. Pelvic organs: Prostate enlargement likely secondary to benign prostatic hyperplasia. Bowel: Poorly delineated sigmoid colon with significant wall thickening and surrounding inflammatory change associated with the presence of sigmoid diverticulosis. Inflammatory change in the sigmoid mes ocolon extend superiorly in the retroperitoneum with a gas and fluid containing multilobular mesenter ic abscess measuring up to 4.1 cm in diameter. This has significantly progressed from prior. There is decompression of the descending colon and mild gaseous distention of the right colon. Small bowel is significantly distended with fluid to the level of the terminal ileum consistent with ileus or parti al colonic obstruction. Nasogastric tube terminates in the body the stomach. Peritoneal cavity: Small volume free fluid in the pelvis with evidence of peritoneal thickening and e nhancement consistent with peritonitis. Lymph nodes: No enlarged lymph nodes in the abdomen or pelvis. Vasculature: Atherosclerosis of the normal caliber abdominal aorta. IVC patent. Abdominal wall: Diffuse body wall edema. Musculoskeletal: Degenerative changes of the spine. IMPRESSION: 1. Interval worsening of the multilobular mesenteric abscess extending from the abnormal sigmoid col on. This could represent complicated sigmoid diverticulitis versus ectopic location of an underlying sigmoid neoplasm. The mesenteric abscess measures up to 4.1 cm. 2. Interval development of portal venous gas in the left hepatic lobe. No other evidence to suggest ischemic bowel. The etiology of this gas could potentially be from the gas within the mesenteric absc ess. Close clinical follow-up is warranted. 3. Interval development of peritonitis with small volume fluid in the pelvis. 4. Significant small bowel distention without evidence of a small bowel obstruction. Given that the right colon is mildly distended and the left colon is decompressed, this appearance favors ileus like ly due to the presence of peritonitis. It is difficult to exclude a partial obstruction at the sigmoi d colon though left colonic distention would be expected. 5. Volume overload with significantly increased size of the small to moderate right and small left p leural effusions with body wall edema. Electronically signed by: Alok Mckinney M.D. 01/19/2019 1:13 PM
--- NOTE | 2019-01-19 15:45 | Surgery Progress Note ---
Date of Service January 19, 2019 Assessment & Plan (1) Hypoxia: Patient underwent CT chest/abd/pelvis today for worsening leukocytosis. CT revealed a 4.1cm abscess extending from the sigmoid colon. Scan reviewed with Dr. Ogden and it is our recommendation that patient be transferred to a c enter with Interventional Radiology capabilities so that this can be drained. I spoke with patient who is agreeable with this plan. We have been in contact with the hospitalist team who will help to coordinate patient's transfer. Subjective patient states he feels some lower abdominal pain after drinking contrast for CT scan Physical Exam Physical Exam: awake and alert Gastrointestinal (Abdomen): Inspection/Auscultation: + abdomen distended NGT with bilious drainage Results & Data Vital Signs (Past 12 Hours) Vital Signs Temp Pulse Resp BP Pulse Ox 01/19/19 14:52 36.7 C 70 16 157/80 H 91 01/19/19 07:08 37.0 C 76 18 135/82 100 PG Care Time/CCT Total # of Minutes Spent Total Time Spent with Patient: Total time spent is greater than 50% in coordination of care (as documented) at patient's floor/unit and/or counseling patient:
[2019-01-19] MEDS ORDERED: CUSTOM PERIPHERAL PN IV SCH (16:00)
--- NOTE | 2019-01-19 17:57 | Discharge Summary ---
Date of Service date of admission - January 09, 2019 date of discharge - January 19, 2019 Admission HPI Per Admitting Provider 58 y/o male with history of tobacco dependence and COPD who presented with complaints of abdominal pain. 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 He thought he was dehydrated and increased his water intake but this did not help and in fact his pain became worse. He had similar epigastric pain about 2.5-3 months ago and was diagnosed with SBO as an outpt. He took miralax and this resolved. Given that the pain was similar, he tried miralax again, but his pain continued to get worse. He started to have nausea/vomiting today with worsening pain so he came to the ED for evaluation. Pt has no prior hx of diverticulitis. Pt was given IVF, zosyn, pain medications in the ED and feels his pain is now 4- 5/10, which is better, but still present. His last emesis was in the ED. He has not eaten in several days due to this pain. Pt denies fever, SOB, chest pain, c/d, LE pain or swelling. Principal Diagnosis complicated sigmoid diverticulitis with abscess and microperforation Discharge Exam Constitutional + thin and + cachectic; no acute distress ENMT Mouth: no oral mucosal abnormality and oral mucous membranes not dry Respiratory no respiratory distress Auscultation: + diminished lung sounds (bases) and + wheezes (occasional) Cardiovascular Rate/Rhythm: regular rate and regular rhythm Heart Sounds: normal S1 and normal S2; no murmur Vessels: posterior tibial pulses present and dorsalis pedis pulses present; no JVD Gastrointestinal (Abdomen) Inspection/Auscultation: + abdomen distended and normal bowel sounds Percussion/Palpation: abdomen nontender and no hepatosplenomegaly Psychiatric A+Ox3, euthymic affect Discharge Data Allergies Allergy/AdvReac Type Severity Reaction Status Date / Time No Known Allergies Allergy Unverified 01/09/19 13:58 Consultations general surgery - Sukhwinder Ogden DO Ordered Studies 1. CT abd pelvis - 01/09/19: IMPRESSION: 1. Very difficult study to interpret secondary to the lack of orally administered contrast and the paucity of intra-abdominal fat 2. Nonobstructing left-sided nephrolithiasis 3. No evidence of bowel obstruction 4. Sigmoid wall thickening. Diverticulitis is suspected 5. Possible extraluminal gas bubbles and a small fluid collection in the perisigmoid region. A focal perforation with a small perisigmoid abscess must be considered. 6. If follow-up imaging is performed, oral and intravenous contrast should be administered. 2. CT abd pelvis - 01/12/19: IMPRESSION: 1. Circumferential wall thickening of the sigmoid colon redemonstrated suggestive of acute diverticulitis or colitis. Again noted are several foci of extraluminal air within the sigmoid mesocolon compatible with associated microperforation. Air and fluid-filled structure within the presacral distribution measuring up to 2.1 x 3.2 cm is unchanged suggestive of a small abscess or bowel loop. Close clinical follow-up is needed. 2. No bowel obstruction. 3. Nonobstructing left renal calculi. 4. Air-fluid levels throughout the colon suggestive of diarrheal illness. 3. CT abd pelvis oral and IV contrast - 01/19/19: IMPRESSION: 1. Interval worsening of the multilobular mesenteric abscess extending from the abnormal sigmoid colon. This could represent complicated sigmoid diverticulitis versus ectopic location of an underlying sigmoid neoplasm. The mesenteric abscess measures up to 4.1 cm. 2. Interval development of portal venous gas in the left hepatic lobe. No other evidence to suggest ischemic bowel. The etiology of this gas could potentially be from the gas within the mesenteric abscess. Close clinical follow-up is warranted. 3. Interval development of peritonitis with small volume fluid in the pelvis. 4. Significant small bowel distention without evidence of a small bowel obstruction. Given that the right colon is mildly distended and the left colon is decompressed, this appearance favors ileus likely due to the presence of peritonitis. It is difficult to exclude a partial obstruction at the sigmoid colon though left colonic distention would be expected. 5. Volume overload with significantly increased size of the small to moderate right and small left pleural effusions with body wall edema. 4. CT chest - 01/19/19: IMPRESSION: 1. Portal venous gas within the left hepatic lobe. This raises the possibility of pneumatosis/ischemic bowel. Please refer to the same day abdomen and pelvis CT for further evaluation. 2. Small amount of mucoid material within the right mainstem bronchus with partial opacification right lower lobe bronchi. There is also consolidation within the right lower lobe posteriorly. Therefore, this is suspicious for aspiration pneumonitis. 3. Linear densities within the base of the left lower lobe and lingula are nonspecific but may represent subsegmental atelectasis. 4. Advanced emphysema. 5. Small bilateral pleural effusions have increased in size. 6. Nasogastric tube terminates in the stomach. Hospital Course (1) Diverticulitis: Following admission the patient was placed on broad-spectrum IV antibiotics (zosyn), kept NPO, and given IV hydration. General surgery was consulted for co-management of the sigmoid diverticulitis. A repeat CT abd/pelvis 2 days later showed little change in the sigmoid colon. The amount of microperforation and the abscess were similar to prior imaging. Leukocytosis and clinical exam improved early on in his course and attempts were made to start him on a clear liquid diet. Unfortunately he did poorly with this and x-rays showed developing ileus. He was therefore made NPO again and ultimately required use of NG tube for decompression. PPN was started at that time as well; zosyn was continued. Over the 2-3 days prior to discharge the patient's WBC count started to trend upwards again and his exam showed ongoing distension. Due to the worsening leukocytosis and lack of clinical improvement despite conservative measures/IV antibiotics another CT of the abdomen/pelvis was obtained on the AM of 01/19/2019. This showed that the diverticular abscess was enlarging. Additionally there was now the presence of portal vein gas and a small amount of ascites. Despite these findings he did not have peritoneal signs on examination. On the afternoon of 01/19/19, in light of his CT results, it was felt that Mr Singleton should transfer to a tertiary care center for consideration of IR- drainage of the diverticular abscess. Therefore Dr Baljit Cho, colorectal surgery, was contacted at [facility] who graciously accepted Mr Singleton in transfer for ongoing care. (2) Colonic diverticular abscess: See discussion above in "diverticulitis" (3) Ileus: Developed such in the setting of his complicated sigmoid diverticulitis. Required NG tube for decompression. He was indeed passing flatus/stool in the 48 hours leading up to transfer to [facility]. However, he remained quite distended on examination. At time of transfer NG tube remained in place. (4) COPD (chronic obstructive pulmonary disease): Moderate-severe by history. No exacerbation during this stay but he did require NC O2 for most of his hospitalization. CT chest on day of discharge appeared to show mucous in his right mainstem bronchus as well as RLL pneumonia. He was on zosyn his entire hospital stay which should have been covering the pneumonia adequately. He has no prior h/o MRSA carriage or MRSA infection. (5) Tobacco use disorder: Declined nicotine patch while here. Counseled to quit tobacco usage. (6) GERD (gastroesophageal reflux disease): Treated with IV zantac added to his PPN. (7) RLL pneumonia: As seen on CT chest and chest x-rays. Treated with zosyn. No history of dysphagia or aspiration. Consider formal speech evaluation just to be complete once taking PO again. (8) Hypoxia: Likely due to RLL pneumonia and his COPD. Stable on 2 liters NC O2 at time of discharge. (9) Low body mass index (BMI): BMI 17. Suspect due to COPD. Total Time Total Time Spent Total Time Spent (In Minutes): 50 Total Time Includes: Examination of the Patient, Discharge Planning, Medication Reconciliation and Communication With Other Providers Discharge Plan Discharge Items Patient Disposition: Transfer Acute Care Hospital Reason For Visit: DIVERTICULITIS Discharge Diagnosis: complicated diverticulitis with abscess and microperforation Discharge Goals: Diagnostic testing and Therapeutic intervention Activity: As commented below Activity Comment: bedrest Non-emergency contact: Primary Care Provider and Surgeon Call non-emergency contact if: you have any medication questions Follow-up/Referrals: Suhail Waterman III, MD [Physician] - 01/21/19 2:00 pm (Please, follow up at Dr. Waterman's office wit his associate, Princess SALTER, on January 21 at 2:00 pm. *If you need to change this appointment, call the office at [phone].) Diet: Nothing by mouth Addtl Provider Instructions: Future care plan to be determined after hospitalization at [facility]. Prescriptions: New piperacillin-tazobactam [Zosyn] 3.375 gram recon soln 3.375 gm IV Q8H Qty: 10 RF: 0 Continued albuterol sulfate [ProAir HFA] 90 mcg/actuation HFA aerosol inhaler 2 puff inhalation QID PRN (Reason: COPD) RF: 0 Stand-Alone Forms: Call Back Authorization, [facility] Discharge Orders: Discharge Order (Routine); Ordered 01/19/19 Ordered By: Blu Lorenzo Admission Data Admit Date/Time: 01/09/19 16:01 Attending Provider: Blu Lorenzo Admit Provider: Rosario Orona Primary Care Provider: PCP,NO Other Providers: Rosario Orona ; Stephen Ogden Service: Medical
[2019-01-19] MEDS ORDERED: D5NSS + 20MEQ KCL 20 MEQ/1,000 ML BAG IV SCH (18:00)
== END 2019-01-19 21:12 | disposition short-term general hospital (02) | DRG 392 ==
LOC: ED 12:28 → 3N 16:01 → SUATTDRO 16:01 → 3N 16:37
DX: R09.02 Hypoxemia; F17.200 Nicotine dependence, unspecified, uncomplicated; K21.9 Gastro-esophageal reflux disease without esophagitis; K56.7 Ileus, unspecified; K57.20 Diverticulitis of large intestine with perforation and abscess without bleeding; J44.9 Chronic obstructive pulmonary disease, unspecified

== ENCOUNTER 2023-02-26 16:15 | Observation (INO) ==
--- NOTE | 2023-02-26 16:40 | Emergency Department Note ---
Impression & Plan Acute exacerbation of chronic obstructive airways disease, Acute hypoxemic respiratory failure ED Provider Note NAME: AMY ACOSTA AGE: 62 SEX: M : 1960 ARRIVES VIA: Walk-In INFORMANT: Patient, ED PROVIDER(S): Brandan Philip MD CHIEF COMPLAINT: Shortness of breath, outpatient referral MEDICAL DECISION MAKING: Patient presents due to concern for shortness of breath and associated hypoxia with known history of COPD. No evidence of obvious volume overload on exam. Patient was treated with DuoNebs steroids IV fluids and magnesium. Patient has a normal white count hemoglobin and platelet count. The patient's kidney function is unremarkable. Troponin is slightly elevated at 104 but believe this is likely demand related. EKG with no signs of obvious ischemia. VBG does show some hypercarbia but likely compensated as the patient's VBG pH is 7.36. Bio fire is negative. I did speak the on-call hospitalist service Dr. Phan and the patient was admitted to the medicine service. Critical Care: I have personally spent 45 minutes of critical care time in direct management of this patient. This includes bedside care, interpretation of diagnostic studies, and testing, discussion with consultants, patient, and family members, and other require inpatient management activities. This 45 minutes is in excess of all separately billable procedures. Discussion w/ other healthcare providers: Dr. Phan inpatient medicine service Prior /Outside records reviewed: I reviewed a primary care visit from Dr. Pennington from today. The patient was seen and was thought to be suffering from a COPD exacerbation with associated acute hypoxic respiratory failure Differential diagnosis: Reactive airway disease, pneumonia, pneumothorax, COPD, CHF, ACS, pulmonary embolism, musculoskeletal, GERD as well as other pathologies were considered. Diagnostics, as interpreted by me: ECG: Normal sinus rhythm, rate of 74, normal intervals, normal axis no ST elevations. Cardiac monitoring: An order was placed for continuous cardiac monitoring. The monitor shows a rate of 72 with sinus rhythm. Patient was placed on pulse oximetry Medical decision rules: None Imaging studies: I informally interpreted the patient's chest x-ray which does not show obvious pneumothorax or pneumonia with formal report to follow. HPI: Patient presents due to concern for worsening shortness of breath which has been ongoing and associated CASTA[place]EDA. The patient denies any orthopnea or leg swelling. No prior history of DVT or PE. Patient known history of COPD. Former smoker and has not smoked recently. The patient has had a productive cough with occasionally discolored sputum. Patient denies any falls or trauma. PAST MEDICAL HISTORY: See Below PAST SURGICAL HISTORY: See Below SOCIAL HISTORY: See Below HOME MEDICATIONS: See Below ALLERGIES: See Below VITALS: See Below PHYSICAL EXAMINATION: GENERAL: NAD, non-toxic. Thin in appearance, nasal cannula in place. EYE EXAM: Normal conjunctiva. PERRL, no anisocoria and EOM's grossly intact w/o pain. OROPHARYNX: Moist mucus membranes, grossly normal dentition. NECK: Supple, no nuchal rigidity, no adenopathy, non-tender. No signs of meningismus. FROM of the neck with good chin to chest and neck extension. No stridor. LUNGS: Inspiratory next Tory wheezing noted with more prolonged expiratory phase. HEART: NSR, no MRG. ABDOMEN: Abdomen soft, non-tender, no masses, no rebound or guarding. BACK: No CVA TTP. SKIN: No rashes and no bruising. UPPER EXTREMITIES: Upper extremities are grossly normal. LOWER EXTREMITIES: Grossly normal, no edema. Negative Homans' sign bilaterally. NEURO EXAM: A&O x3, cranial nerves II-XII grossly intact, normal speech, moves all 4 extremities. Past Med/Surg History Medical History COPD (chronic obstructive pulmonary disease) Mesenteric abscess Surgical History History of colonoscopy (03/25/19) [facility] [place], Dr. Baljit Cho, sigmoid mucosa congestion, no polyps, recheck in 10 years History of low anterior resection of rectum (04/26/19) Dr. Baljit Cho, [facility] [place], done for perforated diverticulitis with abscess Family History Denies family history of Myocardial infarction Stroke Social History Smoking Status: Never smoker Age Quit Using Tobacco: 62; packs per day: 1; Cigarettes Per Day: 20; Second Hand Exposure: No; Do You Dip or Chew Tobacco: No; Hx Alcohol Use: No Hx Substance Use: No Preferred Language: Italian Communication Ability: Effective Clinical Nursing Coordinator Required: No Beliefs That Will Affect Care: None marital status: Current Living Situation: Alone Feels Safe at Home: Yes caffeine: Yes Assistive Devices: None Allergies Allergies Allergy/AdvReac Type Severity Reaction Status Date / Time varenicline [From Chantix] Allergy Unknown Verified 02/26/23 14:12 Home Meds Previous Rx's Medication Instructions Recorded albuterol sulfate 90 mcg/actuation 2 puff inhalation QID PRN 07/22/22 aerosol inhaler (ProAir HFA) Shortness Of Breath #18 grams fluticasone fur. 100 mcg-umeclid 1 inh inhalation DAILY #60 ea 07/22/22 62.5 mcg-vilant 25 mcg inhalat.powder (Trelegy Ellipta) mirtazapine 15 mg tablet 15 mg PO DAILY #90 tabs 10/03/22 azithromycin 250 mg tablet 500 mg PO Q24H #4 tabs 02/27/23 ipratropium 0.5 mg-albuterol 3 mg 3 ml inhalation Q4H PRN wheezing 02/27/23 (2.5 mg base)/3 mL nebulization #180 mL soln prednisone 10 mg tablet 10 mg PO Q OTHER DAY #42 tabs 02/27/23 Results & Data (ED) Vital Signs Vital Signs - 24 hr 02/26/23 16:34 Temperature 36.6 C Temperature Source Temporal Artery Scan Pulse Rate 79 Respiratory Rate 28 H Respiratory Effort / Characteristics Labored Respiratory Depth Normal Respiratory Pattern Tachypnea Blood Pressure 119/66 Blood Pressure Mean 83 Pulse Oximetry 98 Oxygen Delivery Method Room Air Sepsis Recent Fever Within 48 Hours No Sepsis New/Unexplained Change in Mental Status No Sepsis Action Taken by Nursing No Action Required Home Medications Current Medication List: was personally reviewed by me Laboratory Data Attestation: I reviewed the patient's lab results. 02/26/23 16:51 02/26/23 16:51 Lab Results 02/26/23 02/26/23 02/26/23 Range/Units 16:51 16:51 16:51 WBC 7.16 (4.8-10.8) K/ul RBC 5.58 (4.70-6.10) M/uL Hgb 17.8 (14.0-18.0) g/dl Hct 50.9 (42.0-52.0) % MCV 91.2 (80.0-100.0) fL MCH 31.9 (25.0-34.0) pg MCHC 35.0 (32.0-36.0) g/dL RDW Std Deviation 43.8 (36.4-46.3) fL RDW Coeff of Shawanda 12.9 (11.5-14.5) % Plt Count 267 (130-400) K/uL MPV 9.4 (9.4-12.4) fL Immature Gran % (Auto) 1.3 % Neut % (Auto) 59.3 % Lymph % (Auto) 22.6 % Rooks % (Auto) 9.2 % Eos % (Auto) 6.1 % Baso % (Auto) 1.5 % Neut # (Auto) 4.24 (1.40-6.50) K/uL Lymph # (Auto) 1.62 (1.20-3.40) K/uL Rooks # (Auto) 0.66 H (0.11-0.59) K/uL Eos # (Auto) 0.44 (0.00-0.50) K/uL Baso # (Auto) 0.11 (0.00-0.20) K/uL Immature Gran # (Auto) 0.09 (0.01-0.20) K/uL PT 11.0 (9.0-12.0) Seconds INR 1.0 (0.9-1.1) APTT 28.8 (21.0-31.0) Seconds PTT Ratio 1.0 VBG pH (7.36-7.41) VBG pCO2 (38-50) mmHg VBG pO2 mmHg VBG HCO3 mmol/L VBG O2 Saturation % VBG Base Excess mEq/L Sodium 137 (136-145) mmol/L Potassium 3.9 (3.5-5.1) mmol/L Chloride 103 (98-107) mmol/L Carbon Dioxide 31 (21-32) mmol/L Anion Gap 3 (3-11) BUN 14 (6-23) mg/dl Creatinine 0.84 (0.6-1.4) mg/dl Est Cr Clr Drug Dosing Not Reportable Est GFR ( Amer) 108.0 ml/min Est GFR (Non-Af Amer) 93.2 ml/min BUN/Creatinine Ratio 16.7 (10-20) Glucose 82 (70-99(Fasting)) mg/dl Calcium 9.0 (8.6-10.3) mg/dl Magnesium 2.1 (1.7-2.4) mg/dl Total Bilirubin 0.7 (0.2-1.0) mg/dl AST 19 (13-39) U/L ALT 15 (7-52) U/L Alkaline Phosphatase 63 (34-104) U/L Troponin I High Sens 104.5 H* (0-20) pg/ml Total Protein 6.8 (6.0-8.3) gm/dl Albumin 4.5 (3.4-5.0) gm/dl Globulin 2.3 L (2.5-4.0) gm/dl Albumin/Globulin Ratio 2.0 (0.9-2) Adenovirus (PCR) (NotDetected) B. pertussis DNA (PCR) (NotDetected) B.parapertussis DNA PCR (NotDetected) C. pneumoniae DNA (PCR) (NotDetected) Coronavirus OC43 (PCR) (NotDetected) Coronavirus HKU1 (PCR) (NotDetected) Coronavirus 229E (PCR) (NotDetected) SARS-CoV-2 (PCR) (NotDetected) Coronavirus NL63 (PCR) (NotDetected) Human Metapneumovir PCR (NotDetected) Influenza Type A (PCR) (NotDetected) Influenza Type B (PCR) (NotDetected) M. pneumoniae (PCR) (NotDetected) Parainfluenza 1 (PCR) (NotDetected) Parainfluenza 2 (PCR) (NotDetected) Parainfluenza 3 (PCR) (NotDetected) Parainfluenza 4 (PCR) (NotDetected) RSV (PCR) (NotDetected) Entero/Rhino (PCR) (NotDetected) 02/26/23 02/26/23 Range/Units 16:52 17:15 WBC (4.8-10.8) K/ul RBC (4.70-6.10) M/uL Hgb (14.0-18.0) g/dl Hct (42.0-52.0) % MCV (80.0-100.0) fL MCH (25.0-34.0) pg MCHC (32.0-36.0) g/dL RDW Std Deviation (36.4-46.3) fL RDW Coeff of Shawanda (11.5-14.5) % Plt Count (130-400) K/uL MPV (9.4-12.4) fL Immature Gran % (Auto) % Neut % (Auto) % Lymph % (Auto) % Rooks % (Auto) % Eos % (Auto) % Baso % (Auto) % Neut # (Auto) (1.40-6.50) K/uL Lymph # (Auto) (1.20-3.40) K/uL Rooks # (Auto) (0.11-0.59) K/uL Eos # (Auto) (0.00-0.50) K/uL Baso # (Auto) (0.00-0.20) K/uL Immature Gran # (Auto) (0.01-0.20) K/uL PT (9.0-12.0) Seconds INR (0.9-1.1) APTT (21.0-31.0) Seconds PTT Ratio VBG pH 7.36 (7.36-7.41) VBG pCO2 58 H (38-50) mmHg VBG pO2 32 mmHg VBG HCO3 33 mmol/L VBG O2 Saturation < 60.0 % VBG Base Excess 5.6 mEq/L Sodium (136-145) mmol/L Potassium (3.5-5.1) mmol/L Chloride (98-107) mmol/L Carbon Dioxide (21-32) mmol/L Anion Gap (3-11) BUN (6-23) mg/dl Creatinine (0.6-1.4) mg/dl Est Cr Clr Drug Dosing Est GFR ( Amer) ml/min Est GFR (Non-Af Amer) ml/min BUN/Creatinine Ratio (10-20) Glucose (70-99(Fasting)) mg/dl Calcium (8.6-10.3) mg/dl Magnesium (1.7-2.4) mg/dl Total Bilirubin (0.2-1.0) mg/dl AST (13-39) U/L ALT (7-52) U/L Alkaline Phosphatase (34-104) U/L Troponin I High Sens (0-20) pg/ml Total Protein (6.0-8.3) gm/dl Albumin (3.4-5.0) gm/dl Globulin (2.5-4.0) gm/dl Albumin/Globulin Ratio (0.9-2) Adenovirus (PCR) Not Detected (NotDetected) B. pertussis DNA (PCR) Not Detected (NotDetected) B.parapertussis DNA PCR Not Detected (NotDetected) C. pneumoniae DNA (PCR) Not Detected (NotDetected) Coronavirus OC43 (PCR) Not Detected (NotDetected) Coronavirus HKU1 (PCR) Not Detected (NotDetected) Coronavirus 229E (PCR) Not Detected (NotDetected) SARS-CoV-2 (PCR) Not Detected (NotDetected) Coronavirus NL63 (PCR) Not Detected (NotDetected) Human Metapneumovir PCR Not Detected (NotDetected) Influenza Type A (PCR) Not Detected (NotDetected) Influenza Type B (PCR) Not Detected (NotDetected) M. pneumoniae (PCR) Not Detected (NotDetected) Parainfluenza 1 (PCR) Not Detected (NotDetected) Parainfluenza 2 (PCR) Not Detected (NotDetected) Parainfluenza 3 (PCR) Not Detected (NotDetected) Parainfluenza 4 (PCR) Not Detected (NotDetected) RSV (PCR) Not Detected (NotDetected) Entero/Rhino (PCR) Not Detected (NotDetected) Administered Medications Discontinued Medications Albuterol (Albut/Ipratrop 3mg/0.5mg Neb 3 Ml Vial) 12 ml INH ONE STA Stop: 02/26/23 17:00 Last Admin: 02/26/23 17:16 Dose: 12 ml Documented By: GAYLA Albuterol (Albut/Ipratrop 3mg/0.5mg Neb 3 Ml Vial) 3 ml NEB QIDR SHANELLE; Protocol Stop: 03/28/23 21:18 Last Admin: 02/27/23 10:50 Dose: 3 ml Documented By: Admin: 02/27/23 07:51 Dose: Not Given Documented By: Admin: 02/26/23 22:06 Dose: 3 ml Documented By: WEST Azithromycin (Azithromycin 250 Mg Tab) 500 mg PO Q24H SHANELLE Stop: 02/28/23 22:01 Last Admin: 02/26/23 22:01 Dose: 500 mg Documented By: CAMDEN Budesonide (Budesonide 0.5 Mg/2 Ml Vial (Pulmicort)) 0.5 mg NEB BIDR SHANELLE Stop: 03/28/23 21:18 Last Admin: 02/27/23 07:17 Dose: 0.5 mg Documented By: Admin: 02/26/23 22:06 Dose: 0.5 mg Documented By: WEST Enoxaparin Sodium (Enoxaparin Inj 40 Mg/0.4 Ml Syr) 40 mg SQ QAM SHANELLE Stop: 03/29/23 08:59 Last Admin: 02/27/23 08:16 Dose: 40 mg Documented By: KAYLEN Formoterol Fumarate (Formoterol 20 Mcg/2 Ml Vial) 20 mcg NEB BIDR SHANELLE Stop: 03/28/23 21:18 Last Admin: 02/27/23 07:17 Dose: 20 mcg Documented By: Admin: 02/26/23 22:06 Dose: Not Given Documented By: WEST Sodium Chloride (Nss) 1,000 mls @ 999 mls/hr IV .Q1H1M SHANELLE Stop: 02/26/23 18:00 Last Infusion: 02/26/23 17:51 Dose: 0 mls/hr Documented By: Admin: 02/26/23 17:17 Dose: 999 mls/hr Documented By: GAYLA Magnesium Sulfate/Dextrose (Magnesium Sulfate / D5w) 1 gm in 100 mls @ 100 mls/hr IV Q1H SHANELLE Stop: 02/26/23 18:59 Last Infusion: 02/26/23 18:59 Dose: 0 mls/hr Documented By: Admin: 02/26/23 17:50 Dose: 100 mls/hr Documented By: Infusion: 02/26/23 17:50 Dose: 100 mls/hr Documented By: Admin: 02/26/23 17:17 Dose: 100 mls/hr Documented By: GAYLA Methylprednisolone 40 mg/ (Syringe) 0.64 mls @ 1.5 mls/min IV Q12H SHANELLE Stop: 03/28/23 21:59 Last Admin: 02/27/23 10:49 Dose: 1.5 mls/min Documented By: Admin: 02/26/23 22:02 Dose: 1.5 mls/min Documented By: CAMDEN Methylprednisolone (Methylprednisolone 125 Mg/2 Ml Vial) 125 mg IV NOW STA Stop: 02/26/23 17:00 Last Admin: 02/26/23 17:17 Dose: 125 mg Documented By: GAYLA Mirtazapine (Mirtazapine Tab 15 Mg Tab) 15 mg PO HS SHANELLE Stop: 03/28/23 21:18 Last Admin: 02/26/23 22:01 Dose: 15 mg Documented By: CAMDEN Imaging Data Radiologist's Impression: Chest X-Ray 02/26/23 16:59 XR chest 1V portable CLINICAL HISTORY: Dyspnea TECHNIQUE: Single frontal radiograph of the chest was obtained. Comparison: Comparison is made to rib series 10/29/[address] chest 02/11/2023. FINDINGS: No lines and tubes are seen. The cardiomediastinal silhouette is normal. Emphysema is seen. Focal density in the left lower lung corresponds to a focus of scarring/atelectasis seen on prior CT. No evidence of pleural effusion or pneumothorax. IMPRESSION: No acute chest disease. ACT 112: Negative or not required by law. Electronically signed by: Juanjo Parikh M.D. 02/26/2023 6:00 PM Discharge Plan Visit Data Chief Complaint: Shortness of Breath/Dyspnea Stated Complaint: REF FOR SOB ED Provider: Brandan Philip Discharge Problem: Acute exacerbation of chronic obstructive airways disease, Acute hypoxemic respiratory failure Patient Disposition: Admitted As Inpatient Discharge Instructions Interventions: ED Discharge Assessment Last Done: 02/27/23 01:12
[2023-02-26] MEDS ORDERED: ALBUT/IPRATROP 3MG/0.5MG NEB 3 ML VIAL INH STA (16:59)
[2023-02-26] MEDS ORDERED: methylPREDNISolone 125 MG/2 ML VIAL IV STA (16:59)
[2023-02-26] MEDS ORDERED: SODIUM CHLORIDE 0.9% 1,000 ML IV SCH (17:00)
[2023-02-26] MEDS: MAGNESIUM SULFATE / D5W 1 GM/100 ML BAG IV SCH ×2 (17:17→17:50)
[2023-02-26 17:24] LABS: Basophils # (auto) 0.11 K/uL (0.00-0.20); Basophils % (auto) 1.5 %; Eosinophils # (auto) 0.44 K/uL (0.00-0.50); Eosinophils % (auto) 6.1 %; Hematocrit (blood only) 50.9 % (42.0-52.0); Hemoglobin 17.8 g/dl (14.0-18.0); Immature Granulocytes # (auto) 0.09 K/uL (0.01-0.20); Immature Granulocytes % (auto) 1.3 %; Lymphocytes # (auto) 1.62 K/uL (1.20-3.40); Lymphocytes % (auto) 22.6 %; Mean Corpuscular Hemoglobin 31.9 pg (25.0-34.0); Mean Corpuscular Volume 91.2 fL (80.0-100.0); Mean Platelet Volume 9.4 fL (9.4-12.4); Monocytes # (auto) 0.66 K/uL (0.11-0.59); Monocytes % (auto) 9.2 %; Neutrophils # (auto) 4.24 K/uL (1.40-6.50); Neutrophils % (auto) 59.3 %; Platelet Count 267 K/uL (130-400); RDW Coefficient of Variation 12.9 % (11.5-14.5); RDW Standard Deviation 43.8 fL (36.4-46.3); Red Blood Count 5.58 M/uL (4.70-6.10); White Blood Count 7.16 K/ul (4.8-10.8)
[2023-02-26 17:30] LABS: Base Excess VBG 5.6 mEq/L; HCO3 VBG 33 mmol/L; Oxygen Saturation VBG < 60.0 %; PCO2 VBG 58 mmHg (38-50); PO2 VBG 32 mmHg; pH VBG 7.36 (7.36-7.41)
[2023-02-26 17:41] LABS: Alanine Aminotransferase 15 U/L (7-52); Albumin Level 4.5 gm/dl (3.4-5.0); Alkaline Phosphatase 63 U/L (34-104); Anion Gap 3 (3-11); Aspartate Aminotransferase 19 U/L (13-39); BUN Creatinine Ratio 16.7 (10-20); Bilirubin,Total 0.7 mg/dl (0.2-1.0); Blood Urea Nitrogen 14 mg/dl (6-23); Carbon Dioxide 31 mmol/L (21-32); Chloride 103 mmol/L (98-107); Est GFR (Non-African American) 93.2 ml/min; Globulin 2.3 gm/dl (2.5-4.0); Glucose 82 mg/dl (70-99(Fasting)); Magnesium 2.1 mg/dl (1.7-2.4); Potassium 3.9 mmol/L (3.5-5.1); Sodium 137 mmol/L (136-145); Total Protein 6.8 gm/dl (6.0-8.3)
[2023-02-26 17:54] LABS: Partial Thromboplastin Time 28.8 Seconds (21.0-31.0); Troponin I High Sensitivity 104.5 pg/ml (0-20)
--- NOTE | 2023-02-26 18:02 | XRay Report ---
XR chest 1V portable CLINICAL HISTORY: Dyspnea TECHNIQUE: Single frontal radiograph of the chest was obtained. Comparison: Comparison is made to rib series 10/29/[address] chest 02/11/2023. FINDINGS: No lines and tubes are seen. The cardiomediastinal silhouette is normal. Emphysema is seen. Focal den sity in the left lower lung corresponds to a focus of scarring/atelectasis seen on prior CT. No evide nce of pleural effusion or pneumothorax. IMPRESSION: No acute chest disease. ACT 112: Negative or not required by law. Electronically signed by: Juanjo Parikh M.D. 02/26/2023 6:00 PM
[2023-02-26 18:11] LABS: Adenovirus PCR Not Detected (NotDetected); Bordetella parapertussis PCR Not Detected (NotDetected); Bordetella pertussis PCR Not Detected (NotDetected); Chlamydia pneumoniae PCR Not Detected (NotDetected); Coronavirus 229E PCR Not Detected (NotDetected); Coronavirus CoV-2 (COVID19)PCR Not Detected (NotDetected); Coronavirus HKU1 PCR Not Detected (NotDetected); Coronavirus NL63 PCR Not Detected (NotDetected); Coronavirus OC43PCR Not Detected (NotDetected); Human Metapneumovirus PCR Not Detected (NotDetected); Influenza A PCR Not Detected (NotDetected); Influenza B PCR Not Detected (NotDetected); Mycoplasma pneumoniae PCR Not Detected (NotDetected); Parainfluenza Virus 1 PCR Not Detected (NotDetected); Parainfluenza Virus 2 PCR Not Detected (NotDetected); Parainfluenza Virus 3 PCR Not Detected (NotDetected); Parainfluenza Virus 4 PCR Not Detected (NotDetected); Respiratory Syncytial VirusPCR Not Detected (NotDetected); Rhinovirus/Enterovirus PCR Not Detected (NotDetected)
--- NOTE | 2023-02-26 18:13 | History & Physical Report ---
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 daily Methylprednisolone 40 mg IV twice daily Formoterol 20 mcg twice daily nebulization Budesonide 0.5 mg twice daily nebulization Sputum culture and gram stain pending Procalcitonin negative Patient requests nebulizer on discharge as he is struggling first thing in the morning to take his usual Trelegy Ellipta which I will defer to the discharging physician (2) Hypoxia: Plan: Dropped to 82% in PCP office, per PCP note No at home O2 use; patient is currently trying to get supplemental oxygen therapy at home On 1 L in the ED, at 95% SpO2 Given rapid improvement will place 2 step for tomorrow morning in anticipation of discharge (3) Elevated troponin: Plan: 104 --> 69.2 Continuous telemetry monitoring EKG showed NSR without ischemic changes Clinically, patient denies chest pain Suspected demand-ischemia (4) Ex-smoker: Plan: Former tobacco cigarette smoker 1 PPD Quit 1 year ago Plan VTE Prophylaxis - Lovenox Diet - regular Disposition: Admit to med telemetry Admission and Anticipated Discharge Date Admission Date: February 26, 2023 History of Present Illness Chief Complaint: Shortness of breath Primary Care Provider: DO Lopez Bueno Westleyalbertjaswant is a 62yo male with PMH of COPD w/ emphysema, GERD, CAD, arthritis, and former tobacco use. He presents at the behest of his PCP for worsening SOB x1 day. Hx of COPD exacerbations; COPD Gold class D. Elevated troponin of 104 on admission. He endorses SOB, CASTAÑEDA, cough with clear sputum production, and wheezing which started yesterday. No chest pain. No fever. No leukocytosis. No sick contacts. No at home O2 use. Patient did not take Trelegy or albuterol this morning b/c he couldn't take a deep breath. Former tobacco cigarette smoker; quit 1 year ago; no vaping; no alcohol use. In ED, SpO2 fluctuated between approximately 85% on room air; vitals otherwise stable. Patient denies HERNANDEZ, dizziness, sore throat, sinus pressure, hemoptysis, CP, abdominal pain, urinary symptoms, burning with urination, or leg swelling. He reports significant improvement following hour long duoneb given in the ER. Unintentional weight loss over the past year, with most occurring over the past two months (125lb --> 104lb per pt). Chest CT on 02/11/2023 showed extensive emphysema and new 5mm nodule MITZI (rec'd 6-month f/u). Denies PMHx of GA, PE/DVT, or CHF. No recent hospitalizations or surgeries. Allergies Allergy/AdvReac Type Severity Reaction Status Date / Time varenicline [From Chantix] Allergy Unknown Verified 02/26/23 14:12 Home Medications Medication Instructions Recorded Confirmed Type albuterol sulfate 90 mcg/actuation 2 puff inhalation QID PRN 07/22/22 02/26/23 Rx aerosol inhaler (ProAir HFA) Shortness Of Breath #18 grams fluticasone fur. 100 mcg-umeclid 1 inh inhalation DAILY #60 ea 07/22/22 02/26/23 Rx 62.5 mcg-vilant 25 mcg inhalat.powder (Trelegy Ellipta) mirtazapine 15 mg tablet 15 mg PO DAILY #90 tabs 10/03/22 02/26/23 Rx Past Med/Surg History Medical History COPD (chronic obstructive pulmonary disease) Mesenteric abscess Surgical History History of colonoscopy (03/25/19) History of low anterior resection of rectum (04/26/19) Family History Denies family history of Myocardial infarction Stroke Social History Smoking Status: Never smoker Age Quit Using Tobacco: 62; packs per day: 1; Cigarettes Per Day: 20; Second Hand Exposure: No; Do You Dip or Chew Tobacco: No; Hx Alcohol Use: No Hx Substance Use: No Preferred Language: German Communication Ability: Effective Social Work Lecturer Required: No Beliefs That Will Affect Care: None marital status: Current Living Situation: Alone Other Information That Helps Us Care for You: No Feels Safe at Home: Yes Safety Concerns: Feels Safe At This Time caffeine: Yes Assistive Devices: None Review of Systems Review of Systems: All systems reviewed & are unremarkable except as noted in HPI & below Physical Exam Constitutional: well developed and + frail appearing; + not well nourished and no acute distress Eyes: PERRL, conjunctivae normal, anicteric sclerae Respiratory: normal respiratory effort and able to speak in complete sentences; no labored breathing, does not use accessory muscles, no pursed lip breathing and no stridor Auscultation: + wheezes (end expiratory); breath sounds present, no diminished lung sounds, no crackles, no rales and no rhonchi Cardiovascular: RRR, no murmur, no edema Extremities: normal capillary refill; no calf tenderness and no pedal edema Gastrointestinal (Abdomen): normal bowel sounds, soft, nontender, no hepatosplenomegaly Musculoskeletal: no cyanosis or clubbing, extremities motor strength 5/5 Skin: no rashes, warm and dry Neurologic: moves all extremities and awake; not confused Psychiatric: A+Ox3, euthymic affect Genitourinary: no CVA tenderness Results & Data Results & Data Vital Signs (Past 12 Hours) Vital Signs Temp Pulse Pulse Resp BP BP Pulse Ox 02/26/23 16:52 74 02/26/23 17:03 85 L 02/26/23 16:51 76 24 109/73 95 02/26/23 16:50 85 L 02/26/23 16:34 36.6 C 79 28 H 119/66 98 O2 Del Method O2 Flow Rate 02/26/23 16:52 02/26/23 17:03 Room Air 02/26/23 16:51 Nasal Cannula 3 02/26/23 16:50 Nasal Cannula 0 02/26/23 16:34 Room Air Laboratory Results Abnormal lab results 02/26/23 02/26/23 02/26/23 Range/Units 16:51 16:51 17:15 Armstrong # (Auto) 0.66 H (0.11-0.59) K/uL VBG pCO2 58 H (38-50) mmHg Troponin I High Sens 104.5 H* (0-20) pg/ml Globulin 2.3 L (2.5-4.0) gm/dl Diagnostic Findings XR chest 1V portable CLINICAL HISTORY: Dyspnea TECHNIQUE: Single frontal radiograph of the chest was obtained. Comparison: Comparison is made to rib series 10/29/[address] chest 02/11/2023. FINDINGS: No lines and tubes are seen. The cardiomediastinal silhouette is normal. Emphysema is seen. Focal density in the left lower lung corresponds to a focus of scarring/atelectasis seen on prior CT. No evidence of pleural effusion or pneumothorax. IMPRESSION: No acute chest disease. Medications Administered ER Medications Given: Duoneb 12ml Normal saline 1000ml bolus Solu-medrol 125mg IV Mg sulfate 2g IV ECG Rate (beats per minute): 74 Rhythm: normal sinus Findings: no acute ischemic change Comparison ECG Date: from (Feb 26, 2023) Change: no significant change Code Status & VTE Plan Code Status DNR/DNI VTE Prophylaxis Plan VTE Prophylaxis will be ordered: Yes PG Care Time/CCT Total # of Minutes Spent Total Time Spent with Patient: Total time spent is greater than 50% in coordination of care (as documented) at patient's floor/unit and/or counseling patient: Coding Level of Care Code 46648 INT INP/OBS CARE 2/55MIN Diagnoses COPD with emphysema J43.9 Hypoxia R09.02 Elevated troponin R79.89 Ex-smoker Z87.891
[2023-02-26] MEDS ORDERED: MIRTAZAPINE TAB 15 MG TAB PO SCH (21:19)
[2023-02-26] MEDS ORDERED: AZITHROMYCIN 250 MG TAB PO SCH (22:00)
[2023-02-26] MEDS: methylPREDNISolone 40 MG in SYRINGE 0 ML IV SCH (22:02)
[2023-02-26] MEDS: ALBUT/IPRATROP 3MG/0.5MG NEB 3 ML VIAL NEB SCH (22:06)
[2023-02-26] MEDS: FORMOTEROL 20 MCG/2 ML VIAL NEB SCH (22:06)
[2023-02-26] MEDS: BUDESONIDE 0.5 MG/2 ML VIAL (PULMICORT) NEB SCH (22:06)
[2023-02-27] MEDS: BUDESONIDE 0.5 MG/2 ML VIAL (PULMICORT) NEB SCH (07:17)
[2023-02-27] MEDS: FORMOTEROL 20 MCG/2 ML VIAL NEB SCH (07:17)
--- NOTE | 2023-02-27 07:28 | Hospitalist Progress Note ---
Date of Service February 27, 2023 Assessment & Plan (1) COPD with emphysema: Plan: acute on chronic respiratory failure with hypoxia BioFire negative Albuterol/ipratropium 3mg-0.5mg nebulization every 6 hours + q2h PRN Azithromycin 500 mg p.o. daily Methylprednisolone 40 mg IV twice daily Formoterol 20 mcg twice daily nebulization Budesonide 0.5 mg twice daily nebulization Sputum culture and gram stain pending Procalcitonin negative Patient requests nebulizer on discharge as he is struggling first thing in the morning to take his usual Trelegy Ellipta (2) Elevated troponin: Plan: 104 --> 69.2 Suspected demand-ischemia from hypoxia EKG showed NSR without ischemic changes (3) Ex-smoker: Plan: Former tobacco cigarette smoker 1 PPD Quit 1 year ago Plan severe protein calorie malnutrition BMI of 16 this is likely pulmonary cachexia Admission and Anticipated Discharge Date Admission Date: February 26, 2023 Results & Data Results & Data Vital Signs (Past 12 Hours) Vital Signs Temp Pulse Pulse Resp BP Pulse Ox O2 Del Method 02/27/23 02:15 91 Nasal Cannula 02/27/23 01:30 76 02/27/23 02:00 Nasal Cannula 02/27/23 01:24 97.7 F 82 18 105/67 91 Nasal Cannula 02/26/23 23:04 Nasal Cannula 02/26/23 23:04 88 20 103/65 91 Nasal Cannula 02/26/23 22:52 82 17 113/73 90 Nasal Cannula 02/26/23 22:14 99 Room Air 02/26/23 22:06 70 18 94 Nasal Cannula 02/26/23 22:03 68 22 107/65 96 Nebulizer 02/26/23 20:58 70 02/26/23 20:10 75 20 110/68 92 Nasal Cannula O2 Flow Rate 02/27/23 02:15 2 02/27/23 01:30 02/27/23 02:00 2 02/27/23 01:24 2 02/26/23 23:04 2 02/26/23 23:04 2 02/26/23 22:52 2 02/26/23 22:14 2 02/26/23 22:06 2 02/26/23 22:03 02/26/23 20:58 02/26/23 20:10 2 PG Care Time/CCT Total # of Minutes Spent Total Time Spent with Patient: Total time spent is greater than 50% in coordination of care (as documented) at patient's floor/unit and/or counseling patient: Coding Diagnoses COPD with emphysema J43.9 Elevated troponin R79.89 Ex-smoker Z87.891
[2023-02-27] MEDS: ALBUT/IPRATROP 3MG/0.5MG NEB 3 ML VIAL NEB SCH ×2 (07:51→10:50)
[2023-02-27] MEDS ORDERED: ENOXAPARIN INJ 40 MG/0.4 ML SYR SQ SCH (09:00)
[2023-02-27] MEDS: methylPREDNISolone 40 MG in SYRINGE 0 ML IV SCH (10:49)
--- NOTE | 2023-02-27 14:19 | XCELERA ---
[id number]
--- NOTE | 2023-02-27 14:51 | Electrocardiogram Report ---
Test Reason : Blood Pressure : / mmHG Vent. Rate : 074 BPM Atrial Rate : 074 BPM P-R Int : 162 ms QRS Dur : 070 ms QT Int : 362 ms P-R-T Axes : 094 -88 073 degrees QTc Int : 401 ms Normal sinus rhythm Left axis deviation Abnormal ECG When compared with ECG of 14-NOV-2015 16:19, QRS axis Shifted left ST no longer elevated in Anterior leads Confirmed by Jose Tidwell ([id number]) on 02/27/2023 2:51:22 PM Referred By: Princess Pennington Confirmed By:Erick Tidwell
--- NOTE | 2023-02-27 14:52 | Electrocardiogram Report ---
Test Reason : Blood Pressure : / mmHG Vent. Rate : 074 BPM Atrial Rate : 074 BPM P-R Int : 180 ms QRS Dur : 070 ms QT Int : 384 ms P-R-T Axes : 064 -71 056 degrees QTc Int : 426 ms Normal sinus rhythm Left axis deviation Low voltage QRS Abnormal ECG When compared with ECG of 26-FEB-2023 16:45, (unconfirmed) No significant change was found Confirmed by Jose Tidwell ([id number]) on 02/27/2023 2:52:27 PM Referred By: Princess Pennington Confirmed By:Erick Tidwell
--- NOTE | 2023-02-27 15:46 | Discharge Summary ---
Date of Service February 27, 2023 Admission HPI Per Admitting Provider Lopez Alva is a 62yo male with PMH of COPD w/ emphysema, GERD, CAD, arthritis, and former tobacco use. He presents at the behest of his PCP for worsening SOB x1 day. Hx of COPD exacerbations; COPD Gold class D. Elevated troponin of 104 on admission. He endorses SOB, CASTAÑEDA, cough with clear sputum production, and wheezing which started yesterday. No chest pain. No fever. No leukocytosis. No sick contacts. No at home O2 use. Patient did not take Trelegy or albuterol this morning b/c he couldn't take a deep breath. Former tobacco cigarette smoker; quit 1 year ago; no vaping; no alcohol use. In ED, SpO2 fluctuated between approximately 85% on room air; vitals otherwise stable. Patient denies HERNANDEZ, dizziness, sore throat, sinus pressure, hemoptysis, CP, abdominal pain, urinary symptoms, burning with urination, or leg swelling. He reports significant improvement following hour long duoneb given in the ER. Unintentional weight loss over the past year, with most occurring over the past two months (125lb --> 104lb per pt). Chest CT on 02/11/2023 showed extensive emphysema and new 5mm nodule MITZI (rec'd 6-month f/u). Denies PMHx of [place], PE/DVT, or CHF. No recent hospitalizations or surgeries. Principal Diagnosis chronic respiratory failure with hypoxia with acute exacerbation chronic protein malnutrition likely pulmonary cachexia possible bronchitis Discharge Exam patient is extremely thin he is using accessory muscles of respiration but says he is at his baseline. He does require 3 L of oxygen. He has a loose cough but he says this is improved. He feels he is stable to go home. Discharge Data Allergies Allergy/AdvReac Type Severity Reaction Status Date / Time varenicline [From Chantix] Allergy Unknown Verified 02/26/23 14:12 Consultations 02/26/23 17:57 ED Decision to Admit Stat Procedures Performed Chest X-Ray 02/26/23 16:59 XR chest 1V portable CLINICAL HISTORY: Dyspnea TECHNIQUE: Single frontal radiograph of the chest was obtained. Comparison: Comparison is made to rib series 10/29/[address] chest 02/11/2023. FINDINGS: No lines and tubes are seen. The cardiomediastinal silhouette is normal. Emphysema is seen. Focal density in the left lower lung corresponds to a focus of scarring/atelectasis seen on prior CT. No evidence of pleural effusion or pneumothorax. IMPRESSION: No acute chest disease. ACT 112: Negative or not required by law. Electronically signed by: Juanjo Parikh M.D. 02/26/2023 6:00 PM Hospital Course (1) COPD with emphysema: acute on chronic respiratory failure with hypoxia BioFire negative for respiratory viral infection improved overnight, qualifies for oxygen 3 L at rest and with exertion Albuterol/ipratropium 3mg-0.5mg nebulization every 6 hours + q2h PRN Azithromycin 500 mg p.o. daily prednisone 40 mg a day Formoterol 20 mcg twice daily nebulization Budesonide 0.5 mg twice daily nebulization Procalcitonin negative Patient requests nebulizer on discharge as he is struggling first thing in the morning to take his usual Trelegy Ellipta (2) Elevated troponin: 104 --> 69.2 Suspected demand-ischemia from hypoxia EKG showed NSR without ischemic changes Echo without RWMA and preserved EF , conc LVH (3) Ex-smoker: Former tobacco cigarette smoker 1 PPD Quit 1 year ago Plan severe protein calorie malnutrition BMI of 16 this is likely pulmonary cachexia Total Time Total Time Spent Total Time Spent (In Minutes): It required greater than 30 minutes to prepare this patient for discharge Discharge Plan Discharge Items Patient Disposition: Home - Self-Care Reason For Visit: COPD EXACERBATION, HYPOXIA Discharge Diagnosis: copd exacerbation bronchitis low oxygen level Activity: Resume your previous activity Non-emergency contact: Primary Care Provider and Spreader Box Operator Call non-emergency contact if: your symptoms worsen Follow-up/Referrals: [facility] Lee [facility], [facility] [Physician] - Zeeshan Ledbetter, DO [Primary Care Provider] - Diet: Regular Addtl Attending Provider Instructions: Please wear home oxygen at all times on 3 L setting unless instructed otherwise by your physicians complete a tapering course of prednisone therapy complete all of your antibiotics you will be given a prescription for nebulized medication to be used every 4 hours as needed when you get very short of breath, otherwise continue your home inhaled medications as directed by Dr. Lee at the last visit Pending Studies at Discharge: No Stand-Alone Forms: My [place], Work/School Release, Smoking Cessation Medications and DC Order Prescriptions: New azithromycin 250 mg Tablet 500 mg PO Q24H Qty: 4 0RF prednisone 10 mg tablet 10 mg PO Q OTHER DAY Qty: 42 0RF Rx Instructions: 4 a day x 4 d>3 a day x 4 d>2 a day x 4 d>1 a day ipratropium-albuterol 0.5 mg-3 mg(2.5 mg base)/3 mL solution for nebulization 3 ml inhalation Q4H PRN (Reason: wheezing) Qty: 180 3RF Rx Instructions: pt with severe copd Continued mirtazapine 15 mg tablet 15 mg PO DAILY Qty: 90 1RF albuterol sulfate [ProAir HFA] 90 mcg/actuation HFA aerosol inhaler 2 puff INH QID PRN (Reason: Shortness Of Breath) Qty: 18 5RF Trelegy Ellipta 100-62.5-25 mcg blister with device 1 inh INH DAILY Qty: 60 12RF Discharge Orders: Discharge Order (Routine); Ordered 02/27/23 Ordered By: Dayron Velasquez Admission Data Admit Date/Time: 02/26/23 19:00 Attending Provider: Dayron Velasquez Admit Provider: Blu Phan Primary Care Provider: Zeeshan Ledbetter Other Providers: Blu Phan Other Interventions: Discharge Summary Assessment (RN) Last Done: 02/27/23 14:27 Coding Level of Care Code 24510 INP/OBS DISCH >30 MIN Diagnoses COPD with emphysema J43.9 Elevated troponin R79.89 Ex-smoker Z87.891
== END 2023-02-27 14:42 | disposition home or self-care (01) | DRG 190 ==
LOC: ED 16:15 → EDINP 19:00 → INTOOBSV 19:00 → SUATTDRO 19:00 → 2N 02-27 01:12
DX: Z68.1 Body mass index [BMI] 19.9 or less, adult; Z88.8 Allergy status to other drugs, medicaments and biological substances; J40 Bronchitis, not specified as acute or chronic; I25.10 Atherosclerotic heart disease of native coronary artery without angina pectoris; E43 Unspecified severe protein-calorie malnutrition; R79.89 Other specified abnormal findings of blood chemistry; Z87.891 Personal history of nicotine dependence; Z79.899 Other long term (current) drug therapy; J96.21 Acute and chronic respiratory failure with hypoxia; R64 Cachexia; J44.1 Chronic obstructive pulmonary disease with (acute) exacerbation

== ENCOUNTER 2024-09-20 14:15 | Observation (INO) ==
[2024-09-20 14:55] LABS: Basophils % (auto) 1.6 %; Eosinophils # (auto) 0.14 K/uL (0.00-0.50); Eosinophils % (auto) 2.2 %; Hematocrit (blood only) 49.3 % (42.0-52.0); Hemoglobin 16.9 g/dl (14.0-18.0); Immature Granulocytes # (auto) 0.02 K/uL (0.01-0.20); Immature Granulocytes % (auto) 0.3 %; Lymphocytes # (auto) 1.52 K/uL (1.20-3.40); Lymphocytes % (auto) 23.9 %; Mean Corpuscular Hemoglobin 31.1 pg (25.0-34.0); Mean Corpuscular Hgb Conc 34.3 g/dL (32.0-36.0); Mean Corpuscular Volume 90.6 fL (80.0-100.0); Mean Platelet Volume 9.1 fL (9.4-12.4); Monocytes # (auto) 0.53 K/uL (0.11-0.59); Monocytes % (auto) 8.3 %; Neutrophils # (auto) 4.06 K/uL (1.40-6.50); Neutrophils % (auto) 63.7 %; Platelet Count 301 K/uL (130-400); RDW Coefficient of Variation 12.7 % (11.5-14.5); RDW Standard Deviation 41.6 fL (36.4-46.3); Red Blood Count 5.44 M/uL (4.70-6.10); White Blood Count 6.37 K/ul (4.8-10.8)
[2024-09-20] MEDS: dexAMETHasone**PF** 10 MG/ML VIAL IV ONE (14:56)
--- NOTE | 2024-09-20 14:59 | Emergency Department Note ---
Impression & Plan Acute exacerbation of chronic obstructive pulmonary disease, Acute bronchitis ED Provider Note NAME: AMY ACOSTA AGE: 64 SEX: M : 1960 ARRIVES VIA: Walk-In INFORMANT: Patient, ED PROVIDER(S): Godwin Romero DO CHIEF COMPLAINT: Shortness of breath HPI: The patient is a 64-year-old male who presented to the emergency department for evaluation of difficulty breathing. The patient has a history of COPD. The patient has a history of chronic respiratory failure. The patient does no longer use tobacco products. He is been having significant difficulty breathing especially over the last several days. He does take antibiotics right now. The patient called his pulmonary doctor and was sent to the emergency department for further evaluation. ROS: See above HPI for pertinent positives & negatives. A total of 10 systems reviewed and were otherwise negative. PAST MEDICAL HISTORY: See Below PAST SURGICAL HISTORY: See Below FAMILY HISTORY: See Below SOCIAL HISTORY: See Below HOME MEDICATIONS: See Below ALLERGIES: See Below VITALS: See Below PHYSICAL EXAMINATION: GENERAL: The patient is awake and alert. The patient is uncomfortable.. EYES: The conjunctivae are clear. The pupils are round and reactive. EARS, NOSE, MOUTH AND THROAT: The nose is without any evidence of any deformity. NECK: The neck is nontender and supple. RESPIRATORY: Diminished breath sounds are noted throughout. There is tachypnea as well as conversational dyspnea noted. CARDIOVASCULAR: Regular rate and rhythm noted there no murmurs rubs or gallops normal S1 normal S2. GASTROINTESTINAL: The abdomen is soft. Abdomen is nontender. MUSCULOSKELETAL/EXTREMITIES: There is no evidence of gross deformity full range of motion is noted in the hips and shoulders. SKIN: There is no obvious evidence of any rash. There are no petechiae, pallor or cyanosis noted. NEUROLOGIC: Patient is awake alert and oriented x3 MEDICAL DECISION MAKING: The patient is a 64-year-old male who presented to the emergency department for shortness of breath. The patient has a history of chronic COPD. The patient presented with cough which was productive. He was treated with bronchodilator therapy. He was also treated with IV steroids and IV antibiotics for presumed acute bronchitis. He did have a productive cough. I discussed the patient's laboratory and radiographic studies with him. Given his hypoxia as well as his degree of respiratory drive that he was putting forward I did feel the patient was a better candidate for inpatient management. His case was discussed with the [facility]ist group. They have agreed to evaluate the patient in the emergency department for further management and disposition. Triage Nursing notes reviewed. Prior medical records reviewed Vital Signs: reviewed and remarkable for hypoxia. Differential diagnosis: Reactive airway disease, pneumonia, pneumothorax, COPD, CHF, infections, cardiac ischemia, pulmonary embolism, musculoskeletal, gastrointestinal, as well as other pathologies. ER treatment provided: See below Diagnostics interpreted by me: ECG: EKG was obtained in the emergency department. My interpretation is normal sinus rhythm at 94 bpm. There was no ectopy. There was no acute ST segment abnormalities noted. This was compared to a tracing from February 26, 2023. No changes were noted. Cardiac Monitoring: An order was placed for continuous cardiac monitoring. The monitor shows a rate of 85 bpm with sinus rhythm. Laboratory studies: As stated above and show below. Imaging studies: See below. Radiographic imaging was reviewed by myself Consultation(s): I discussed this case with Dr. Steinberg who is on-call for the [facility] hospitalist group. ED COURSE: Procedures: none Critical Care: I have personally spent greater than 35 minutes of critical care time in the direct management of this patient. This includes bedside care, interpretation of diagnostic studies, and testing, discussion with consultants, patient, and family members, and other required patient management activities. This 35 minutes is in excess of all separately billable procedures. Past Med/Surg History Problem List (Updated 09/20/24 @ 18:05 by Godwin Romero DO) Acute bronchitis (Acute) Acute exacerbation of chronic obstructive pulmonary disease (Acute) Acute on chronic respiratory failure with hypoxia and hypercapnia Fatigue Chronic respiratory failure with hypoxia Pulmonary nodule Sleeping difficulties Acute exacerbation of chronic obstructive airways disease (Acute) Acute hypoxemic respiratory failure (Acute) Elevated troponin Rib pain on right side Multiple pulmonary nodules Hypersomnia Ex-smoker Tobacco use disorder, severe, in early remission, dependence Insomnia Screening for malignant neoplasm of prostate Encounter for health maintenance examination in adult Shortness of breath COPD with emphysema Arthritis (Acute) Mesenteric abscess (Acute) COPD (chronic obstructive pulmonary disease) Generalized weakness (Acute) Low body mass index (BMI) RLL pneumonia Colonic diverticular abscess GERD (gastroesophageal reflux disease) Ileus Hypoxia Diverticulitis of intestine with perforation and abscess (Acute) Abdominal pain (Acute) Leukocytosis (Acute) COPD (chronic obstructive pulmonary disease) (Chronic) Tobacco use disorder Diverticulitis (Acute) Coronary artery disease Surgical History History of low anterior resection of rectum (04/26/19) Dr. Baljit Cho, [facility] [place], done for perforated diverticulitis with abscess History of colonoscopy (03/25/19) [facility] [place], Dr. Baljit Cho, sigmoid mucosa congestion, no polyps, recheck in 10 years Family History Denies family history of Myocardial infarction Stroke Social History Smoking Status: Former smoker Tobacco Type: Cigarettes Age Started Using Tobacco: 17; Age Quit Using Tobacco: 62; packs per day: 1; Cigarettes Per Day: 20; Second Hand Exposure: No; Do You Dip or Chew Tobacco: No; Hx Alcohol Use: No Hx Substance Use: No Preferred Language: Spanish Communication Ability: Effective Hand Cigar Maker Required: No Beliefs That Will Affect Care: None marital status: Current Living Situation: Alone Feels Safe at Home: Yes caffeine: Yes Seatbelt Use: always Assistive Devices: None Allergies Allergies Allergy/AdvReac Type Severity Reaction Status Date / Time varenicline [From Chantix] Allergy Unknown Verified 09/09/24 08:22 Home Meds Previous Rx's Medication Instructions Recorded Portable Oxygen #1 ea 05/01/23 Auto Titrating CPAP #1 ea 05/13/24 CPAP Supplies #1 ea 05/13/24 albuterol sulfate 90 mcg/actuation 2 puff inhalation QID PRN 05/13/24 aerosol inhaler Shortness Of Breath #18 grams fluticasone fur. 200 mcg-umeclid 1 inh inhalation DAILY #60 ea 05/13/24 62.5 mcg-vilant 25 mcg inhalat.powder (Trelegy Ellipta) Results & Data (ED) Vital Signs Vital Signs - 24 hr 09/20/24 14:23 09/20/24 14:37 09/20/24 15:13 Temperature 36.4 C L Temperature Source Temporal Artery Scan Pulse Rate 100 H Pulse Rate [Apical] 74 Respiratory Rate 20 16 Respiratory Effort / Characteristics Non-Labored Non-Labored Spontaneous Respiratory Depth Normal Respiratory Pattern Regular Blood Pressure 115/80 Blood Pressure [Left Arm] Blood Pressure Mean 91 Blood Pressure Mean [Left Arm] Blood Pressure Position Sitting Pulse Oximetry 93 86 L 98 Oxygen Delivery Method Room Air Nasal Cannula Nasal Cannula Oxygen Flow Rate 0 4 Sepsis Recent Fever Within 48 Hours No Sepsis New/Unexplained Change in Mental Status N/A Sepsis Action Taken by Nursing No Action Required Oxygen Flow Rate - Titration 4 Pulse Oximetry Post Tiitration 98 09/20/24 15:23 09/20/24 17:00 Temperature Temperature Source Pulse Rate 79 Pulse Rate [Apical] 85 Respiratory Rate 20 Respiratory Effort / Characteristics Respiratory Depth Respiratory Pattern Blood Pressure Blood Pressure [Left Arm] 120/78 Blood Pressure Mean Blood Pressure Mean [Left Arm] 92 Blood Pressure Position Pulse Oximetry 93 Oxygen Delivery Method Nasal Cannula Oxygen Flow Rate 2 Sepsis Recent Fever Within 48 Hours Sepsis New/Unexplained Change in Mental Status Sepsis Action Taken by Nursing Oxygen Flow Rate - Titration Pulse Oximetry Post Tiitration Home Medications Current Medication List: was personally reviewed by me Laboratory Data Attestation: I reviewed the patient's lab results. 09/20/24 14:37 09/20/24 15:27 Lab Results 09/20/24 09/20/24 09/20/24 Range/Units 14:37 15:15 15:17 WBC 6.37 (4.8-10.8) K/ul RBC 5.44 (4.70-6.10) M/uL Hgb 16.9 (14.0-18.0) g/dl Hct 49.3 (42.0-52.0) % MCV 90.6 (80.0-100.0) fL MCH 31.1 (25.0-34.0) pg MCHC 34.3 (32.0-36.0) g/dL RDW Std Deviation 41.6 (36.4-46.3) fL RDW Coeff of [place] 12.7 (11.5-14.5) % Plt Count 301 (130-400) K/uL MPV 9.1 L (9.4-12.4) fL Immature Gran % (Auto) 0.3 % Neut % (Auto) 63.7 % Lymph % (Auto) 23.9 % [place] % (Auto) 8.3 % Eos % (Auto) 2.2 % Baso % (Auto) 1.6 % Neut # (Auto) 4.06 (1.40-6.50) K/uL Lymph # (Auto) 1.52 (1.20-3.40) K/uL [place] # (Auto) 0.53 (0.11-0.59) K/uL Eos # (Auto) 0.14 (0.00-0.50) K/uL Baso # (Auto) 0.10 (0.00-0.20) K/uL Immature Gran # (Auto) 0.02 (0.01-0.20) K/uL PT 10.9 (9.0-12.0) Seconds INR 1.0 (0.9-1.1) APTT 30 (21-31) Seconds PTT Ratio 1.1 VBG pH 7.35 L (7.36-7.41) VBG pCO2 59 H (38-50) mmHg VBG pO2 29 mmHg VBG HCO3 33 mmol/L VBG O2 Saturation < 60.0 % VBG Base Excess 5.2 mEq/L Sodium 137 (136-145) mmol/L Potassium TNP Chloride 102 (98-107) mmol/L Carbon Dioxide 32 (21-32) mmol/L Anion Gap 3 (3-11) BUN 14 (6-23) mg/dl Creatinine 0.80 (0.6-1.4) mg/dl Est Cr Clr Drug Dosing 62.4 ml/min eGFR 98.21 BUN/Creatinine Ratio 17.5 (10-20) Glucose 86 (70-99(Fasting)) mg/dl Calcium 9.4 (8.6-10.3) mg/dl Total Bilirubin 0.7 (0.2-1.0) mg/dl AST TNP ALT 11 (7-52) U/L Alkaline Phosphatase 66 (34-104) U/L Troponin I High Sens 6.3 (0-20) pg/ml C-Reactive Protein < 0.50 (0-0.5) mg/dl B-Natriuretic Peptide 20 (0-100) pg/ml Total Protein 7.4 (6.0-8.3) gm/dl Albumin 4.5 (3.4-5.0) gm/dl Globulin 2.9 (2.5-4.0) gm/dl Albumin/Globulin Ratio 1.6 (0.9-2) Procalcitonin < 0.02 (0-0.5) ng/ml SARS-CoV-2 (PCR) NEGATIVE (Negative) Influenza Type A (PCR) Negative (Neg) Influenza Type B (PCR) Negative (Neg) RSV (RT-PCR) Negative (Neg) 09/20/24 Range/Units 15:27 WBC (4.8-10.8) K/ul RBC (4.70-6.10) M/uL Hgb (14.0-18.0) g/dl Hct (42.0-52.0) % MCV (80.0-100.0) fL MCH (25.0-34.0) pg MCHC (32.0-36.0) g/dL RDW Std Deviation (36.4-46.3) fL RDW Coeff of [place] (11.5-14.5) % Plt Count (130-400) K/uL MPV (9.4-12.4) fL Immature Gran % (Auto) % Neut % (Auto) % Lymph % (Auto) % [place] % (Auto) % Eos % (Auto) % Baso % (Auto) % Neut # (Auto) (1.40-6.50) K/uL Lymph # (Auto) (1.20-3.40) K/uL [place] # (Auto) (0.11-0.59) K/uL Eos # (Auto) (0.00-0.50) K/uL Baso # (Auto) (0.00-0.20) K/uL Immature Gran # (Auto) (0.01-0.20) K/uL PT (9.0-12.0) Seconds INR (0.9-1.1) APTT (21-31) Seconds PTT Ratio VBG pH (7.36-7.41) VBG pCO2 (38-50) mmHg VBG pO2 mmHg VBG HCO3 mmol/L VBG O2 Saturation % VBG Base Excess mEq/L Sodium (136-145) mmol/L Potassium 4.4 Chloride (98-107) mmol/L Carbon Dioxide (21-32) mmol/L Anion Gap (3-11) BUN (6-23) mg/dl Creatinine (0.6-1.4) mg/dl Est Cr Clr Drug Dosing ml/min eGFR BUN/Creatinine Ratio (10-20) Glucose (70-99(Fasting)) mg/dl Calcium (8.6-10.3) mg/dl Total Bilirubin (0.2-1.0) mg/dl AST ALT (7-52) U/L Alkaline Phosphatase (34-104) U/L Troponin I High Sens (0-20) pg/ml C-Reactive Protein (0-0.5) mg/dl B-Natriuretic Peptide (0-100) pg/ml Total Protein (6.0-8.3) gm/dl Albumin (3.4-5.0) gm/dl Globulin (2.5-4.0) gm/dl Albumin/Globulin Ratio (0.9-2) Procalcitonin (0-0.5) ng/ml SARS-CoV-2 (PCR) (Negative) Influenza Type A (PCR) (Neg) Influenza Type B (PCR) (Neg) RSV (RT-PCR) (Neg) Administered Medications Methylprednisolone 60 mg/ (Syringe) 0.96 mls @ 1.5 mls/min IV Q6H SHANELLE Stop: 10/20/24 17:29 Last Admin: 09/20/24 17:59 Dose: 1.5 mls/min Documented By: BRUCE Discontinued Medications Albuterol (Albut/Ipratrop 3mg/0.5mg Neb 3 Ml Vial) 12 ml NEB ONE ONE; Protocol Stop: 09/20/24 14:44 Last Admin: 09/20/24 15:11 Dose: 12 ml Documented By: NORMAN Azithromycin (Azithromycin 250 Mg Tab) 500 mg PO NOW ONE Stop: 09/20/24 17:02 Last Admin: 09/20/24 17:41 Dose: 500 mg Documented By: BRUCE Dexamethasone Sodium Phosphate (DexamethasonePf 10 Mg/Ml Vial) 10 mg IV NOW ONE Stop: 09/20/24 14:44 Last Admin: 09/20/24 14:56 Dose: 10 mg Documented By: BRUCE Ceftriaxone Sodium (Rocephin) 2,000 mg in 50 mls @ 100 mls/hr IV NOW STA Stop: 09/20/24 16:43 Last Admin: 09/20/24 16:33 Dose: 100 mls/hr Documented By: BRUCE Imaging Data Attestation: I personally reviewed and interpreted this imaging study as follows: My Impression: 1 view chest x-ray was obtained in the emergency department. My interpretation is no free air or definite infiltrate, final report below. Radiologist's Impression: Chest X-Ray 09/20/24 14:29 XR chest 1V portable HISTORY: 64 years-old Male Chest pain, nonspecific COMPARISON: Chest CT 09/06/2024 TECHNIQUE: AP view of the chest FINDINGS: Emphysema with chronic fibrotic changes. Pulmonary nodules better seen on comparison chest CT. No pneumothorax, pleural effusion or pulmonary edema. No airspace consolidation typical for pneumonia. Chronic-appearing bilateral rib fractures. No acute fracture is seen. IMPRESSION: 1. No acute process. 2. Advanced pulmonary emphysema with underlying fibrotic changes. ACT 112: Negative or not required by law. The above report was generated using voice recognition software. It may contain grammatical, syntax or spelling errors. Electronically signed by: Hu Ferris M.D. 09/20/2024 3:05 PM Discharge Plan Visit Data Chief Complaint: Shortness of Breath/Dyspnea Stated Complaint: HARD TO BREATH ED Provider: Godwin Romero Discharge Problem: Acute exacerbation of chronic obstructive pulmonary disease, Acute bronchitis Patient Disposition: Admitted As Inpatient Discharge Instructions Interventions: ED Discharge Assessment Last Done: 09/20/24 17:38 Forms Stand Alone Forms: My Wantr Prescriptions Prescriptions: No Action albuterol sulfate 90 mcg/actuation HFA aerosol inhaler 2 puff INH QID PRN (Reason: Shortness Of Breath) Qty: 18 5RF Rx Instructions: filled 08/05 50 day supply Trelegy Ellipta 200-62.5-25 mcg blister with device 1 inh inhalation DAILY Qty: 60 6RF Rx Instructions: filled 06/22/24 90 day supply (DME) Auto Titrating CPAP Misc See Rx Instructions .MEDSUPPLY Qty: 1 0RF Rx Instructions: Auto PAP with 6-20cm H20. Lifetime usage. G47.33 (DME) CPAP Supplies Misc See Rx Instructions .MEDSUPPLY Qty: 1 0RF Rx Instructions: CPAP supplies, mask, headgear, filters, tubing, water chamber. G47.33 (DME) Portable Oxygen Misc See Rx Instructions .MEDSUPPLY Qty: 1 0RF Rx Instructions: Oxygen 4 liters continuous via nasal cannula on exertion with portable concentrator. DMITRI 99 Referrals Referrals: Zeeshan Ledbetter, [Primary Care Provider] -
--- NOTE | 2024-09-20 15:07 | XRay Report ---
XR chest 1V portable HISTORY: 64 years-old Male Chest pain, nonspecific COMPARISON: Chest CT 09/06/2024 TECHNIQUE: AP view of the chest FINDINGS: Emphysema with chronic fibrotic changes. Pulmonary nodules better seen on comparison chest CT. No pne umothorax, pleural effusion or pulmonary edema. No airspace consolidation typical for pneumonia. 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 No acute fracture is seen. IMPRESSION: 1. No acute process. 2. Advanced pulmonary emphysema with underlying fibrotic changes. ACT 112: Negative or not required by law. The above report was generated using voice recognition software. It may contain grammatical, syntax o r spelling errors. Electronically signed by: Hu Ferris M.D. 09/20/2024 3:05 PM
[2024-09-20] MEDS: ALBUT/IPRATROP 3MG/0.5MG NEB 3 ML VIAL NEB ONE (15:11)
[2024-09-20 15:25] LABS: Base Excess VBG 5.2 mEq/L; HCO3 VBG 33 mmol/L; Oxygen Saturation VBG < 60.0 %; PCO2 VBG 59 mmHg (38-50); PO2 VBG 29 mmHg; pH VBG 7.35 (7.36-7.41)
[2024-09-20 15:33] LABS: Alanine Aminotransferase 11 U/L (7-52); Albumin Globulin Ratio 1.6 (0.9-2); Albumin Level 4.5 gm/dl (3.4-5.0); Alkaline Phosphatase 66 U/L (34-104); Anion Gap 3 (3-11); BUN Creatinine Ratio 17.5 (10-20); Bilirubin,Total 0.7 mg/dl (0.2-1.0); Blood Urea Nitrogen 14 mg/dl (6-23); C Reactive Protein < 0.50 mg/dl (0-0.5); Calcium 9.4 mg/dl (8.6-10.3); Carbon Dioxide 32 mmol/L (21-32); Chloride 102 mmol/L (98-107); Creatinine Clr Calc Pharmacy 62.4 ml/min; Globulin 2.9 gm/dl (2.5-4.0); Glucose 86 mg/dl (70-99(Fasting)); Sodium 137 mmol/L (136-145); Total Protein 7.4 gm/dl (6.0-8.3); Troponin I High Sensitivity 6.3 pg/ml (0-20)
[2024-09-20 15:54] LABS: Partial Thromboplastin Ratio 1.1; Partial Thromboplastin Time 30 Seconds (21-31); Prothrombin Time 10.9 Seconds (9.0-12.0)
[2024-09-20 16:04] LABS: Influenza A virus by PCR Negative (Neg); Influenza B virus by PCR Negative (Neg); RSV by PCR Negative (Neg); SARS CoV2 RNA(COVID-19) Ceph NEGATIVE (Negative)
[2024-09-20] MEDS: cefTRIAXone SODIUM 2,000 MG/50 ML BAG IV STA (16:33)
[2024-09-20] MEDS ORDERED: methylPREDNISolone 125 MG/2 ML VIAL IV SCH (17:15)
--- NOTE | 2024-09-20 17:34 | History & Physical Report ---
Date of Service September 20, 2024 Assessment & Plan (1) Acute on chronic respiratory failure with hypoxia and hypercapnia: (2) Multiple pulmonary nodules: (3) Ex-smoker: (4) Insomnia: (5) GERD (gastroesophageal reflux disease): (6) Arthritis: Plan 64 yo male PMHx COPD, multiple pulmonary nodules, insomnia, former smoker, GERD, arthritis, CAD admitted for COPD exacerbation. #Acute on chronic hypoxic, hypercapnic respiratory failure Continue supplemental oxygen with O2 goal 88-92% Duoneb q6h scheduled Solumedrol 60mg q6h Azithromycin Mucinex Flutter valve, incentive spirometry #ANA CPAP setup ordered FENGI: heart healthy Code status: DNR/DNI DVT prophylaxis: lovenox Isolation: none Disposition: med/tele History of Present Illness Primary Care Provider: Zeeshan Ledbetter, DO 64 yo male PMHx COPD, multiple pulmonary nodules, insomnia, former smoker, GERD, arthritis, CAD admitted for COPD exacerbation. Has had increasing shortness of breath over the last 5 days. He denies any recent illness. He follows with Dr. Lee for oupatient pulmonology - he was directed by Dr. Lee to present to the emergency department. He wears 4L O2 via nasal cannula at home. At the time of admission he continues to endorse shortness of breath. Denies CP, N/V/D, LE edema ED course: CXR without evidence of PNA Rec'd DuoNeb, dexamethasone, CTX Labs largely unremarkable Allergies Allergy/AdvReac Type Severity Reaction Status Date / Time varenicline [From Chantix] Allergy Unknown Verified 09/09/24 08:22 Home Medications Medication Instructions Recorded Confirmed Type Portable Oxygen #1 ea 05/01/23 05/01/23 Rx Auto Titrating CPAP #1 ea 05/13/24 05/13/24 Rx CPAP Supplies #1 ea 05/13/24 05/13/24 Rx albuterol sulfate 90 mcg/actuation 2 puff inhalation QID PRN 05/13/24 09/20/24 Rx aerosol inhaler Shortness Of Breath #18 grams fluticasone fur. 200 mcg-umeclid 1 inh inhalation DAILY #60 ea 05/13/24 09/20/24 Rx 62.5 mcg-vilant 25 mcg inhalat.powder (Trelegy Ellipta) Past Med/Surg History Problem List (Updated 09/20/24 @ 18:05 by Godwin Romero DO) Acute bronchitis (Acute) Acute exacerbation of chronic obstructive pulmonary disease (Acute) Acute on chronic respiratory failure with hypoxia and hypercapnia Fatigue Chronic respiratory failure with hypoxia Pulmonary nodule Sleeping difficulties Acute exacerbation of chronic obstructive airways disease (Acute) Acute hypoxemic respiratory failure (Acute) Elevated troponin Rib pain on right side Multiple pulmonary nodules Hypersomnia Ex-smoker Tobacco use disorder, severe, in early remission, dependence Insomnia Screening for malignant neoplasm of prostate Encounter for health maintenance examination in adult Shortness of breath COPD with emphysema Arthritis (Acute) Mesenteric abscess (Acute) COPD (chronic obstructive pulmonary disease) Generalized weakness (Acute) Low body mass index (BMI) RLL pneumonia Colonic diverticular abscess GERD (gastroesophageal reflux disease) Ileus Hypoxia Diverticulitis of intestine with perforation and abscess (Acute) Abdominal pain (Acute) Leukocytosis (Acute) COPD (chronic obstructive pulmonary disease) (Chronic) Tobacco use disorder Diverticulitis (Acute) Coronary artery disease Surgical History History of low anterior resection of rectum (04/26/19) Dr. Baljit Cho, [facility] [place], done for perforated diverticulitis with abscess History of colonoscopy (03/25/19) [facility] [place], Dr. Baljit Cho, sigmoid mucosa congestion, no polyps, recheck in 10 years Family History Denies family history of Myocardial infarction Stroke Social History Smoking Status: Former smoker Tobacco Type: Cigarettes Age Started Using Tobacco: 17; Age Quit Using Tobacco: 62; packs per day: 1; Cigarettes Per Day: 20; Second Hand Exposure: No; Do You Dip or Chew Tobacco: No; Hx Alcohol Use: No Hx Substance Use: No Preferred Language: Mauritanian Communication Ability: Effective Dust Mop Maker Required: No Beliefs That Will Affect Care: None marital status: Current Living Situation: Alone Feels Safe at Home: Yes caffeine: Yes Seatbelt Use: always Assistive Devices: None Review of Systems Review of Systems: reviewed, per HPI Physical Exam Physical Exam: Constitutional: age appropriate, no acute distress HEENT: NCAT, no conjunctival injection CV: regular rhythm, extremities well-perfused, no LE edema Resp: Decreased breath sound b/l, no significant wheeze GI: nondistended MSK: no gross deformities appreciated Skin: warm, dry, no rash appreciated Neuro: alert, oriented, no focal neurologic deficit appreciated Results & Data Results & Data Vital Signs (Past 12 Hours) Vital Signs Temp Pulse Pulse Resp BP BP Pulse Ox 09/20/24 17:00 85 20 120/78 93 09/20/24 15:23 79 09/20/24 15:13 74 16 98 09/20/24 14:37 86 L 09/20/24 14:23 36.4 C L 100 H 20 115/80 93 O2 Del Method O2 Flow Rate 09/20/24 17:00 Nasal Cannula 2 09/20/24 15:23 09/20/24 15:13 Nasal Cannula 4 09/20/24 14:37 Nasal Cannula 0 09/20/24 14:23 Room Air Code Status & VTE Plan VTE Prophylaxis Plan VTE Prophylaxis will be ordered: Yes Supervising Physician Co-Signing Physician Notes ATTESTATION I also saw the patient and confirmed [place] portions of the history and exam. I agree with the impression and plan in the resident documentation, and as summarized below. Patient with progressively increasing difficulty breathing over the last few days and he was instructed to come to the ED by his bow repairer custom. Upon my exam around 5 pm, he reports improved symptoms compared to his presentation. EXAM VSS. He is currently on oxygen at 3 lpm A/O. NAD. He can talk in full and complete sentences. Lungs with prolonged exp phase with some end-exp wheeze CV regular DATA Labs CBC and BMP Imaging CXR with chronic respiratory findings, no acute change Micro PCR negative for flu, RSV, COVID Blood cultures pending IMPRESSION & PLAN Acute on chronic hypoxic hypercapnic RF Supplemental oxygen IV steroids Azithromycin Duonebs Additional per resident documentation Resident Activity Tracking Resident Involvement: Resident Care Provided Care Provided: Adult Hospital Medicine (5) GERD (gastroesophageal reflux disease) Esophagitis presence: esophagitis presence not specified Qualified Code(s): K21.9 - Gastro-esophageal reflux disease without esophagitis
[2024-09-20] MEDS: AZITHROMYCIN 250 MG TAB PO ONE (17:41)
[2024-09-20 17:58] LABS: Potassium 4.4 mmol/L (3.5-5.1)
[2024-09-20] MEDS: methylPREDNISolone 60 MG in SYRINGE 0 ML IV SCH (17:59)
[2024-09-20] MEDS ORDERED: ALUMINUM/MAGNESIUM SUSP 30 ML UDC PO PRN (18:30)
[2024-09-20] MEDS ORDERED: POLYETHYLENE (MIRALAX) 17 GM PACK PO PRN (18:30)
[2024-09-20] MEDS ORDERED: MELATONIN 3 MG TAB PO PRN (18:30)
[2024-09-20] MEDS ORDERED: MAGNESIUM HYDROXIDE SUSP 30 ML UDC PO PRN (18:30)
[2024-09-20] MEDS ORDERED: ACETAMINOPHEN 325 MG TAB PO PRN (18:30)
[2024-09-20] MEDS ORDERED: ALBUTEROL HFA 8 GM INHALER INH PRN (18:30)
[2024-09-20] MEDS ORDERED: ONDANSETRON INJ 2 MG/ML 2 ML VIAL IV PRN (18:30)
[2024-09-20] MEDS: ALBUT/IPRATROP 3MG/0.5MG NEB 3 ML VIAL NEB SCH (20:36)
[2024-09-20] MEDS: guaiFENesin 600 MG TABCR PO SCH (20:44)
[2024-09-20] MEDS: ENOXAPARIN INJ 40 MG/0.4 ML SYR SQ SCH (20:44)
[2024-09-21 06:10] LABS: Basophils # (auto) 0.01 K/uL (0.00-0.20); Basophils % (auto) 0.2 %; Hematocrit (blood only) 42.4 % (42.0-52.0); Hemoglobin 14.5 g/dl (14.0-18.0); Immature Granulocytes # (auto) 0.03 K/uL (0.01-0.20); Immature Granulocytes % (auto) 0.5 %; Lymphocytes # (auto) 0.55 K/uL (1.20-3.40); Lymphocytes % (auto) 9.9 %; Mean Corpuscular Hemoglobin 30.7 pg (25.0-34.0); Mean Corpuscular Hgb Conc 34.2 g/dL (32.0-36.0); Mean Corpuscular Volume 89.8 fL (80.0-100.0); Monocytes # (auto) 0.04 K/uL (0.11-0.59); Monocytes % (auto) 0.7 %; Neutrophils % (auto) 88.7 %; Platelet Count 276 K/uL (130-400); RDW Coefficient of Variation 12.3 % (11.5-14.5); Red Blood Count 4.72 M/uL (4.70-6.10); White Blood Count 5.53 K/ul (4.8-10.8)
[2024-09-21 06:35] LABS: Calcium 9.1 mg/dl (8.6-10.3); Creatinine Clr Calc Pharmacy 59.5 ml/min; Potassium 4.4 mmol/L (3.5-5.1)
[2024-09-21] MEDS: AZITHROMYCIN 250 MG TAB PO SCH (09:52)
[2024-09-21 11:16] VITALS: BP 101/59; TEMP 97.9
--- NOTE | 2024-09-21 12:10 | Discharge Summary ---
Date of Service September 21, 2024 Admission HPI Per Admitting Provider 64 yo male PMHx COPD, multiple pulmonary nodules, insomnia, former smoker, GERD, arthritis, CAD admitted for COPD exacerbation. Has had increasing shortness of breath over the last 5 days. He denies any recent illness. He follows with Dr. Lee for oupatient pulmonology - he was directed by Dr. Lee to present to the emergency department. He wears 4L O2 via nasal cannula at home. At the time of admission he continues to endorse shortness of breath. Denies CP, N/V/D, LE edema ED course: CXR without evidence of PNA Rec'd DuoNeb, dexamethasone, CTX Labs largely unremarkable Admission Exam Per Admitting Provider Constitutional: age appropriate, no acute distress HEENT: NCAT, no conjunctival injection CV: regular rhythm, extremities well-perfused, no LE edema Resp: Decreased breath sound b/l, no significant wheeze GI: nondistended MSK: no gross deformities appreciated Skin: warm, dry, no rash appreciated Neuro: alert, oriented, no focal neurologic deficit appreciated Principal Diagnosis Acute on chronic hypoxic hypercapnic respiratory failure Discharge Exam Constitutional: age appropriate, no acute distress HEENT: NCAT, no conjunctival injection CV: regular rhythm, extremities well-perfused, no LE edema Resp: Decreased breath sound b/l, no significant wheeze GI: nondistended MSK: no gross deformities appreciated Skin: warm, dry, no rash appreciated Neuro: alert, oriented, no focal neurologic deficit appreciated Discharge Data Allergies Allergy/AdvReac Type Severity Reaction Status Date / Time varenicline [From Chantix] Allergy Unknown Verified 09/09/24 08:22 Consultations 09/20/24 16:42 ED Decision to Admit Stat Hospital Course (1) Acute on chronic respiratory failure with hypoxia and hypercapnia: (2) Multiple pulmonary nodules: (3) Ex-smoker: (4) Insomnia: (5) GERD (gastroesophageal reflux disease): (6) Arthritis: Plan 64 yo male PMHx COPD, multiple pulmonary nodules, insomnia, former smoker, GERD, arthritis, CAD admitted for COPD exacerbation. #Acute on chronic hypoxic, hypercapnic respiratory failure Continue supplemental oxygen with O2 goal 88-92% Duoneb q6h scheduled Solumedrol 60mg q6h Azithromycin Mucinex Flutter valve, incentive spirometry Prednisone taper on discharge #ANA CPAP setup ordered FENGI: heart healthy Code status: DNR/DNI DVT prophylaxis: lovenox Isolation: none Disposition: med/tele Total Time Total Time Spent Total Time Spent (In Minutes): Rivera Giron DO, attending physician, spent 25 minutes myself seeing the patient, reviewing the chart, and documenting today. Discharge Plan Discharge Items Patient Disposition: Home - Self-Care Reason For Visit: ACUTE ON CHRONIC HYPOXIC, HYPERCAPNIC RESPIRATORY Discharge Diagnosis: ACUTE ON CHRONIC HYPOXIC, HYPERCAPNIC RESPIRATORY FAILURE Activity: Resume your previous activity Activity Comment: as tolerated Non-emergency contact: Primary Care Provider and Surgical Specialist Call non-emergency contact if: you have any medication questions and your symptoms worsen Follow-up/Referrals: Zeeshan Ledbetter DO [Primary Care Provider] - 09/28/24 1:00 pm Diet: Regular Addtl Attending Provider Instructions: You were admitted to the hospital for shortness of breath. You were treated with steroids and supplemental oxygen. Your breathing improved and we feel you are stable for discharge with an additional course of steroids. A discharge summary will be sent to your primary care physician to ensure contin uity of care. Please bring this discharge summary with you to your next office appointment so that your provider can review it at that time. Follow-up appointments: Make a follow-up appointment with your PCP within the next week. It is very important that you follow up with them shortly after discharge from the hospital. Keep all your follow-up appointments as already scheduled. If you cannot make an appointment, notify your provider. Medications: Your medication list has been reviewed and reconciled upon discharge to ensure accuracy and continuity of care. An updated list of all your medications is included with your hospital discharge paperwork. Please review this list closely, and make note of any changes. We sent a new medication called prednisone to your pharmacy. Take prednisone 60mg (3 tabs) for two days, 40mg (2 tabs) for two days, 20mg (1 tab) for two days. If you have any issues filling these prescriptions, please call [phone] and ask to leave a message for Dr. Casey Tinsley. Take your medications as instructed; do not skip a dose of your medicines. Make sure all of your doctors know every medicine you are taking (including yjxr-wei-xwucvec medicines, vitamins, and supplements). Call your primary care provider before taking any new medicines (including ysyq-pyn-fegiojt medicines, vitamins, and supplements), because some of these may interact with your current medications, or may make your symptoms worse. Tell your primary care provider if you cannot afford your medications. CONTACT YOUR PRIMARY CARE PROVIDER if you experience any of the following: Increased shortness of breath Difficulty following your treatment plan, or difficulty taking medications CALL 911 OR GO TO THE EMERGENCY DEPARTMENT if you experience any of the followin g: Sudden, severe abdominal pain or nausea/vomiting Severe chest pain, or chest pain that radiates (moves) to your jaw or arm Sudden, severe shortness of breath or difficulty breathing Thank you for allowing us to participate in your care. Pending Studies at Discharge: No Stand-Alone Forms: My [facility] Medications and DC Order Prescriptions: New prednisone 20 mg tablet 20 mg PO DAILY Qty: 12 0RF Rx Instructions: Take 3 tabs for two days, 2 tabs for two days, one tab for two days Continued albuterol sulfate 90 mcg/actuation HFA aerosol inhaler 2 puff INH QID PRN (Reason: Shortness Of Breath) Qty: 18 5RF Rx Instructions: filled 08/05 50 day supply Trelegy Ellipta 200-62.5-25 mcg blister with device 1 inh inhalation DAILY Qty: 60 6RF Rx Instructions: filled 06/22/24 90 day supply (DME) Auto Titrating CPAP Misc See Rx Instructions .MEDSUPPLY Qty: 1 0RF Rx Instructions: Auto PAP with 6-20cm H20. Lifetime usage. G47.33 (DME) CPAP Supplies Misc See Rx Instructions .MEDSUPPLY Qty: 1 0RF Rx Instructions: CPAP supplies, mask, headgear, filters, tubing, water chamber. G47.33 (DME) Portable Oxygen Misc See Rx Instructions .MEDSUPPLY Qty: 1 0RF Rx Instructions: Oxygen 4 liters continuous via nasal cannula on exertion with portable concentrator. DMITRI 99 Discharge Orders: Discharge Order (Routine); Ordered 09/21/24 Ordered By: Natali Lynn Admission Data Admit Date/Time: 09/20/24 17:01 Attending Provider: Rivera Steinberg Admit Provider: Casey Tinsley Primary Care Provider: Zeeshan Ledbetter Other Providers: Idris,Rivera J Other Interventions: Discharge Summary Assessment (RN) Last Done: 09/21/24 14:58 Supervising Physician Co-Signing Physician Notes ATTESTATION I also saw the patient and confirmed [place] portions of the history and exam. I agree with the impression and plan in the resident documentation, and as orestes valentin below. He feels better this morning. Is back to his home O2 requirement. OOB to BR without difficulty. EXAM VSS. A/O. NAD. He can talk in full and complete sentences. Lungs with marked improvement. Still with prolonged exp phase, but no wheezing. CV regular DATA Labs CBC and BMP reviewed. Imaging CXR with chronic respiratory findings, no acute change Micro PCR negative for flu, RSV, COVID Blood cultures no growth at 24 hours. IMPRESSION & PLAN Acute on chronic hypoxic hypercapnic RF OK for discharge today Home oxygen Prednisone taper Azithromycin Home inhaler regimen Additional per resident documentation Resident Activity Tracking Resident Involvement: Resident Care Provided Care Provided: Adult Hospital Medicine
[2024-09-21 12:38] VITALS: PULSE 104; RESP 22; O2SAT 91
--- NOTE | 2024-09-23 09:05 | Electrocardiogram Report ---
Test Reason : Blood Pressure : */* mmHG Vent. Rate : 94 BPM Atrial Rate : 94 BPM P-R Int : 162 ms QRS Dur : 72 ms QT Int : 324 ms P-R-T Axes : 87 270 82 degrees QTcB Int : 405 ms Normal sinus rhythm Right superior axis deviation Abnormal ECG When compared with ECG of 26-Feb-2023 18:23, No significant change was found Confirmed by Manuel Henry ([id number]) on 09/23/2024 9:04:47 AM Referred By: Confirmed By: Manuel Henry
== END 2024-09-21 15:25 | disposition home or self-care (01) | DRG 189 ==
LOC: ED 14:15 → 2N 17:01 → INTOOBSV 17:01 → 2N 17:38